=== PATIENT | female | born 1960 | race Caucasian/White ===

== ENCOUNTER 2017-02-04 14:15 | Inpatient (IN) | payer SELFPAY ==
[~2017-02-04] VITALS: Ht 165.1 cm; Wt 60.6 kg
[2017-02-04 14:16] VITALS: BP 137/77; PULSE 104; RESP 18; TEMP 100.2; O2SAT 97
[2017-02-04] MEDS ORDERED: LISI20TA PO (14:31)
[2017-02-04] MEDS ORDERED: SODIUM CHLOR 0.9% 1000 ML INJ 1,000 ML IV ONE ×2 (14:45→15:30)
[2017-02-04] MEDS ORDERED: KETOROLAC TROMETHAMINE 30 MG/ML (IVP) VIAL IV PUSH ONE (14:45)
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
--- NOTE | 2017-02-04 15:13 | RADRPT ---
EXAM DATE/TIME: 02/04/2017 14:49 [facility] COMPARISON: No previous studies available for comparison. INDICATIONS : Left leg swelling. MEDICAL HISTORY : None. SURGICAL HISTORY : None. ENCOUNTER: Initial ACUITY: 1 day PAIN SCORE: 0/10 LOCATION: Left leg. TECHNIQUE: Venous ultrasound of the leg was performed from the inguinal ligament to the proximal calf. Real-roby e, color Doppler and spectral tracing, compression and augmentation techniques were used. FINDINGS: There is normal compressibility of the deep venous system from the inguinal region to the proximal ca lf. No echogenic clot is seen in the lumen of the common femoral, femoral, popliteal, and posterior tibial veins. There is a normal response of the venous system to proximal and distal augmentation an d respiration. Multiple lymph nodes are noted in the groin. The largest measure up to 2.9 x 1.6 x 1. 2 cm. There is a small to moderate-sized Ronquillo's cyst in the popliteal fossa measuring 2.5 x 2.5 x 0. 9 cm. CONCLUSION: 1. No evidence of deep venous thrombosis. 2. Multiple moderate-sized Ronquillo's cyst. 3. Multiple lymph nodes in the left groin. Zhen Owen MD on February 04, 2017 at 15:11 Board Certified Radiologist. This report was verified electronically.
[2017-02-04 15:15] LABS: BASOPHIL # 0.1 TH/MM3 (0-0.2); BASOPHIL % 0.5 % (0.0-2.0); EOSINOPHIL # 0.1 TH/MM3 (0-0.4); EOSINOPHIL % 0.6 % (0.0-4.0); HEMATOCRIT 33.2 % (35.0-46.0); HEMO FLAGS DIFF FINAL; LYMPH % 9.5 % (9.0-44.0); LYMPHOCYTE # 1.2 TH/MM3 (1.0-4.8); MEAN CELL VOLUME 107.5 FL (80.0-100.0); MEAN CORPUSCULAR HEMOGLOBIN 36.8 PG (27.0-34.0); MEAN CORPUSCULAR HGB CONC 34.2 % (32.0-36.0); MONO % 7.9 % (0.0-8.0); NEUT % 81.5 % (16.0-70.0); PLATELET COUNT 573 TH/MM3 (150-450); RED BLOOD COUNT 3.09 MIL/MM3 (4.00-5.30); RED CELL DISTRIBUTION WIDTH 14.3 % (11.6-17.2); WHITE BLOOD COUNT 12.3 TH/MM3 (4.0-11.0)
[2017-02-04] MEDS ORDERED: PIPERACIL-TAZO 4.5 GM PREMIX 100 ML IV ONE (15:30)
[2017-02-04] MEDS ORDERED: VANCOMYCIN INJ 1,000 MG in SODIUM CHLOR 0.9% 250 ML INJ 250 ML IV ONE (15:30)
[2017-02-04 15:31] LABS: ALCOHOL LESS THAN 3 MG/DL (0-5); ALKALINE PHOSPHATASE 201 U/L (45-117); ALT (GPT) 39 U/L (10-53); ANION GAP 14 MEQ/L (5-15); AST (GOT) 29 U/L (15-37); BICARBONATE 26.7 MEQ/L (21.0-32.0); BLOOD UREA NITROGEN 7 MG/DL (7-18); CHLORIDE 97 MEQ/L (98-107); GLOMERULAR FILTRATION RATE 64 ML/MIN (>89); SODIUM (NA) 138 MEQ/L (136-145); TOTAL BILIRUBIN ADULT 0.7 MG/DL (0.2-1.0)
[2017-02-04 15:33] LABS: POTASSIUM 2.4 MEQ/L (3.5-5.1)
[2017-02-04] MEDS ORDERED: POTASSIUM CHLORIDE 25 MEQ EFFERVESCENT TAB PO ONE (15:45)
--- NOTE | 2017-02-04 15:55 | RADRPT ---
EXAM DATE/TIME: 02/04/2017 15:24 [facility] COMPARISON: No previous studies available for comparison. INDICATIONS : Left leg swelling and pain. MEDICAL HISTORY : None. SURGICAL HISTORY : None. ENCOUNTER: Initial ACUITY: 1 week PAIN SCORE: 5/10 LOCATION: Left leg. FINDINGS: A single view of the chest demonstrates the lungs to be symmetrically aerated without evidence of mas s, infiltrate or effusion. The cardiomediastinal contours are unremarkable. Osseous structures are intact. There are multiple overlying electrocardiogram leads. CONCLUSION: No acute disease. Zhen Owen MD on February 04, 2017 at 15:53 Board Certified Radiologist. This report was verified electronically.
[2017-02-04 16:57] LABS: BACTERIA, URINE RARE /hpf; BLOOD, URINE SMALL (NEG); COMMENT (UR) CULT NOT INDICATED; CULTURE IF INDICATED CULT NOT INDICATED; GLUCOSE,URINE NEG (NEG); KETONE, URINE NEG (NEG); NITRITE,URINE NEG (NEG); PH, URINE 5.5 (5.0-8.5); SQUAMOUS EPITHELIAL CELL URINE <1 /hpf (0-5); URINE COLOR YELLOW (YELLW/STRAW)
[2017-02-04] MEDS ORDERED: cloNIDine HCL 0.1 MG TAB PO PRN (17:15)
[2017-02-04] MEDS ORDERED: Vancomycin Consult Pharmacy 1 EA OTHER SCH (17:15)
[2017-02-04] MEDS ORDERED: ENALAPRILAT 1.25 MG/ML VIAL IV PUSH PRN (17:15)
[2017-02-04] MEDS ORDERED: HALOPERIDOL LACTATE 5 MG/ML AMP IM PRN (17:30)
[2017-02-04] MEDS ORDERED: GLUCAGON 1 MG/ML VIAL OTHER PRN (17:30)
[2017-02-04] MEDS ORDERED: LACTULOSE SYRUP 20 GM/30 ML CUP PO PRN (17:30)
[2017-02-04] MEDS ORDERED: BISACODYL 10 MG SUPP RECTAL PRN (17:30)
[2017-02-04] MEDS ORDERED: MAGNESIUM HYDROXIDE SUSP 30 ML CUP PO PRN (17:30)
[2017-02-04] MEDS ORDERED: ONDANSETRON HCL 4 MG/2 ML VIAL IVP PRN (17:30)
[2017-02-04] MEDS ORDERED: LORazepam 2 MG/ML VIAL IV PUSH PRN ×4 (17:30)
[2017-02-04] MEDS ORDERED: SODIUM CHLORIDE 0.9% FLUSH 10 ML FLUSH IV FLUSH PRN (17:30)
[2017-02-04] MEDS ORDERED: DEXTROSE 50% IN WATER 50 ML VIAL(D50) IV PUSH PRN (17:30)
[2017-02-04] MEDS ORDERED: IBUPROFEN 400 MG TAB PO PRN (17:30)
[2017-02-04] MEDS ORDERED: SENNOSIDES 8.6 MG TAB PO PRN (17:30)
[2017-02-04] MEDS ORDERED: KETOROLAC TROMETHAMINE 30 MG/ML (IVP) VIAL IV PUSH PRN (17:30)
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
[2017-02-04] MEDS ORDERED: POTASSIUM CHLORIDE 20 MEQ CONTROLLED RELEASE TAB PO ONE (18:15)
[2017-02-04] MEDS: POTASSIUM CHLOR 10 MEQ PREMIX 100 ML IV SCH ×3 (19:16→23:39)
[2017-02-04 20:47] VITALS: BP 104/52; PULSE 88; RESP 18; TEMP 98.4; O2SAT 96
[2017-02-04] MEDS: INSULIN ASPART SUPPLEMENTAL SCALE SQ SCH (21:00)
[2017-02-04] MEDS: DOCUSATE SODIUM 50 MG/SENNA 8.6 MG TAB PO SCH (21:00)
[2017-02-04] MEDS: IBUPROFEN 800 MG TAB PO PRN (21:36)
[2017-02-04] MEDS: PIPERACIL-TAZO 3.375 GM PREMIX 50 ML IV SCH (21:37)
[2017-02-04] MEDS: HEPARIN SODIUM - SQ 10,000 UNITS/ML VIAL SQ SCH (21:38)
[2017-02-04] MEDS: SODIUM CHLORIDE 0.9% FLUSH 10 ML FLUSH IV FLUSH SCH (21:39)
[2017-02-04] MEDS: MORPHINE SULFATE 4 MG/ML INJ IV PUSH PRN (23:49)
[2017-02-05] VITALS (11 sets, daily range): BP systolic 111–136; BP diastolic 56–64; PULSE 75–91; RESP 18–20; TEMP 97.2–100; O2SAT 94–99
[2017-02-05] MEDS: PIPERACIL-TAZO 3.375 GM PREMIX 50 ML IV SCH ×4 (03:11→20:35)
[2017-02-05] MEDS ORDERED: VANCOMYCIN 1,500 MG/NS 500 ML IV ONE ×2 (06:00)
[2017-02-05] MEDS: INSULIN ASPART SUPPLEMENTAL SCALE SQ SCH ×4 (08:00→20:36)
[2017-02-05] MEDS: THIAMINE HCL 100 MG TAB PO SCH (08:27)
[2017-02-05] MEDS: LISINOPRIL 20 MG TAB PO SCH (08:27)
[2017-02-05] MEDS: FOLIC ACID 1 MG TAB PO SCH (08:27)
[2017-02-05] MEDS: MULTIVITAMINS/MINERALS THERAPEUTIC TAB PO SCH (08:27)
[2017-02-05] MEDS: SODIUM CHLORIDE 0.9% FLUSH 10 ML FLUSH IV FLUSH SCH ×2 (08:28→20:35)
[2017-02-05] MEDS: HEPARIN SODIUM - SQ 10,000 UNITS/ML VIAL SQ SCH ×2 (08:28→20:36)
[2017-02-05] MEDS: NICOTINE 21 MG/24 HR PATCH T-DERMAL SCH (08:28)
[2017-02-05] MEDS: REMOVE OLD PATCH T-DERMAL SCH (08:28)
[2017-02-05] MEDS: DOCUSATE SODIUM 50 MG/SENNA 8.6 MG TAB PO SCH ×2 (08:28→20:36)
[2017-02-05] MEDS: KETOROLAC TROMETHAMINE 30 MG/ML (IVP) VIAL IV PUSH PRN ×3 (08:29→20:43)
[2017-02-05 09:12] LABS: AUTOMATED NEUTROPHIL # 6.7 TH/MM3 (1.8-7.7); BASOPHIL % 0.5 % (0.0-2.0); EOSINOPHIL # 0.1 TH/MM3 (0-0.4); EOSINOPHIL % 1.6 % (0.0-4.0); HEMATOCRIT 25.9 % (35.0-46.0); HEMO FLAGS DIFF FINAL; LYMPH % 12.6 % (9.0-44.0); LYMPHOCYTE # 1.1 TH/MM3 (1.0-4.8); MEAN CELL VOLUME 109.1 FL (80.0-100.0); MEAN CORPUSCULAR HEMOGLOBIN 37.3 PG (27.0-34.0); MEAN CORPUSCULAR HGB CONC 34.2 % (32.0-36.0); MONO % 8.2 % (0.0-8.0); NEUT % 77.1 % (16.0-70.0); PLATELET COUNT 447 TH/MM3 (150-450); RED BLOOD COUNT 2.37 MIL/MM3 (4.00-5.30); RED CELL DISTRIBUTION WIDTH 15.3 % (11.6-17.2); WHITE BLOOD COUNT 8.7 TH/MM3 (4.0-11.0)
[2017-02-05 09:53] LABS: BICARBONATE 22.9 MEQ/L (21.0-32.0)
[2017-02-05 09:57] LABS: POTASSIUM 2.9 MEQ/L (3.5-5.1)
[2017-02-05] MEDS: MORPHINE SULFATE 4 MG/ML INJ IV PUSH PRN ×2 (10:08→18:16)
[2017-02-05] MEDS: ACETAMINOPHEN 325 MG TAB PO PRN (11:24)
[2017-02-05 12:36] LABS: TRANSFERRIN IRON PROFILE 136 MG/DL (200-360)
[2017-02-05 12:39] LABS: FERRITIN 219 NG/ML (8-252)
--- NOTE | 2017-02-05 15:50 | HHI.PR ---
Subjective Remarks baseline is very active- go dancing every night till about 2 weeks ago, fever and chills then noted swelling of the left foot progressing to the leg and knee to the point that she needed a walker to get around noted swelling of the left elbow complains of pain left knee, foot and elbow states the swelling and redness actually is improved compared to admission from last night Objective Vitals Vital Signs Date Time Temp Pulse Resp B/P (MAP) Pulse Ox O2 Delivery O2 Flow Rate FiO2 02/05/17 14:45 95 02/05/17 12:34 99.7 85 20 121/61 (81) 95 02/05/17 10:14 16 02/05/17 09:48 18 02/05/17 08:43 99.3 90 20 136/63 (87) 95 02/05/17 08:00 75 02/05/17 05:59 97.2 78 18 115/62 (79) 95 02/05/17 04:24 96 02/05/17 00:00 99.2 80 18 120/59 (79) 95 02/04/17 20:47 98.4 88 18 104/52 (69) 96 02/04/17 16:55 18 I/O 02/04/17 02/04/17 02/04/17 02/05/17 02/05/17 02/05/17 07:00 15:00 23:00 07:00 15:00 23:00 Intake Total 2300 ml 250 ml Balance 2300 ml 250 ml Intake IV Total 2300 ml 250 ml # Voids 3 Result Diagram: 02/05/17 0756 02/05/17 0756 Imaging Last Impressions Lower Extremity Ultrasound 02/04/17 0000 Signed Impressions: Service Date/Time: Saturday, February 04, 2017 14:49 - CONCLUSION: 1. No evidence of deep venous thrombosis. 2. Multiple moderate-sized Ronquillo's cyst. 3. Multiple lymph nodes in the left groin. Zhen Owen MD Chest X-Ray 02/04/17 0000 Signed Impressions: Service Date/Time: Saturday, February 04, 2017 15:24 - CONCLUSION: No acute disease. Zhen Owen MD Objective Remarks awake and alert, oriented x 3 anciteric lungs no rales regular rhythm abdomen soft, nontender LLE- swelling of the knee with effusion noted on medial area, and swelling of the foot with marked erythema ++ DP,PT, gaot testing deferred A/P Problem List: (1) Sepsis affecting skin ICD Code: A41.9 - Sepsis, unspecified organism (2) Cellulitis of left lower extremity ICD Code: L03.116 - Cellulitis of left lower limb Assessment and Plan This is a 56-year-old female with history of hypertension and borderline diabetes mellitus. She complained of 10 day history of left lower extremity pain and swelling. Started with a blister in the left heel. She then noted progressive pain and swelling of the left foot, ankle and all the way to the knee associated with fever and chills. No purulent discharge. She also complained of left elbow pain from overuse as she was limping and had to use her left upper extremity more than usual. Sepsis secondary to left lower extremity cellulitis r/o septic joints Left elbow effusion- per patient on and off chronic denies any trauma check MRI of the left foot and knee, elbow- if + fluid- get arthrocentesis check ESR, CRP now Continue IV vancomycin and Zosyn and follow-up blood culture Ultrasound of the lower extremity revealed no DVT, + ronquillo's cyst. Pain Management with ibuprofen and IV morphine possible consult Infectious disease Hypokalemia secondary to medication(HCTZ) and alcohol abuse. replace and ff hold hydrochlorothiazide Macrocytic anemia. B12, folate normal ALcohol use- daily - vodka nightly. denies any history of DTS Hypertension. Continue lisinopril with as needed IV Vasotec and clonidine and monitor Borderline diabetes with this. Monitor fingersticks with sliding scale coverage. DVT prophylaxis with subcutaneous heparin Venkat Faust MD Feb 05, 2017 15:50
[2017-02-05 16:09] LABS: HEMOGLOBIN A1a 1.2 %; HEMOGLOBIN A1b 0.8 %; HEMOGLOBIN Ao 86.1 %; HEMOGLOBIN F 0.9 %; HEMOGLOBIN LA1C 1.6 %; HEMOGLOBIN P3 4.8 %
[2017-02-05] MEDS: NS + KCL 20 MEQ INJ 1,000 ML IV SCH (16:29)
[2017-02-05] MEDS: IBUPROFEN 800 MG TAB PO PRN (16:36)
[2017-02-05] MEDS: POTASSIUM CHLOR 10 MEQ PREMIX 100 ML IV SCH ×3 (16:53→19:00)
[2017-02-06] VITALS (9 sets, daily range): BP systolic 132–165; BP diastolic 68–81; PULSE 68–117; RESP 18–24; TEMP 98.3–99; O2SAT 89–96
[2017-02-06] MEDS: PIPERACIL-TAZO 3.375 GM PREMIX 50 ML IV SCH ×4 (02:37→21:30)
[2017-02-06] MEDS: NS + KCL 20 MEQ INJ 1,000 ML IV SCH ×2 (02:38→15:35)
[2017-02-06] MEDS: IBUPROFEN 800 MG TAB PO PRN (02:41)
[2017-02-06] MEDS: MORPHINE SULFATE 4 MG/ML INJ IV PUSH PRN ×5 (04:47→21:29)
[2017-02-06] MEDS ORDERED: VANCOMYCIN INJ 1,500 MG in SODIUM CHLORID 0.9% 500 ML INJ 500 ML IV SCH (06:00)
[2017-02-06 07:04] LABS: AUTOMATED NEUTROPHIL # 5.6 TH/MM3 (1.8-7.7); BASOPHIL % 0.5 % (0.0-2.0); EOSINOPHIL # 0.1 TH/MM3 (0-0.4); EOSINOPHIL % 1.7 % (0.0-4.0); HEMATOCRIT 23.3 % (35.0-46.0); HEMO FLAGS DIFF FINAL; LYMPH % 13.2 % (9.0-44.0); MEAN CELL VOLUME 108.9 FL (80.0-100.0); MEAN CORPUSCULAR HEMOGLOBIN 36.9 PG (27.0-34.0); MEAN CORPUSCULAR HGB CONC 33.9 % (32.0-36.0); NEUT % 76.6 % (16.0-70.0); PLATELET COUNT 370 TH/MM3 (150-450); RED BLOOD COUNT 2.14 MIL/MM3 (4.00-5.30); RED CELL DISTRIBUTION WIDTH 14.9 % (11.6-17.2); WHITE BLOOD COUNT 7.4 TH/MM3 (4.0-11.0)
[2017-02-06 07:26] LABS: BICARBONATE 22.2 MEQ/L (21.0-32.0); POTASSIUM 3.1 MEQ/L (3.5-5.1)
[2017-02-06] MEDS: INSULIN ASPART SUPPLEMENTAL SCALE SQ SCH ×4 (08:00→21:00)
[2017-02-06] MEDS: REMOVE OLD PATCH T-DERMAL SCH (08:39)
[2017-02-06] MEDS: NICOTINE 21 MG/24 HR PATCH T-DERMAL SCH (08:39)
[2017-02-06] MEDS: LISINOPRIL 20 MG TAB PO SCH ×2 (08:40→09:00)
[2017-02-06] MEDS: FOLIC ACID 1 MG TAB PO SCH (08:40)
[2017-02-06] MEDS: HEPARIN SODIUM - SQ 10,000 UNITS/ML VIAL SQ SCH ×2 (08:41→21:00)
[2017-02-06] MEDS: SODIUM CHLORIDE 0.9% FLUSH 10 ML FLUSH IV FLUSH SCH ×2 (08:41→21:30)
[2017-02-06] MEDS: THIAMINE HCL 100 MG TAB PO SCH (08:41)
[2017-02-06] MEDS: MULTIVITAMINS/MINERALS THERAPEUTIC TAB PO SCH (08:41)
[2017-02-06] MEDS: DOCUSATE SODIUM 50 MG/SENNA 8.6 MG TAB PO SCH ×2 (08:41→21:28)
--- NOTE | 2017-02-06 10:57 | HHI.PR ---
Subjective Remarks patient complains of more pain and swelling of the left foot/ankle left elbow increase in swelling + explosive diarrhea- " pretty much for years" had colonoscopy done 2 yers ago- reportedly normal 02/05 baseline is very active- go dancing every night till about 2 weeks ago, fever and chills then noted swelling of the left foot progressing to the leg and knee to the point that she needed a walker to get around noted swelling of the left elbow Objective Vitals Vital Signs Date Time Temp Pulse Resp B/P (MAP) Pulse Ox O2 Delivery O2 Flow Rate FiO2 02/06/17 09:34 68 02/06/17 08:39 96 21 02/06/17 07:49 99.0 79 20 141/74 (96) 93 02/06/17 04:00 98.4 90 18 138/75 (96) 93 02/06/17 02:49 82 02/06/17 00:00 98.3 81 18 132/68 (89) 96 02/05/17 20:49 99 02/05/17 20:00 100.0 91 18 134/64 (87) 94 02/05/17 18:28 18 02/05/17 16:00 99.1 89 20 111/56 (74) 97 02/05/17 15:46 85 02/05/17 14:45 95 02/05/17 12:34 99.7 85 20 121/61 (81) 95 I/O 02/05/17 02/05/17 02/05/17 02/06/17 02/06/17 02/06/17 07:00 15:00 23:00 07:00 15:00 23:00 Intake Total 250 ml 600 ml 347 ml 694 ml Balance 250 ml 600 ml 347 ml 694 ml Intake Oral 600 ml IV Total 250 ml 347 ml 694 ml # Voids 3 2 2 1 # Bowel Movements 0 1 0 Result Diagram: 02/06/1736 02/06/1736 Imaging Last Impressions Lower Extremity Ultrasound 02/04/17 0000 Signed Impressions: Service Date/Time: Saturday, February 04, 2017 14:49 - CONCLUSION: 1. No evidence of deep venous thrombosis. 2. Multiple moderate-sized Ronquillo's cyst. 3. Multiple lymph nodes in the left groin. Zhen Owen MD Chest X-Ray 02/04/17 0000 Signed Impressions: Service Date/Time: Saturday, February 04, 2017 15:24 - CONCLUSION: No acute disease. Zhen Owen MD Last Impressions Lower Extremity Ultrasound 02/04/17 Signed Impressions: Service Date/Time: Saturday, February 04, 2017 14:49 - CONCLUSION: 1. No evidence of deep venous thrombosis. 2. Multiple moderate-sized Ronquillo's cyst. 3. Multiple lymph nodes in the left groin. Zhen Owen MD Chest X-Ray 02/04/17 Signed Impressions: Service Date/Time: Saturday, February 04, 2017 15:24 - CONCLUSION: No acute disease. Zhen Owen MD Objective Remarks awake and alert, oriented x 3 anicteric lungs no rales regular rhythm abdomen soft, nontender LLE- swelling of the knee with effusion noted on medial area, not hot Increase swelling and erythema of the left foot/ankle, very limited range in motion, hot Left elbow with increase effusion, mild erythema - limited flexion ++ DP, PT, radial pulses gait testing deferred A/P Problem List: (1) Sepsis affecting skin ICD Code: A41.9 - Sepsis, unspecified organism (2) Cellulitis of left lower extremity ICD Code: L03.116 - Cellulitis of left lower limb Assessment and Plan This is a 56-year-old female with history of hypertension and borderline diabetes mellitus. She complained of 10 day history of left lower extremity pain and swelling. Started with a blister in the left heel. She then noted progressive pain and swelling of the left foot, ankle and all the way to the knee associated with fever and chills. No purulent discharge. She also complained of left elbow pain from overuse as she was limping and had to use her left upper extremity more than usual. Sepsis secondary to left lower extremity cellulitis- foot/ankle, knee left elbow r/o septic joints with effusion ESR,CRP elevated. no history of trauma MRI of the left foot and knee, elbow- if + fluid- get arthrocentesis Continue IV vancomycin and Zosyn and follow-up blood culture Ultrasound of the lower extremity revealed no DVT, + ronquillo's cyst. prn IV morphine. DC Ibuprofen with decrease H and H ID consult for recommendations Hypokalemia secondary to medication(HCTZ) and alcohol abuse. KCL po daily. FF BMP hold hydrochlorothiazide Acute anemia- denies any black stools or hematemesis, no abdominal pain, no reflux symptoms- hemodynamically stable recheck in am. Iron studies suggest chronic disease. B12, folate normal [facility] guaiac stools, type and x GI consult for evaluation. DC NSAIDs start PPI Macrocytic anemia. B12, folate normal ALcohol use- daily - 2 shots of vodka and 1 glass gin tonic nightly. CIWA protocol Hypertension. Continue lisinopril with as needed IV Vasotec and clonidine and monitor Borderline diabetes with this. Monitor fingersticks with sliding scale coverage. DVT prophylaxis with subcutaneous heparin- hold for possible tap and because of acute drop in H and H Venkat Faust MD Feb 06, 2017 10:57
[2017-02-06] MEDS ORDERED: POTASSIUM BICARBONATE 25 MEQ EFFERVESCENT TAB PO ONE (11:00)
[2017-02-06] MEDS: PANTOPRAZOLE SOD 40 MG DELAYED RELEASE TAB PO SCH (11:33)
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
[2017-02-06] MEDS: LORazepam 1 MG TAB PO PRN ×2 (16:47→22:48)
[2017-02-06] MEDS: VANCOMYCIN INJ 1,500 MG in SODIUM CHLORID 0.9% 500 ML INJ 500 ML IV SCH (16:50)
--- NOTE | 2017-02-06 17:03 | RADRPT ---
EXAM DATE/TIME: 02/06/2017 15:04 [facility] COMPARISON: No previous studies available for comparison. INDICATIONS : Abscess. MEDICAL HISTORY : Hypertension. SURGICAL HISTORY : Exploratory surgery. ENCOUNTER: Initial ACUITY: 2 day PAIN SCORE: 4/10 LOCATION: Left knee TECHNIQUE: Multiplanar, multisequence MRI examination was performed without contrast. FINDINGS: CRUCIATE LIGAMENTS: ACL and PCL are intact. MENISCI: Medial and lateral menisci are intact. COLLATERAL LIGAMENTS: MCL and LCL complexes are intact. BONE/CARTILAGE: Bone marrow signal is homogeneous. Articular cartilage signal is within normal limits. MISCELLANEOUS: A small joint effusion is present. There is edema in the subcutaneous tissues. CONCLUSION: 1. Joint effusion and subcutaneous edema. 2. No evidence of internal derangement Ruy Pereira MD on February 06, 2017 at 16:59 Board Certified Radiologist. This report was verified electronically.
--- NOTE | 2017-02-06 18:20 | RADRPT ---
EXAM DATE/TIME: 02/06/2017 15:04 [facility] COMPARISON: No previous studies available for comparison. INDICATIONS : Abscess. Pt states wound on heel of left foot. MEDICAL HISTORY : Hypertension. SURGICAL HISTORY : Exploratory surgery on abdomen. ENCOUNTER: Initial ACUITY: 2 day PAIN SCORE: 4/10 LOCATION: Left ankle TECHNIQUE: Multiplanar, multisequence MRI examination was performed without contrast. Patient declined having p ost contrast images. Absence of contrast limits detection and characterization of soft tissue abnorm alities. FINDINGS: There is prominent subcutaneous soft tissue swelling about the medial and lateral ankle without drain able fluid collections. In the skin of the posterior calcaneus, there is an oval area of T2 prolonga tion measuring 7 mm is smooth margins. There is soft tissue thickening in the region of the deltoid ligament medial knee and a small area of T2 prolongation in the marrow at the insertion site in the t alus. No definite fracture seen. The Achilles tendon is normal in appearance. The medial and later al tendons are intact. The plantar fascia is normal in configuration. CONCLUSION: 1. 7 mm cutaneous lesion superficial to the posterior calcaneus without extension into the deep tissu es. 2. Probable disruption of the deltoid ligament with associated contusion in the medial talus. 3. Diffuse soft tissue swelling about the ankle in the subcutaneous tissues.. Renato Morales MD on February 06, 2017 at 18:13 Board Certified Radiologist. This report was verified electronically.
[2017-02-06] MEDS ORDERED: DIATRIZOATE MEGLUM/DIATRIZOATE SOD 9 ML CUP PO ONE (20:00)
[2017-02-07] VITALS (7 sets, daily range): BP systolic 123–153; BP diastolic 70–86; PULSE 103–117; RESP 16–24; TEMP 98.4–100.7; O2SAT 91–97
[2017-02-07] MEDS: MORPHINE SULFATE 4 MG/ML INJ IV PUSH PRN ×5 (00:58→20:29)
[2017-02-07] MEDS: PIPERACIL-TAZO 3.375 GM PREMIX 50 ML IV SCH ×4 (01:27→20:29)
--- NOTE | 2017-02-07 01:39 | RADRPT ---
EXAM DATE/TIME: 02/07/2017 01:15 [facility] COMPARISON: No previous studies available for comparison. INDICATIONS : Anemia. ORAL CONTRAST: Prescribed oral contrast ingested. RADIATION DOSE: 6.74 CTDIvol (mGy) MEDICAL HISTORY : Diabetes mellitus type 2. Hypertension. SURGICAL HISTORY : None. ENCOUNTER: Initial ACUITY: 1 day PAIN SCALE: 7/10 LOCATION: abdomen TECHNIQUE: Volumetric scanning of the abdomen and pelvis was performed. Using automated exposure control and ad justment of the mA and/or kV according to patient size, radiation dose was kept as low as reasonably achievable to obtain optimal diagnostic quality images. DICOM format image data is available electro nically for review and comparison. FINDINGS: LOWER LUNGS: Small bilateral pleural effusions and patchy mild parenchymal disease in the lung bases bilaterally. LIVER: Homogeneous density without lesion. There is no dilation of the biliary tree. No calcified gallston es. SPLEEN: Normal size without lesion. PANCREAS: Within normal limits. KIDNEYS: 3 cm cyst arising in the lateral midpole cortex of the right kidney. Miniscule nonobstructing stone. Left kidney is unremarkable ADRENAL GLANDS: 3 separate areas of lobular mass involving the left adrenal gland, largest measuring about 2.5 cm. Th judy are nonspecific. Right adrenal is unremarkable VASCULAR: There is no aortic aneurysm. BOWEL/MESENTERY: The stomach, small bowel, and colon demonstrate no acute abnormality. There is no free intraperitone al air or fluid. ABDOMINAL WALL: Within normal limits. RETROPERITONEUM: There is no lymphadenopathy. BLADDER: No wall thickening or mass. REPRODUCTIVE: Minimal free pelvic fluid. No adnexal mass. INGUINAL: There is no lymphadenopathy or hernia. MUSCULOSKELETAL: Within normal limits for patient age. CONCLUSION: Lobular masses involving the left adrenal gland. Further characterization with chemical shift MRI sug gested. Right renal cyst. Minimal nonspecific free pelvic fluid. Lung base infiltrates and effusions Rowdy Linder MD on February 07, 2017 at 1:30 Board Certified Radiologist. This report was verified electronically.
[2017-02-07] MEDS: NS + KCL 20 MEQ INJ 1,000 ML IV SCH ×2 (04:35→14:10)
[2017-02-07] MEDS ORDERED: PHARMACY ORDERED LAB ONE (05:45)
[2017-02-07] MEDS: VANCOMYCIN INJ 1,500 MG in SODIUM CHLORID 0.9% 500 ML INJ 500 ML IV SCH (06:29)
[2017-02-07] MEDS: INSULIN ASPART SUPPLEMENTAL SCALE SQ SCH ×4 (07:51→20:42)
[2017-02-07] MEDS: SODIUM CHLORIDE 0.9% FLUSH 10 ML FLUSH IV FLUSH SCH ×2 (07:52→20:28)
[2017-02-07] MEDS: DOCUSATE SODIUM 50 MG/SENNA 8.6 MG TAB PO SCH ×2 (07:52→20:28)
[2017-02-07] MEDS: LISINOPRIL 20 MG TAB PO SCH (07:53)
[2017-02-07] MEDS: HEPARIN SODIUM - SQ 10,000 UNITS/ML VIAL SQ SCH ×2 (07:53→20:43)
[2017-02-07] MEDS: FOLIC ACID 1 MG TAB PO SCH (07:53)
[2017-02-07] MEDS: THIAMINE HCL 100 MG TAB PO SCH (07:53)
[2017-02-07] MEDS: MULTIVITAMINS/MINERALS THERAPEUTIC TAB PO SCH (07:53)
[2017-02-07] MEDS: PANTOPRAZOLE SOD 40 MG DELAYED RELEASE TAB PO SCH (07:53)
[2017-02-07] MEDS: NICOTINE 21 MG/24 HR PATCH T-DERMAL SCH (07:55)
[2017-02-07] MEDS: REMOVE OLD PATCH T-DERMAL SCH (07:55)
[2017-02-07 09:37] LABS: AUTOMATED NEUTROPHIL # 10.7 TH/MM3 (1.8-7.7); BASOPHIL % 0.3 % (0.0-2.0); EOSINOPHIL # 0.1 TH/MM3 (0-0.4); EOSINOPHIL % 0.8 % (0.0-4.0); HEMO FLAGS DIFF FINAL; LYMPH % 10.6 % (9.0-44.0); LYMPHOCYTE # 1.4 TH/MM3 (1.0-4.8); MEAN CELL VOLUME 109.5 FL (80.0-100.0); MEAN CORPUSCULAR HEMOGLOBIN 36.6 PG (27.0-34.0); MEAN CORPUSCULAR HGB CONC 33.4 % (32.0-36.0); MONO % 7.5 % (0.0-8.0); NEUT % 80.8 % (16.0-70.0); PLATELET COUNT 473 TH/MM3 (150-450); RED BLOOD COUNT 2.28 MIL/MM3 (4.00-5.30); RED CELL DISTRIBUTION WIDTH 14.9 % (11.6-17.2); WHITE BLOOD COUNT 13.3 TH/MM3 (4.0-11.0)
[2017-02-07 09:58] LABS: BICARBONATE 20.2 MEQ/L (21.0-32.0); POTASSIUM 3.2 MEQ/L (3.5-5.1)
[2017-02-07 10:12] LABS: RHEUMATOID FACTOR TRIGGER LESS THAN 10.0 IU/ML (0.0-14.9)
[2017-02-07] MEDS: ACETAMINOPHEN 325 MG TAB PO PRN ×2 (11:53→18:08)
--- NOTE | 2017-02-07 13:09 | HHI.PR ---
Subjective Remarks In bed says she feels tired. Pain in her heels is fairly controlled by medications. No fever or chills overnight. No nausea or vomiting, no diarrhea or constipation. Swelling of her left knee is the same. Spoke with Dr. Harper orthopedic doctor recommends antibiotics at this time surgical intervention. Objective Vitals Vital Signs Date Time Temp Pulse Resp B/P (MAP) Pulse Ox O2 Delivery O2 Flow Rate FiO2 02/07/17 12:24 98.4 117 18 139/81 (100) 97 02/07/17 08:18 100.7 107 16 123/70 (87) 91 02/07/17 04:55 98.4 108 24 137/82 (100) 92 02/07/17 00:33 99.3 110 24 153/83 (106) 93 02/06/17 23:36 107 02/06/17 21:35 98.6 117 24 141/81 (101) 89 I/O 02/06/17 02/06/17 02/06/17 02/07/17 02/07/17 02/07/17 07:00 15:00 23:00 07:00 15:00 23:00 Intake Total 694 ml 600 ml 100 ml 856 ml 515 ml Balance 694 ml 600 ml 100 ml 856 ml 515 ml Intake Oral 600 ml IV Total 694 ml 100 ml 856 ml 515 ml # Voids 1 3 1 # Bowel Movements 0 1 Result Diagram: 02/07/17 0830 02/07/17 0830 Imaging Last Impressions Knee MRI 02/06/17 0000 Signed Impressions: Service Date/Time: Monday, February 06, 2017 15:04 - CONCLUSION: 1. Joint effusion and subcutaneous edema. 2. No evidence of internal derangement uRy Pereira MD Ankle MRI 02/06/17 0000 Signed Impressions: Service Date/Time: Monday, February 06, 2017 15:04 - CONCLUSION: 1. 7 mm cutaneous lesion superficial to the posterior calcaneus without extension into the deep tissues. 2. Probable disruption of the deltoid ligament with associated contusion in the medial talus. 3. Diffuse soft tissue swelling about the ankle in the subcutaneous tissues.. Renato Morales MD Abdomen/Pelvis CT 02/06/17 0000 Signed Impressions: Service Date/Time: Tuesday, February 07, 2017 01:15 - CONCLUSION: Lobular masses involving the left adrenal gland. Further characterization with chemical shift MRI suggested. Right renal cyst. Minimal nonspecific free pelvic fluid. Lung base infiltrates and effusions Rowdy Linder MD Abdomen X-Ray 02/06/17 Signed Impressions: Service Date/Time: Monday, February 06, 2017 14:22 - CONCLUSION: Negative exam with no metallic foreign bodies identified. Zhen Owen MD Lower Extremity Ultrasound 02/04/17 Signed Impressions: Service Date/Time: Saturday, February 04, 2017 14:49 - CONCLUSION: 1. No evidence of deep venous thrombosis. 2. Multiple moderate-sized Ronquillo's cyst. 3. Multiple lymph nodes in the left groin. Zhen Owen MD Chest X-Ray 02/04/17 Signed Impressions: Service Date/Time: Saturday, February 04, 2017 15:24 - CONCLUSION: No acute disease. Zhen Owen MD Objective Remarks GENERAL: Pleasant 56-year-old female, awake, alert and oriented x 3, appears sleepy and tired. CARDIOVASCULAR: Regular rate and rhythm. RESPIRATORY: No accessory muscle use. Clear to auscultation. Breath sounds equal bilaterally. GASTROINTESTINAL: Abdomen soft, non-tender, nondistended. Hepatic and splenic margins not palpable. MUSCULOSKELETAL: LLE Swelling of the knee with effusion noted on medial area. Increase swelling and erythema of the left foot/ankle, very limited range in motion, hot Left elbow with increase effusion, mild erythema - limited flexion. 2+ DP, PT, radial pulses NEUROLOGICAL: Awake and alert. No obvious cranial nerve deficits. Motor grossly within normal limits. Normal speech. A/P Problem List: (1) Sepsis affecting skin ICD Code: A41.9 - Sepsis, unspecified organism (2) Cellulitis of left lower extremity ICD Code: L03.116 - Cellulitis of left lower limb Assessment and Plan This is a 56-year-old female with history of hypertension and borderline diabetes mellitus. She complained of 10 day history of left lower extremity pain and swelling. Started with a blister in the left heel. She then noted progressive pain and swelling of the left foot, ankle and all the way to the knee associated with fever and chills. No purulent discharge. She also complained of left elbow pain from overuse as she was limping and had to use her left upper extremity more than usual. Sepsis secondary to left lower extremity cellulitis- foot/ankle, knee left elbow r/o septic joints with effusion ESR,CRP elevated. no history of trauma MRI of the left foot and knee, elbow- if + fluid- get arthrocentesis Continue IV vancomycin and Zosyn and follow-up blood culture Ultrasound of the lower extremity revealed no DVT, + ronquillo's cyst. prn IV morphine. DC Ibuprofen with decrease H and H ID consult, appreciate recommendations Left knee swelling and effusion: Consult ortho seen by Dr Harper appreciate recommendations. Recommends continue antibiotics, no surgical intervention at this time. Consult PT Hypokalemia secondary to medication(HCTZ) and alcohol abuse. KCL po daily. FF BMP Hold hydrochlorothiazide Acute anemia- denies any black stools or hematemesis, no abdominal pain, no reflux symptoms- hemodynamically stable Monitor h/h. Iron studies suggest chronic disease. B12, folate normal Chekc guaiac stools, type and x GI consult for evaluation. DC NSAIDs Started PPI Macrocytic anemia likely related to ETOH use. B12, folate normal Alcohol use- daily - 2 shots of vodka and 1 glass gin tonic nightly. CIWA protocol Hypertension. Continue lisinopril with as needed IV Vasotec and clonidine and monitor Borderline diabetes. Monitor fingersticks with sliding scale coverage. DVT prophylaxis with subcutaneous heparin- hold for possible tap and because of acute drop in H and H Discussed with the patient, nurse, Dr. Harper orthopedic doctor. Discharge Planning DC when improved and cleared by consultants. Raquel Jimenez MD Feb 07, 2017 13:09
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
--- NOTE | 2017-02-07 15:36 | HHI.GIFU ---
Subjective Remarks Resting in bed. Still having LLE and LUE swelling. No obvious GI bleeding and denies any GI symptoms. She reports that she just had a colonoscopy and another procedure to evaluate her pancreas 2 years ago and is not interested in pursuing EGD/Colonoscopy at this time- would like to try to get the records from her previous procedure first to see if it is still indicated. (Masha Zavaleta) Objective Vitals I&O Vital Signs Date Time Temp Pulse Resp B/P (MAP) Pulse Ox O2 Delivery O2 Flow Rate FiO2 02/07/17 12:24 98.4 117 18 139/81 (100) 97 02/07/17 08:18 100.7 107 16 123/70 (87) 91 02/07/17 04:55 98.4 108 24 137/82 (100) 92 02/07/17 00:33 99.3 110 24 153/83 (106) 93 02/06/17 23:36 107 02/06/17 21:35 98.6 117 24 141/81 (101) 89 I/O 02/06/17 02/06/17 02/06/17 02/07/17 02/07/17 02/07/17 07:00 15:00 23:00 07:00 15:00 23:00 Intake Total 694 ml 600 ml 100 ml 856 ml 515 ml 240 ml Balance 694 ml 600 ml 100 ml 856 ml 515 ml 240 ml Intake Oral 600 ml 240 ml IV Total 694 ml 100 ml 856 ml 515 ml # Voids 1 3 1 2 # Bowel Movements 0 1 Laboratory Laboratory Tests Test 02/07/17 05:45 02/07/17 08:30 Vancomycin Level Trough 25.3 White Blood Count 13.3 Red Blood Count 2.28 Hemoglobin 8.3 Hematocrit 25.0 Mean Corpuscular Volume 109.5 Mean Corpuscular Hemoglobin 36.6 Mean Corpuscular Hemoglobin Concent 33.4 Red Cell Distribution Width 14.9 Platelet Count 473 Mean Platelet Volume 8.3 Neutrophils (%) (Auto) 80.8 Lymphocytes (%) (Auto) 10.6 Monocytes (%) (Auto) 7.5 Eosinophils (%) (Auto) 0.8 Basophils (%) (Auto) 0.3 Neutrophils # (Auto) 10.7 Lymphocytes # (Auto) 1.4 Monocytes # (Auto) 1.0 Eosinophils # (Auto) 0.1 Basophils # (Auto) 0.0 CBC Comment DIFF FINAL Differential Comment Blood Urea Nitrogen 4 Creatinine 0.78 Random Glucose 96 Calcium Level 8.6 Sodium Level 140 Potassium Level 3.2 Chloride Level 107 Carbon Dioxide Level 20.2 Anion Gap 13 Estimat Glomerular Filtration Rate 77 Rheumatoid Factor Screen NEGATIVE Rheumatoid Factor Titer Date/Time Source Procedure Growth Status 02/04/17 14:49 Blood Peripheral Aerobic Blood Culture - Preliminary NO GROWTH IN 3 DAYS Resulted 02/04/17 14:49 Blood Peripheral Anaerobic Blood Culture - Preliminary NO GROWTH IN 3 DAYS Resulted Imaging Last Impressions Knee MRI 02/06/17 Signed Impressions: Service Date/Time: Monday, February 06, 2017 15:04 - CONCLUSION: 1. Joint effusion and subcutaneous edema. 2. No evidence of internal derangement Ruy Pereira MD Ankle MRI 02/06/17 Signed Impressions: Service Date/Time: Monday, February 06, 2017 15:04 - CONCLUSION: 1. 7 mm cutaneous lesion superficial to the posterior calcaneus without extension into the deep tissues. 2. Probable disruption of the deltoid ligament with associated contusion in the medial talus. 3. Diffuse soft tissue swelling about the ankle in the subcutaneous tissues.. Renato Morales MD Abdomen/Pelvis CT 02/06/17 Signed Impressions: Service Date/Time: Tuesday, February 07, 2017 01:15 - CONCLUSION: Lobular masses involving the left adrenal gland. Further characterization with chemical shift MRI suggested. Right renal cyst. Minimal nonspecific free pelvic fluid. Lung base infiltrates and effusions Rowdy Linder MD Abdomen X-Ray 02/06/17 Signed Impressions: Service Date/Time: Monday, February 06, 2017 14:22 - CONCLUSION: Negative exam with no metallic foreign bodies identified. Zhen Owen MD Lower Extremity Ultrasound 02/04/17 Signed Impressions: Service Date/Time: Saturday, February 04, 2017 14:49 - CONCLUSION: 1. No evidence of deep venous thrombosis. 2. Multiple moderate-sized Ronquillo's cyst. 3. Multiple lymph nodes in the left groin. Zhen Owen MD Chest X-Ray 02/04/17 Signed Impressions: Service Date/Time: Saturday, February 04, 2017 15:24 - CONCLUSION: No acute disease. Zhen Owen MD Physical Exam HEENT: Normocephalic; atraumatic; no jaundice. CHEST: Resp even/unlabored CARDIAC: RRR ABDOMEN: Soft, nondistended, nontender; no hepatosplenomegaly; bowel sounds are present in all four quadrants. EXTREMITIES: Left foot edema, left elbow/upper extremity edematous SKIN: Normal; no rash; no jaundice. CUTTING MACHINE FIXER: No focal deficits; alert and oriented times three. (ZavaletaMasha Pierre [facility]) Assessment and Plan Plan ASSESSMENT: - BREE. HH on admission 11.4/33.2. HH has been trending down, 8.3/25.0. No obvious blood loss. She has been taking 6 Advil per day at home for her leg pain along with 2 ETOH drinks per day, but denies any obvious blood loss. She states that she had a normal colonoscopy 2 years ago. She also states that she had a procedure to look at her pancreas because her mother from pancreatic cancer. I asked her if this was an endoscopic us, but she was not sure. She states her colonoscopy was normal. CT Scan abdomen and pelvis without IV Contrast (02/07/17)--> Lobular masses involving the left adrenal gland. Further characterization with chemical shift MRI suggested. Right renal cyst. Minimal nonspecific free pelvic fluid. Lung base infiltrates and effusions. HH 8.3/25.0. D/W patient possible EGD/Colonoscopy- she would like to try to obtain results from last colonoscopy and possible EUS/EGD from Dr. Yayo Carson in [facility] prior to considering repeat procedures. - Diarrhea. C/O 2 day hx of diarrhea. Improved. Stool studies not sent. - Cellulitis LLE, Left elbow swelling with leukocytosis, elevated CRP, sed rate. Per attending. - Adrenal masses on left. MRI recommended. Defer to attending. - Hypokalemia,htn, per attending. K+ 3.2. PLAN: - KASHIF - Cont. PPI - Monitor HH - Transfuse as necessary - Abx per attending. - Send stool for CDiff, O&P, Giardia, C/S, WBC - Obtain records from Dr. Yayo Carson in [place] (EGD/EUS/Colonoscopy) 2 years ago - Consider EGD/Colonoscopy if patient agreeable - Pt seen and examined by Dr. Diallo and myself and this note is written on her behalf (Masha Zavaleta) Physician Comments seen, examined agree with above patient will agree with EGD only mri will think about it-explain importance, may need sedation or open mri op (Supriya Diallo MD) Masha Zavaleta Feb 07, 2017 15:36 Supriya Diallo MD Feb 07, 2017 19:35
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
[2017-02-07 19:26] LABS: WBC, SYNOVIAL FLUID 2460 /MM3 (0-200)
--- NOTE | 2017-02-07 19:51 | RADRPT ---
EXAM DATE/TIME: 02/07/2017 19:02 [facility] COMPARISON: No previous studies available for comparison. INDICATIONS : Pain and swelling. No known injury. MEDICAL HISTORY : None. SURGICAL HISTORY : None. ENCOUNTER: Initial ACUITY: 2 days PAIN SCORE: 4/10 LOCATION: Left Wrist FINDINGS: AP, lateral and oblique views of the left wrist were obtained and demonstrate normal mineralization a nd alignment. Degenerative changes are noted involving the first metacarpal carpal joint and trapeziu m trapezoid joint with sclerosis and mild spurring. There are milder degenerative changes in the radi ocarpal joint with mild sclerosis. There is no acute fracture or malalignment. The ulnar styloid is i ntact. There is mild soft tissue prominence. CONCLUSION: Osteoarthritic change as described. Zhen Owen MD on February 07, 2017 at 19:49 Board Certified Radiologist. This report was verified electronically.
[2017-02-08] VITALS (11 sets, daily range): BP systolic 125–178; BP diastolic 80–97; PULSE 69–114; RESP 19–21; TEMP 96.8–98.8; O2SAT 91–98
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
[2017-02-08] MEDS: LORazepam 1 MG TAB PO PRN ×2 (00:38→11:23)
[2017-02-08] MEDS: ACETAMINOPHEN 325 MG TAB PO PRN ×4 (00:38→21:25)
[2017-02-08] MEDS: NS + KCL 20 MEQ INJ 1,000 ML IV SCH (00:39)
[2017-02-08] MEDS: PIPERACIL-TAZO 3.375 GM PREMIX 50 ML IV SCH ×4 (03:15→21:24)
[2017-02-08] MEDS ORDERED: VANCOMYCIN 1,000 MG/NS 250 ML IV SCH ×2 (06:00)
[2017-02-08] MEDS: INSULIN ASPART SUPPLEMENTAL SCALE SQ SCH ×4 (08:00→21:25)
[2017-02-08] MEDS: REMOVE OLD PATCH T-DERMAL SCH (09:00)
[2017-02-08] MEDS: SODIUM CHLORIDE 0.9% FLUSH 10 ML FLUSH IV FLUSH SCH ×2 (09:00→21:24)
[2017-02-08] MEDS: DOCUSATE SODIUM 50 MG/SENNA 8.6 MG TAB PO SCH ×2 (09:00→21:24)
[2017-02-08] MEDS ORDERED: CHLORHEXIDINE GLUCONATE 2 % 1 PACK (2 CLOTHS) TOPICAL PRN (09:45)
[2017-02-08] MEDS ORDERED: METOPROLOL TARTRATE 25 MG TAB PO PRN (09:45)
[2017-02-08] MEDS ORDERED: SODIUM CHLORID 0.9% 500 ML IV PRN (09:45)
[2017-02-08] MEDS ORDERED: INSULIN HUMAN REGULAR 1,000 UNITS/10 ML VIAL SQ PRN (09:45)
[2017-02-08] MEDS ORDERED: POVIDONE IODINE 5% (ANTISEPSIS KIT) 4 APPLICATIONS EACH NARE PRN (09:45)
[2017-02-08] MEDS ORDERED: LACTATED RINGER'S 1000 ML IV PRN (09:45)
[2017-02-08] MEDS ORDERED: DO NOT ADM ANY ANTICOAGULANT DRUGS PRN (09:47)
--- NOTE | 2017-02-08 09:51 | GIPROC ---
[facility] [address] [facility]. [facility], [address] EGD PROCEDURE REPORT EXAM DATE: 02/08/2017 PATIENT NAME: SundayBetty MR #: [id number] BIRTHDATE: 1960 ATTENDING: Tesfaye Kaur MD ORDER #: [id number] MUSICAL ENGINEER: Domenico Mondragon and Citlalli Baldwin STATUS: inpatient INDICATIONS: The patient is a 56 yr old female here for an EGD due to anemia PROCEDURE PERFORMED: EGD w/ biopsy MEDICATIONS: None and Per Anesthesia. TOPICAL ANESTHETIC: none CONSENT: The patient understands the risks and benefits of the procedure and understands that these risks include, but are not limited to: sedation, allergic reaction, infection, perforation and/or bleeding. Alternative means of evaluation and treatment include, among others: physical exam, x-rays, and/or surgical intervention. The patient elects to proceed with this endoscopic procedure. medical equipment was checked for proper function. Hand hygiene and appropriate measures for infection prevention was taken. After the risks, benefits and alternatives of the procedure were thoroughly explained, Informed consent was verified, confirmed and timeout was successfully executed by the treatment team. The patient was anesthetized with topical anesthesia and the Pentax EG-[id number] endoscope was introduced through the mouth and advanced to the second portion of the duodenum. Retroflexion was performed and was normal The gastroscope was then slowly withdrawn and removed. ESOPHAGUS: There was LA Class A esophagitis noted. A 2 cm hiatal hernia was noted. STOMACH: There was mild erosive gastritis in the gastric antrum. Multiple biopsies were performed using cold forceps. DUODENUM: The duodenal mucosa appeared normal in the bulb and second portion of the duodenum. ADVERSE EVENTS: There were no complications. IMPRESSIONS: 1. There was LA Class A esophagitis noted 2. 2 cm hiatal hernia 3. There was mild gastritis in the gastric antrum; multiple biopsies were performed 4. Normal duodenal mucosa in the bulb and second portion of the duodenum 5. Retroflexion was performed and was normal RECOMMENDATIONS: 1. Await biopsy results. Biopsy results will not be ready for 7-10 days. If you don't hear from us in two weeks, call our office for biopsy results. 2. Continue PPI 3. Obtain record pf previous Colonoscopy 4. Capsule Endoscopy as out patient if continue to drop HH PATIENT CONDITION: stable DISPOSITION: Observation REPEAT EXAM: NONE Tesfaye Kaur MD eSigned: Tesfaye Kaur MD 02/08/2017 9:51 AM cc: PATIENT NAME: ChasBetty mcgrath MR#: [id number]
[2017-02-08] MEDS: LISINOPRIL 20 MG TAB PO SCH (11:02)
[2017-02-08] MEDS: NICOTINE 21 MG/24 HR PATCH T-DERMAL SCH (11:02)
[2017-02-08] MEDS: MULTIVITAMINS/MINERALS THERAPEUTIC TAB PO SCH (11:02)
[2017-02-08] MEDS: PANTOPRAZOLE SOD 40 MG DELAYED RELEASE TAB PO SCH (11:02)
[2017-02-08] MEDS: FOLIC ACID 1 MG TAB PO SCH (11:02)
[2017-02-08] MEDS: HEPARIN SODIUM - SQ 10,000 UNITS/ML VIAL SQ SCH ×2 (11:03→21:26)
[2017-02-08] MEDS: THIAMINE HCL 100 MG TAB PO SCH (11:03)
[2017-02-08] MEDS ORDERED: LIDOCAINE HCL 2% PF SOLN 10 ML VIAL INFIL STA (12:20)
[2017-02-08] MEDS: MORPHINE SULFATE 4 MG/ML INJ IV PUSH PRN ×2 (13:18→18:55)
--- NOTE | 2017-02-08 13:19 | HHI.PR ---
Subjective Remarks left wrist no better or worse subjectively Objective Vital Signs Date Time Temp Pulse Resp B/P (MAP) Pulse Ox O2 Delivery O2 Flow Rate FiO2 02/08/17 11:42 97.8 112 20 178/82 (114) 94 02/08/17 08:13 98.1 108 20 161/96 (117) 97 02/08/17 08:10 96.8 110 20 168/80 (109) 98 02/08/17 04:45 97.1 69 19 125/84 (98) 96 02/08/17 00:30 98.8 80 20 130/80 (97) 95 02/07/17 20:00 99.2 106 18 135/86 (102) 94 02/07/17 20:00 115 02/07/17 16:56 98.7 103 18 131/82 (98) 95 02/07/17 16:33 97 I/O 02/07/17 02/07/17 02/07/17 02/08/17 02/08/17 02/08/17 07:00 15:00 23:00 07:00 15:00 23:00 Intake Total 856 ml 515 ml 1115 ml 250 ml 500 ml Balance 856 ml 515 ml 1115 ml 250 ml 500 ml Intake Oral 1065 ml 200 ml IV Total 856 ml 515 ml 50 ml 50 ml Other 500 ml # Voids 1 3 2 # Bowel Movements 0 0 Result Diagram: 02/07/17 0830 02/07/17 0830 Procedures left wrist aspiration, sent for C&S; clear straw colored fluid, no purulence encountered; done sterilely with 2% plain lidocaine Objective Remarks left UE decreased edema and erythema but ammonia still operator to palpation does not appear to be from joint but 4th dorsal compartment tendons CR<2 seconds all compartments soft NVI AA x O x 3 very pleasant Assessment and Plan Problem List: (1) Left wrist pain ICD Codes: M25.532 - Pain in left wrist Plan: left wrist aspirated, sent for culture; clear straw colored fluid encountered continue elevation/abx no surgical treatment indicated Tanmay Soriano III, MD Feb 08, 2017 13:19
--- NOTE | 2017-02-08 13:20 | EKG ---
Date Performed: 02/08/2017 Time Performed: 08:19:36 PTAGE: 56 years EKG: SINUS TACHYCARDIA LOW QRS VOLTAGE IN PRECORDIAL LEADS ABNORMAL RHYTHM ECG NO PREVIOUS TRACING DOCTOR: Gavin Flores Interpretating Date/Time 02/08/2017 13:15:38
[2017-02-08] MEDS: LORazepam 2 MG TAB PO PRN ×2 (14:17→21:24)
--- NOTE | 2017-02-08 14:48 | HHI.PR ---
Subjective Remarks Follow-up for shortness of breath, joint pain Joint pain still moderate with swelling. Patient however is more short of breath today than yesterday, mildly wheezing. She smokes about one half pack a day for the last 20 years. No chest pain. No nausea or vomiting. Objective Vitals Vital Signs Date Time Temp Pulse Resp B/P (MAP) Pulse Ox O2 Delivery O2 Flow Rate FiO2 02/08/17 11:42 97.8 112 20 178/82 (114) 94 02/08/17 08:13 98.1 108 20 161/96 (117) 97 02/08/17 08:10 96.8 110 20 168/80 (109) 98 02/08/17 04:45 97.1 69 19 125/84 (98) 96 02/08/17 00:30 98.8 80 20 130/80 (97) 95 02/07/17 20:00 99.2 106 18 135/86 (102) 94 02/07/17 20:00 115 02/07/17 16:56 98.7 103 18 131/82 (98) 95 02/07/17 16:33 97 I/O 02/07/17 02/07/17 02/07/17 02/08/17 02/08/17 02/08/17 07:00 15:00 23:00 07:00 15:00 23:00 Intake Total 856 ml 515 ml 1115 ml 250 ml 500 ml Balance 856 ml 515 ml 1115 ml 250 ml 500 ml Intake Oral 1065 ml 200 ml IV Total 856 ml 515 ml 50 ml 50 ml Other 500 ml # Voids 1 3 2 # Bowel Movements 0 0 Result Diagram: 02/07/1730 02/07/17 0830 Objective Remarks GENERAL: Pleasant 56-year-old female, awake, alert and oriented x 3 CARDIOVASCULAR: Regular rate and rhythm. RESPIRATORY: Occasional wheezing in the upper lobes, no crackles GASTROINTESTINAL: Abdomen soft, non-tender, nondistended. Hepatic and splenic margins not palpable. MUSCULOSKELETAL: LLE Swelling of the knee with effusion noted on medial area. Increase swelling and erythema of the left foot/ankle, very limited range in motion, warm Left elbow with increase effusion, mild erythema, limited range of motion NEUROLOGICAL: Awake and alert 3. No obvious cranial nerve deficits. Motor grossly within normal limits. Normal speech. A/P Problem List: (1) Sepsis affecting skin ICD Code: A41.9 - Sepsis, unspecified organism (2) Cellulitis of left lower extremity ICD Code: L03.116 - Cellulitis of left lower limb Assessment and Plan This is a 56-year-old female with history of hypertension and borderline diabetes mellitus. She complained of 10 day history of left lower extremity pain and swelling. Started with a blister in the left heel. She then noted progressive pain and swelling of the left foot, ankle and all the way to the knee associated with fever and chills. No purulent discharge. She also complained of left elbow pain from overuse as she was limping and had to use her left upper extremity more than usual. Sepsis secondary to left lower extremity cellulitis- foot/ankle, knee left elbow r/o septic joints with effusion ESR,CRP elevated. no history of trauma MRI of the left foot and knee, elbow- if + fluid- get arthrocentesis Continue IV vancomycin and Zosyn and follow-up blood culture, status post arthrocentesis. Synovial fluid studies not consistent with septic arthritis. Discussed with infectious disease, likely rheumatological, will await final culture results. Ultrasound of the lower extremity revealed no DVT, + barkley's cyst. Continue pain control, check anti-CCP, rheumatological workup so far negative. Seen by hand surgery, no surgical intervention for now, elevate left hand Left knee swelling and effusion: Status post arthrocentesis Hypokalemia secondary to medication(HCTZ) and alcohol abuse. KCL po daily. FF BMP Hold hydrochlorothiazide Acute anemia- denies any black stools or hematemesis, no abdominal pain, no reflux symptoms- hemodynamically stable Monitor h/h. Iron studies suggest chronic disease. B12, folate normal [facility] guaiac stools, type and x DC NSAIDs, continue PPI Macrocytic anemia likely related to ETOH use. B12, folate normal Alcohol use- daily - 2 shots of vodka and 1 glass gin tonic nightly. CIWA protocol Hypertension. Continue lisinopril with as needed IV Vasotec and clonidine and monitor Borderline diabetes. Monitor fingersticks with sliding scale coverage. Wheezing, possible COPD exacerbation-start DuoNeb's pynhtj-rza-qoilh and as needed, start low-dose prednisone, will give a dose of Lasix. Check BMP and CBC tomorrow. DVT prophylaxis with subcutaneous heparin- hold for possible tap and because of acute drop in H and H Harmony Manuel MD Feb 08, 2017 14:48
[2017-02-08] MEDS ORDERED: FUROSEMIDE 20 MG/2 ML VIAL IV PUSH ONE (16:15)
[2017-02-08] MEDS: RESP: ALBUTEROL 2.5 MG/IPRATROPIUM 0.5 MG NEB (SCH) NEB (17:35)
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
[2017-02-08 20:59] LABS: BICARBONATE 15.8 MEQ/L (21.0-32.0); POTASSIUM 3.2 MEQ/L (3.5-5.1)
[2017-02-08] MEDS: predniSONE 20 MG TAB PO SCH (21:24)
[2017-02-08] MEDS ORDERED: PHARMACY ORDERED LAB ONE (23:45)
[2017-02-09] VITALS (9 sets, daily range): BP systolic 121–141; BP diastolic 61–82; PULSE 70–109; RESP 16–21; TEMP 97.5–98.8; O2SAT 93–100
[2017-02-09 00:10] LABS: AUTOMATED NEUTROPHIL # 12.5 TH/MM3 (1.8-7.7); BASOPHIL # 0.1 TH/MM3 (0-0.2); BASOPHIL % 0.4 % (0.0-2.0); EOSINOPHIL % 0.2 % (0.0-4.0); HEMATOCRIT 26.4 % (35.0-46.0); HEMO FLAGS DIFF FINAL; LYMPH % 4.3 % (9.0-44.0); LYMPHOCYTE # 0.6 TH/MM3 (1.0-4.8); MEAN CELL VOLUME 109.7 FL (80.0-100.0); MEAN CORPUSCULAR HEMOGLOBIN 37.2 PG (27.0-34.0); MEAN CORPUSCULAR HGB CONC 33.9 % (32.0-36.0); MONO % 6.2 % (0.0-8.0); NEUT % 88.9 % (16.0-70.0); PLATELET COUNT 538 TH/MM3 (150-450); RED CELL DISTRIBUTION WIDTH 15.4 % (11.6-17.2); WHITE BLOOD COUNT 14.1 TH/MM3 (4.0-11.0)
[2017-02-09] MEDS: PIPERACIL-TAZO 3.375 GM PREMIX 50 ML IV SCH ×3 (02:47→17:14)
[2017-02-09] MEDS: RESP: ALBUTEROL 2.5 MG/IPRATROPIUM 0.5 MG NEB (SCH) NEB ×3 (03:11→21:52)
--- NOTE | 2017-02-09 06:52 | MR ---
cc: TANMAY SORIANO III, M.D. DATE 02/08/2017 PREOPERATIVE DIAGNOSIS Left wrist pain. PROCEDURE Left wrist aspiration. SURGEON Tanmay Soriano III, MD PROCEDURE The patient was made comfortable in bed with the assistance of her nurse. An informed written consent was obtained. Preprocedure time out was performed. The left wrist was sterilely prepped and the skin and subcutaneous tissue infiltrated with 2% plain lidocaine. The left radiocarpal joint and then aspirated sterilely and clear straw-colored fluid was encountered 1 cc was withdrawn and placed on a Culturette to be sent to microbiology for analysis. There was no purulence seen. The patient tolerated procedure well. Pressure was held for a minute and a sterile dressing was applied. MD BJ Razo III/JLUIS /1:21 PM /6:44 AM
[2017-02-09] MEDS: INSULIN ASPART SUPPLEMENTAL SCALE SQ SCH ×4 (08:00→20:46)
[2017-02-09 08:06] LABS: AUTOMATED NEUTROPHIL # 9.2 TH/MM3 (1.8-7.7); BASOPHIL % 0.2 % (0.0-2.0); HEMATOCRIT 23.5 % (35.0-46.0); HEMO FLAGS DIFF FINAL; LYMPH % 5.2 % (9.0-44.0); LYMPHOCYTE # 0.5 TH/MM3 (1.0-4.8); MEAN CELL VOLUME 109.6 FL (80.0-100.0); MEAN CORPUSCULAR HEMOGLOBIN 36.5 PG (27.0-34.0); MEAN CORPUSCULAR HGB CONC 33.3 % (32.0-36.0); MONO % 3.6 % (0.0-8.0); PLATELET COUNT 402 TH/MM3 (150-450); RED BLOOD COUNT 2.14 MIL/MM3 (4.00-5.30); RED CELL DISTRIBUTION WIDTH 15.2 % (11.6-17.2); WHITE BLOOD COUNT 10.2 TH/MM3 (4.0-11.0)
[2017-02-09 08:29] LABS: BICARBONATE 19.3 MEQ/L (21.0-32.0); POTASSIUM 3.3 MEQ/L (3.5-5.1)
[2017-02-09] MEDS: FOLIC ACID 1 MG TAB PO SCH (08:56)
[2017-02-09] MEDS: MULTIVITAMINS/MINERALS THERAPEUTIC TAB PO SCH (08:56)
[2017-02-09] MEDS: HEPARIN SODIUM - SQ 10,000 UNITS/ML VIAL SQ SCH (08:56)
[2017-02-09] MEDS: DOCUSATE SODIUM 50 MG/SENNA 8.6 MG TAB PO SCH ×2 (08:56→20:45)
[2017-02-09] MEDS: THIAMINE HCL 100 MG TAB PO SCH (08:56)
[2017-02-09] MEDS: predniSONE 20 MG TAB PO SCH ×2 (08:56→20:46)
[2017-02-09] MEDS: NICOTINE 21 MG/24 HR PATCH T-DERMAL SCH (08:56)
[2017-02-09] MEDS: PANTOPRAZOLE SOD 40 MG DELAYED RELEASE TAB PO SCH (08:57)
[2017-02-09] MEDS: LISINOPRIL 20 MG TAB PO SCH (08:57)
[2017-02-09] MEDS: SODIUM CHLORIDE 0.9% FLUSH 10 ML FLUSH IV FLUSH SCH ×2 (09:00→20:46)
[2017-02-09] MEDS: REMOVE OLD PATCH T-DERMAL SCH (09:00)
[2017-02-09] MEDS: ACETAMINOPHEN 325 MG TAB PO PRN ×2 (10:18→20:46)
[2017-02-09 11:51] LABS: IGA SERUM 121 mg/dL (81-463)
[2017-02-09] MEDS ORDERED: VANCOMYCIN 1,000 MG/NS 250 ML IV SCH ×2 (12:00)
[2017-02-09] MEDS: MORPHINE SULFATE 4 MG/ML INJ IV PUSH PRN ×2 (13:03→17:05)
--- NOTE | 2017-02-09 13:07 | HHI.PR ---
Subjective Remarks left wrist much better today Objective Vital Signs Date Time Temp Pulse Resp B/P (MAP) Pulse Ox O2 Delivery O2 Flow Rate FiO2 02/09/17 12:07 98.6 96 16 121/61 (81) 94 02/09/17 11:04 86 02/09/17 10:02 95 3.00 02/09/17 08:35 97.7 89 17 121/72 (88) 93 02/09/17 05:00 97.6 100 21 141/82 (101) 96 02/09/17 00:00 98.8 109 20 138/80 (99) 96 02/08/17 22:11 94 3.00 02/08/17 20:30 98.1 114 21 140/86 (104) 98 02/08/17 20:00 109 02/08/17 17:55 109 02/08/17 17:40 94 Nasal Cannula 3.00 02/08/17 15:57 97.2 109 20 163/97 (119) 91 I/O 02/08/17 02/08/17 02/08/17 02/09/17 02/09/17 02/09/17 07:00 15:00 23:00 07:00 15:00 23:00 Intake Total 250 ml 1100 ml 700 ml 950 ml Balance 250 ml 1100 ml 700 ml 950 ml Intake Oral 200 ml 600 ml 650 ml 900 ml IV Total 50 ml 50 ml 50 ml Other 500 ml # Voids 2 3 3 2 # Bowel Movements 0 1 0 0 Result Diagram: 02/09/17 0655 02/09/17 0655 Objective Remarks left UE no edema or erythema CR<2 seconds all compartments soft NVI AA x O x 3 very pleasant Assessment and Plan Problem List: (1) Left wrist pain ICD Codes: M25.532 - Pain in left wrist Plan: continue elevation/abx no surgical treatment indicated please recall as needed Tanmay Soriano III, MD Feb 09, 2017 13:07
--- NOTE | 2017-02-09 16:35 | HHI.PR ---
Subjective Remarks Follow-up for possible septic arthritis Joint pains are better, afebrile, lower extremity swelling especially on the left is better. Pain is better. Objective Vitals Vital Signs Date Time Temp Pulse Resp B/P (MAP) Pulse Ox O2 Delivery O2 Flow Rate FiO2 02/09/17 15:46 98.3 92 18 127/74 (91) 94 02/09/17 12:07 98.6 96 16 121/61 (81) 94 02/09/17 11:04 86 02/09/17 10:02 95 3.00 02/09/17 08:35 97.7 89 17 121/72 (88) 93 02/09/17 05:00 97.6 100 21 141/82 (101) 96 02/09/17 00:00 98.8 109 20 138/80 (99) 96 02/08/17 22:11 94 3.00 02/08/17 20:30 98.1 114 21 140/86 (104) 98 02/08/17 20:00 109 02/08/17 17:55 109 02/08/17 17:40 94 Nasal Cannula 3.00 I/O 02/08/17 02/08/17 02/08/17 02/09/17 02/09/17 02/09/17 07:00 15:00 23:00 07:00 15:00 23:00 Intake Total 250 ml 1100 ml 700 ml 950 ml Balance 250 ml 1100 ml 700 ml 950 ml Intake Oral 200 ml 600 ml 650 ml 900 ml IV Total 50 ml 50 ml 50 ml Other 500 ml # Voids 2 3 3 2 # Bowel Movements 0 1 0 0 Result Diagram: 02/09/17 0655 02/09/1755 Objective Remarks GENERAL: Pleasant 56-year-old female, awake, alert and oriented x 3 CARDIOVASCULAR: Regular rate and rhythm. RESPIRATORY: Occasional wheezing in the upper lobes, no crackles GASTROINTESTINAL: Abdomen soft, non-tender, nondistended. Hepatic and splenic margins not palpable. MUSCULOSKELETAL: LLE Swelling of the knee with effusion noted on medial area. Swelling left ankle better, very limited range in motion, warmth is better. Left elbow infusion better, mild erythema, limited range of motion NEUROLOGICAL: Awake and alert 3. No obvious cranial nerve deficits. Motor grossly within normal limits. Normal speech. A/P Problem List: (1) Sepsis affecting skin ICD Code: A41.9 - Sepsis, unspecified organism (2) Cellulitis of left lower extremity ICD Code: L03.116 - Cellulitis of left lower limb Assessment and Plan This is a 56-year-old female with history of hypertension and borderline diabetes mellitus. She complained of 10 day history of left lower extremity pain and swelling. Started with a blister in the left heel. She then noted progressive pain and swelling of the left foot, ankle and all the way to the knee associated with fever and chills. No purulent discharge. She also complained of left elbow pain from overuse as she was limping and had to use her left upper extremity more than usual. Sepsis secondary to left lower extremity cellulitis, possible wrist osteoarthritis- foot/ankle, knee left elbow r/o septic joints with effusion ESR,CRP elevated. no history of trauma MRI of the left foot and knee, Continue IV vancomycin and Zosyn and follow-up blood culture, status post arthrocentesis. Synovial fluid studies not consistent with septic arthritis. Discussed with infectious disease, likely rheumatological, will await final culture results. Continue pain control, follow-up rheumatological workup, so far negative. Seen by hand surgery, no surgical intervention for now, elevate left hand, signed off. Still with leukocytosis. Hypokalemia secondary to medication(HCTZ) and alcohol abuse. KCL po daily. FF BMP Hold hydrochlorothiazide Acute anemia- denies any black stools or hematemesis, no abdominal pain, no reflux symptoms- hemodynamically stable Monitor h/h. Iron studies suggest chronic disease. B12, folate normal, hemoglobin dropped again, recheck CBC tomorrow DC NSAIDs, continue PPI Macrocytic anemia likely related to ETOH use. B12, folate normal Alcohol use- daily - 2 shots of vodka and 1 glass gin tonic nightly. CIWA protocol Hypertension. Continue lisinopril with as needed IV Vasotec and clonidine and monitor Borderline diabetes. Monitor fingersticks with sliding scale coverage. Wheezing, possible COPD exacerbation-start DuoNeb's [id number] and as needed, on low-dose prednisone, status post 1 dose of Lasix. Mild dehydration-status post Lasix, likely over diuresis, start normal saline, recheck BMP tomorrow. DVT prophylaxis: Hold off with anemia and possible bleed Harmony Manuel MD Feb 09, 2017 16:34
[2017-02-09] MEDS: SODIUM CHLOR 0.9% 1000 ML INJ 1,000 ML IV SCH (18:00)
--- NOTE | 2017-02-09 19:08 | HHI.IDPN ---
Subjective Subjective Remarks afebrile co b/l feet burning No growth from synovial fluid clx ADAM/RF neg Mild creatinine bump Antibiotics zosyn Allergies: Coded Allergies: procaine (Verified Allergy, Unknown, 02/04/17) Objective . Vital Signs Date Time Temp Pulse Resp B/P (MAP) Pulse Ox O2 Delivery O2 Flow Rate FiO2 02/09/17 15:46 98.3 92 18 127/74 (91) 94 02/09/17 12:07 98.6 96 16 121/61 (81) 94 02/09/17 11:04 86 02/09/17 10:02 95 3.00 02/09/17 08:35 97.7 89 17 121/72 (88) 93 02/09/17 05:00 97.6 100 21 141/82 (101) 96 02/09/17 00:00 98.8 109 20 138/80 (99) 96 02/08/17 22:11 94 3.00 02/08/17 20:30 98.1 114 21 140/86 (104) 98 02/08/17 20:00 109 . Laboratory Tests Test 02/08/17 23:21 02/09/17 06:55 White Blood Count 14.1 TH/MM3 10.2 TH/MM3 Red Blood Count 2.40 MIL/MM3 2.14 MIL/MM3 Hemoglobin 8.9 GM/DL 7.8 GM/DL Hematocrit 26.4 % 23.5 % Mean Corpuscular Volume 109.7 FL 109.6 FL Mean Corpuscular Hemoglobin 37.2 PG 36.5 PG Mean Corpuscular Hemoglobin Concent 33.9 % 33.3 % Red Cell Distribution Width 15.4 % 15.2 % Platelet Count 538 TH/MM3 402 TH/MM3 Mean Platelet Volume 8.2 FL 8.1 FL Neutrophils (%) (Auto) 88.9 % 91.0 % Lymphocytes (%) (Auto) 4.3 % 5.2 % Monocytes (%) (Auto) 6.2 % 3.6 % Eosinophils (%) (Auto) 0.2 % 0.0 % Basophils (%) (Auto) 0.4 % 0.2 % Neutrophils # (Auto) 12.5 TH/MM3 9.2 TH/MM3 Lymphocytes # (Auto) 0.6 TH/MM3 0.5 TH/MM3 Monocytes # (Auto) 0.9 TH/MM3 0.4 TH/MM3 Eosinophils # (Auto) 0.0 TH/MM3 0.0 TH/MM3 Basophils # (Auto) 0.1 TH/MM3 0.0 TH/MM3 CBC Comment DIFF FINAL DIFF FINAL Differential Comment Laboratory Tests Test 02/08/17 19:10 02/09/17 06:55 Blood Urea Nitrogen 8 MG/DL 10 MG/DL Creatinine 1.36 MG/DL 1.35 MG/DL Random Glucose 93 MG/DL 163 MG/DL Calcium Level 9.4 MG/DL 8.7 MG/DL Sodium Level 140 MEQ/L 143 MEQ/L Potassium Level 3.2 MEQ/L 3.3 MEQ/L Chloride Level 105 MEQ/L 106 MEQ/L Carbon Dioxide Level 15.8 MEQ/L 19.3 MEQ/L Anion Gap 19 MEQ/L 18 MEQ/L Estimat Glomerular Filtration Rate 40 ML/MIN 41 ML/MIN C-Reactive Protein 17.00 MG/DL Microbiology Date/Time Source Procedure Growth Status 02/07/17 16:50 Fluid Synovial Fluid Gram Stain - Final Resulted 02/07/17 16:50 Fluid Synovial Fluid Body Fluid Culture - Preliminary NO GROWTH IN 48 HOURS. Resulted 02/08/17 14:00 Abscess Wrist Gram Stain - Final Resulted 02/08/17 14:00 Abscess Wrist Wound Culture - Preliminary NO GROWTH IN 24 HOURS. Resulted Imaging Last Impressions Chest X-Ray 02/08/17 0000 Signed Impressions: Service Date/Time: February 19:09 - CONCLUSION: New bilateral alveolar infiltrates and small to moderate left effusion. The findings are of concern for congestive heart failure. Zhen Owen MD Wrist X-Ray 02/07/17 0000 Signed Impressions: Service Date/Time: Tuesday, February 07, 2017 19:02 - CONCLUSION: Osteoarthritic change as described. Zhen Owen MD Aspiration 02/07/17 0000 Signed Impressions: Service Date/Time: Tuesday, February 07, 2017 16:38 - CONCLUSION: Uncomplicated aspiration as above. Ruy Pereira MD Knee MRI 02/06/17 0000 Signed Impressions: Service Date/Time: Monday, February 06, 2017 15:04 - CONCLUSION: 1. Joint effusion and subcutaneous edema. 2. No evidence of internal derangement Ruy Pereira MD Ankle MRI 10/31/17 0000 Signed Impressions: Service Date/Time: Monday, February 06, 2017 15:04 - CONCLUSION: 1. 7 mm cutaneous lesion superficial to the posterior calcaneus without extension into the deep tissues. 2. Probable disruption of the deltoid ligament with associated contusion in the medial talus. 3. Diffuse soft tissue swelling about the ankle in the subcutaneous tissues.. Renato Morales MD Abdomen/Pelvis CT 02/06/17 Signed Impressions: Service Date/Time: Tuesday, February 07, 2017 01:15 - CONCLUSION: Lobular masses involving the left adrenal gland. Further characterization with chemical shift MRI suggested. Right renal cyst. Minimal nonspecific free pelvic fluid. Lung base infiltrates and effusions Rowdy Linder MD Abdomen X-Ray 02/06/17 Signed Impressions: Service Date/Time: Monday, February 06, 2017 14:22 - CONCLUSION: Negative exam with no metallic foreign bodies identified. Zhen Owen MD Lower Extremity Ultrasound 02/04/17 Signed Impressions: Service Date/Time: Saturday, February 04, 2017 14:49 - CONCLUSION: 1. No evidence of deep venous thrombosis. 2. Multiple moderate-sized Ronquillo's cyst. 3. Multiple lymph nodes in the left groin. Zhen Owen MD Physical Exam CONSTITUTIONAL/GENERAL: This is an adequately nourished patient, in no apparent distress. TUBES/LINES/DRAINS: SKIN: No jaundice, rashes, or lesions. Skin temperature appropriate. Not diaphoretic. EYES: Pupils equal and round and reactive. Extraocular motions intact. No scleral icterus. No injection or drainage. Fundi not examined. CARDIOVASCULAR: Regular rate and rhythm without murmurs, gallops, or rubs. No JVD. Peripheral pulses symmetric. RESPIRATORY/CHEST: Symmetric, unlabored respirations. Clear to auscultation. Breath sounds equal bilaterally. GASTROINTESTINAL: Abdomen soft, non-tender, nondistended. No hepato-splenomegaly , or palpable masses. No guarding. Bowel sounds present. MUSCULOSKELETAL: Extremities without clubbing, cyanosis, Minimal 1 L foot edema. + joint tenderness and effusion noted in multiple joints: L wrist full ROM L knee and L ankle swelling resolved No calf tenderness. No mottling or clubbing. L heel with smqall dry helaing wound NEUROLOGICAL: Awake and alert. Motor and sensory grossly within normal limits. Follows commands. Clear speech Moves all extremities. PSYCHIATRIC: pleasant and cooperative Assessment & Plan Remarks Febrile illness with oligoarthrits: differentila dx include septic arthrits ( unusual to present simultaneously in multiple joints unless metastatic infection ) vs CTD - negative clx fluid cell count and diff not cw septic arthritis disruption of the deltoid ligament with associated contusion in the medial talus Fever : resolved Unremarkable travel history denies animal, insect exposure REC's: dc abx fu clinically - if does well dc tomorrow with Rheumatology referral Discussed Condition With Tish Mattson MD Feb 09, 2017 19:08
[2017-02-09] MEDS ORDERED: LORazepam 0.5 MG TAB PO ONE (20:30)
[2017-02-10] VITALS (11 sets, daily range): BP systolic 125–158; BP diastolic 78–98; PULSE 91–109; RESP 16–20; TEMP 97.7–98.7; O2SAT 91–96
[2017-02-10] MEDS: RESP: ALBUTEROL 2.5 MG/IPRATROPIUM 0.5 MG NEB (SCH) NEB ×3 (03:47→20:00)
[2017-02-10 03:51] LABS: ENDOMYSIAL AB TITER ND (<1:5); TISSUE TRANSGLUTAMINASE AB LESS THAN 1 U/mL (0-4)
[2017-02-10] MEDS: MORPHINE SULFATE 4 MG/ML INJ IV PUSH PRN ×2 (04:01→14:04)
[2017-02-10] MEDS: SODIUM CHLOR 0.9% 1000 ML INJ 1,000 ML IV SCH (06:10)
[2017-02-10] MEDS: INSULIN ASPART SUPPLEMENTAL SCALE SQ SCH ×4 (08:00→21:00)
[2017-02-10 08:13] LABS: AUTOMATED NEUTROPHIL # 10.2 TH/MM3 (1.8-7.7); BASOPHIL % 0.3 % (0.0-2.0); HEMO FLAGS DIFF FINAL; LYMPH % 6.4 % (9.0-44.0); LYMPHOCYTE # 0.8 TH/MM3 (1.0-4.8); MEAN CELL VOLUME 108.5 FL (80.0-100.0); MEAN CORPUSCULAR HEMOGLOBIN 36.1 PG (27.0-34.0); MEAN CORPUSCULAR HGB CONC 33.3 % (32.0-36.0); NEUT % 86.3 % (16.0-70.0); PLATELET COUNT 459 TH/MM3 (150-450); RED BLOOD COUNT 2.12 MIL/MM3 (4.00-5.30); RED CELL DISTRIBUTION WIDTH 15.1 % (11.6-17.2); WHITE BLOOD COUNT 11.9 TH/MM3 (4.0-11.0)
[2017-02-10 08:48] LABS: BICARBONATE 20.2 MEQ/L (21.0-32.0)
[2017-02-10 08:53] LABS: POTASSIUM 2.7 MEQ/L (3.5-5.1)
[2017-02-10] MEDS: DOCUSATE SODIUM 50 MG/SENNA 8.6 MG TAB PO SCH ×3 (09:00→21:49)
[2017-02-10] MEDS: REMOVE OLD PATCH T-DERMAL SCH (09:00)
[2017-02-10] MEDS: SODIUM CHLORIDE 0.9% FLUSH 10 ML FLUSH IV FLUSH SCH ×2 (09:00→21:00)
[2017-02-10] MEDS: predniSONE 20 MG TAB PO SCH ×2 (09:47→21:49)
[2017-02-10] MEDS: THIAMINE HCL 100 MG TAB PO SCH (09:47)
[2017-02-10] MEDS: PANTOPRAZOLE SOD 40 MG DELAYED RELEASE TAB PO SCH (09:47)
[2017-02-10] MEDS: AZITHROMYCIN INJ 500 MG in SODIUM CHLOR 0.9% 250 ML INJ 250 ML IV SCH (09:47)
[2017-02-10] MEDS: LISINOPRIL 20 MG TAB PO SCH (09:47)
[2017-02-10] MEDS: NICOTINE 21 MG/24 HR PATCH T-DERMAL SCH (09:49)
[2017-02-10] MEDS: ACETAMINOPHEN 325 MG TAB PO PRN (09:55)
[2017-02-10] MEDS ORDERED: POTASSIUM CHLORIDE 10 MEQ CONTROLLED RELEASE TAB PO ONE (10:00)
[2017-02-10] MEDS ORDERED: CEFEPIME INJ 2,000 MG in SODIUM CHLORIDE 0.9% INJ 100 ML IV SCH (10:00)
--- NOTE | 2017-02-10 10:05 | HHI.PR ---
Subjective Remarks Patient seen and examined this am. Vitals are stable and the patient is afebrile. States IV this am hurt her arm so she was unable to go down for her CT. Reports there has been a hard time getting IV access. Denies SOB or CP. Denies any history of chf. She wants to go home. Objective Vital Signs Date Time Temp Pulse Resp B/P (MAP) Pulse Ox O2 Delivery O2 Flow Rate FiO2 02/10/17 06:11 102 02/10/17 04:41 97.7 91 20 153/90 (111) 91 02/10/17 03:49 91 02/10/17 00:25 98.3 98 20 155/98 (117) 91 02/09/17 21:52 94 21 02/09/17 15:46 98.3 92 18 127/74 (91) 94 02/09/17 12:07 98.6 96 16 121/61 (81) 94 02/09/17 11:04 86 02/09/17 10:02 95 3.00 I/O 02/09/17 02/09/17 02/09/17 02/10/17 02/10/17 02/10/17 07:00 15:00 23:00 07:00 15:00 23:00 Intake Total 950 ml 916 ml Balance 950 ml 916 ml Intake Oral 900 ml IV Total 50 ml 916 ml # Voids 2 # Bowel Movements 0 Result Diagram: 02/10/17 0704 02/10/17 0704 Imaging Last Impressions Chest X-Ray 02/08/17 0000 Signed Impressions: Service Date/Time: February 19:09 - CONCLUSION: New bilateral alveolar infiltrates and small to moderate left effusion. The findings are of concern for congestive heart failure. Zhen Owen MD Wrist X-Ray 02/07/17 0000 Signed Impressions: Service Date/Time: Tuesday, February 07, 2017 19:02 - CONCLUSION: Osteoarthritic change as described. Zhen Owen MD Aspiration 02/07/17 0000 Signed Impressions: Service Date/Time: Tuesday, February 07, 2017 16:38 - CONCLUSION: Uncomplicated aspiration as above. uRy Pereira MD Knee MRI 02/06/17 0000 Signed Impressions: Service Date/Time: Monday, February 06, 2017 15:04 - CONCLUSION: 1. Joint effusion and subcutaneous edema. 2. No evidence of internal derangement Ruy Pereira MD Ankle MRI 02/06/17 Signed Impressions: Service Date/Time: Monday, February 06, 2017 15:04 - CONCLUSION: 1. 7 mm cutaneous lesion superficial to the posterior calcaneus without extension into the deep tissues. 2. Probable disruption of the deltoid ligament with associated contusion in the medial talus. 3. Diffuse soft tissue swelling about the ankle in the subcutaneous tissues.. Renato Morales MD Abdomen/Pelvis CT 02/06/17 Signed Impressions: Service Date/Time: Tuesday, February 07, 2017 01:15 - CONCLUSION: Lobular masses involving the left adrenal gland. Further characterization with chemical shift MRI suggested. Right renal cyst. Minimal nonspecific free pelvic fluid. Lung base infiltrates and effusions Rowdy Linder MD Abdomen X-Ray 02/06/17 Signed Impressions: Service Date/Time: Monday, February 06, 2017 14:22 - CONCLUSION: Negative exam with no metallic foreign bodies identified. Zhen Owen MD Lower Extremity Ultrasound 02/04/17 Signed Impressions: Service Date/Time: Saturday, February 04, 2017 14:49 - CONCLUSION: 1. No evidence of deep venous thrombosis. 2. Multiple moderate-sized Ronquillo's cyst. 3. Multiple lymph nodes in the left groin. Zhen Owen MD Objective Remarks GENERAL: well appearing, nad SKIN: Warm and dry. HEAD: Normocephalic. EYES: No scleral icterus. No injection or drainage. NECK: Supple, trachea midline. No JVD or lymphadenopathy. CARDIOVASCULAR: Regular rate and rhythm without murmurs, gallops, or rubs. RESPIRATORY: Breath sounds equal bilaterally. No accessory muscle use. GASTROINTESTINAL: Abdomen soft, non-tender, nondistended. MUSCULOSKELETAL: No cyanosis, or edema. No calf tenderness. A/P Problem List: (1) COPD exacerbation ICD Code: J44.1 - Chronic obstructive pulmonary disease with (acute) exacerbation (2) Bilateral pulmonary infiltrates on chest x-ray ICD Code: R91.8 - Other nonspecific abnormal finding of lung field (3) CHF (congestive heart failure) ICD Code: I50.9 - Heart failure, unspecified (4) Cellulitis of left lower extremity ICD Code: L03.116 - Cellulitis of left lower limb (5) Sepsis affecting skin ICD Code: A41.9 - Sepsis, unspecified organism (6) Left wrist pain ICD Code: M25.532 - Pain in left wrist (7) Hypokalemia ICD Code: E87.6 - Hypokalemia Assessment and Plan In summary this is a 56-year-old female medical history significant for hypertension and diabetes. She presented to the ER for diffuse lower extremity pain and swelling. Initially she started with a blister on her left heel and this progressed to cellulitis of the foot and ankle. Also reported some left elbow pain from overuse. Sepsis on admission secondary to left lower extremity cellulitis, concern for oligo arthritis. She is status post aspiration of the left knee which was not consistent with septic arthritis. The patient is currently afebrile, blood cultures negative to date. Synovial fluid knee and abscess of wrist with no growth. The patient was previously on vancomycin and Zosyn. This was stopped by infectious disease who did not believe that this will rule out infectious process but rheumatologic. Hypokalemia: Likely secondary to HCTZ and alcohol abuse. Potassium today 2.7. Will replete. Macrocytic anemia: Likely related to alcohol abuse. See [facility] protocol. The patient had a EGD with biopsy done on 02 08 for her anemia. Per report 2 cm hiatal hernia noted, class a esophagitis, mild gastritis in the gastric atrium with multiple biopsies obtained, normal duodenal mucosa retroflexion was performed and normal. For now the plan is to await biopsy results may not be ready from 7-10 days, continue PPI, capsule endoscopy as an outpatient if continued drop hemoglobin. Hypertension: Continue lisinopril daily, Vasotec and clonidine when necessary. Diabetes: Sliding scale, diabetic diet. COPD exacerbation: Continue prednisone 20 mg twice a day. Chest x-ray was obtained on 02/08 which showed no bilateral alveolar infiltrates and small to moderate left effusion. ID placed the patient on Cefepime and Azithromy on 02/10. CT chest and thorax ordered as well. Influenza, urine Legionella, urinary pneumococcal and sputum culture obtained. CHF: CXR on 02/08 concerning for CHF, BNF 1348. Will obtain ECHO to eval for CHF. Stop IVF. Strict I & O. DVT prophylaxis: Chemical prophylaxis was held due to concern of anemia and concern for GI bleed Discharge Planning Patient currently undergoing workup for shortness of breath. Echo pending. CT chest and thorax also pending. Discharge pending improvement and stabilization of clinical status. Case discussed with Dr. Stacie Bernardo,Yolanda Arora MD Feb 10, 2017 10:05
[2017-02-10] MEDS ORDERED: PHARMACY ORDERED LAB ONE (11:45)
[2017-02-10] MEDS: RESP: ALBUTEROL 2.5 MG/IPRATROPIUM 0.5 MG NEB (PRN) NEB (17:44)
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
[2017-02-10] MEDS: oxyCODONE/ACETAMINOPHEN 5 MG/325 MG TAB PO PRN (18:26)
[2017-02-10] MEDS ORDERED: FUROSEMIDE 20 MG/2 ML VIAL IV PUSH ONE (18:30)
--- NOTE | 2017-02-10 18:41 | HHI.FPPN ---
Addendum to progress note ADDENDUM Reason for addendum: Additonal documentation Additional information Came and evaluated patient for some shortness of breath. Patient felt like she was having a hard time getting air in. Saturating in the 90s on 2L nasal canula. CXR was ordered and showed new right upper lobe infiltrate suspicious for PNA. Decreased air entry diffusely was appreciated on PE. I am currently also working the patient up for CHF. The following orders were placed and discussed with nurse: - lasix 20 meq IV x1 (monitor for response, replace additional KCL), will use lasix carefully given renal insufficiency and persistent hypokalemia - repeat BMP @ 9pm to ensure adequately replated - please proceed with CT chest/thorax as ordered by ID, patient may have her PO pain medicine prior to this, she does not like morphine - ativan 0.25 mg x1 for anxiety at patient request - restoril 7.5 mg po HS prn insomnia - 2D ECHO pending' - hold all IVF - will add flagyl to patients abx regemine to cover for aspiration PNA Yolanda Bernardo MD Feb 10, 2017 18:41
[2017-02-10] MEDS ORDERED: POTASSIUM CHLORIDE 20 MEQ CONTROLLED RELEASE TAB PO ONE (18:45)
[2017-02-10] MEDS ORDERED: LORazepam 0.5 MG TAB PO ONE (18:45)
[2017-02-10] MEDS ORDERED: TEMAZEPAM 7.5 MG CAP PO ONE (19:00)
[2017-02-10] MEDS: metroNIDAZOLE 500 MG TAB PO SCH (21:49)
[2017-02-11] VITALS (15 sets, daily range): BP systolic 138–173; BP diastolic 74–99; PULSE 92–126; RESP 18–30; TEMP 97.6–98.5; O2SAT 92–100
[2017-02-11] MEDS: RESP: ALBUTEROL 2.5 MG/IPRATROPIUM 0.5 MG NEB (PRN) NEB (00:19)
[2017-02-11] MEDS: oxyCODONE/ACETAMINOPHEN 5 MG/325 MG TAB PO PRN ×3 (00:56→18:58)
[2017-02-11] MEDS: RESP: ALBUTEROL 2.5 MG/IPRATROPIUM 0.5 MG NEB (SCH) NEB ×4 (04:02→22:02)
[2017-02-11] MEDS ORDERED: FUROSEMIDE 20 MG/2 ML VIAL IV PUSH ONE ×2 (04:15→06:00)
[2017-02-11] MEDS ORDERED: POTASSIUM BICARBONATE 25 MEQ EFFERVESCENT TAB PO ONE (04:15)
[2017-02-11] MEDS ORDERED: LORazepam 2 MG/ML VIAL IV PUSH ONE (04:15)
[2017-02-11] MEDS: predniSONE 20 MG TAB PO SCH ×2 (05:00→21:54)
--- NOTE | 2017-02-11 05:57 | RADRPT ---
EXAM DATE/TIME: 02/11/2017 04:20 [facility] COMPARISON: CHEST SINGLE AP, February 10, 2017, 18:06. INDICATIONS : Short of breath. MEDICAL HISTORY : None. SURGICAL HISTORY : None. ENCOUNTER: Subsequent ACUITY: 4 - 6 days PAIN SCORE: Non-responsive. LOCATION: Bilateral chest FINDINGS: Single AP view of the chest. Persistent extensive bilateral pulmonary parenchymal opacity and small l eft pleural effusion. No significant interval change. Cardiomediastinal silhouette unchanged. No evid ence of pneumothorax. CONCLUSION: No significant interval change in bilateral pulmonary consolidation and left pleural effusion. Yogi Burrell MD on February 11, 2017 at 5:55 Board Certified Radiologist. This report was verified electronically.
[2017-02-11] MEDS: metroNIDAZOLE 500 MG TAB PO SCH ×3 (06:00→21:54)
[2017-02-11 06:09] LABS: BLOOD GAS BASE EXCESS -3.1 mmol/L (-2-2); BLOOD GAS CARBOXYHEMOGLOBIN 1.3 % (0-4); BLOOD GAS HCO3 21 mmol/L (22-26); BLOOD GAS METHEMOGLOBIN 0.6 % (0-2); BLOOD GAS O2 HGB SATURATION 84 % (90-100); BLOOD GAS OXYGEN CONTENT 12.4 Vol % (12.0-20.0); BLOOD GAS PCO2 38 mmHg (38-42); BLOOD GAS PO2 59 mmHg (61-120); BLOOD GAS TOTAL HGB 10.5 G/DL (12.0-16.0); TEMP CORR TO 98.6
[2017-02-11 06:11] LABS: CRITICAL VALUE YES; OXYGEN DEVICE SM
[2017-02-11 06:12] LABS: DRAW SITE RT RADIAL; LITER FLOW 10 L/M; NUMBER OF ARTERIAL PUNCTURES 1; STAT YES; ULNAR PULSE PRESENT
[2017-02-11] MEDS: INSULIN ASPART SUPPLEMENTAL SCALE SQ SCH ×4 (08:00→21:00)
--- NOTE | 2017-02-11 08:13 | HHI.PR ---
Subjective Remarks Patient seen and examined this am. Overnight/this am patient had progressively worsening SOB. ABG was done and showed lactic acidosis. She was transferred to the ICU and placed on a non rebreather. She recieved 40 mg lasix IVP. CXR was done and read as no change, but appears more wet. The patient has been seen and examined this am. She is breathing comfortably on the nonrebreather at 98%. She reports a significant difference after receiving the lasix. She denies CP. Reports difficulty sleeping overnight. Objective Vital Signs Date Time Temp Pulse Resp B/P (MAP) Pulse Ox O2 Delivery O2 Flow Rate FiO2 02/11/17 04:00 98.0 126 22 166/99 (121) 95 02/11/17 00:00 97.6 113 18 173/98 (123) 92 02/10/17 20:55 94 Nasal Cannula 3.00 02/10/17 20:00 98.1 109 16 125/78 (94) 95 02/10/17 19:00 Nasal Cannula 3.00 02/10/17 18:30 98.2 107 20 158/96 (116) 92 02/10/17 16:00 Nasal Cannula 2.00 02/10/17 13:30 100 02/10/17 13:06 98.5 101 20 147/91 (109) 93 02/10/17 11:32 96 21 I/O 02/10/17 02/10/17 02/10/17 02/11/17 02/11/17 02/11/17 07:00 15:00 23:00 07:00 15:00 23:00 Intake Total 916 ml 321 ml Balance 916 ml 321 ml IV Total 916 ml 321 ml Result Diagram: 02/10/1704 02/10/178 Imaging Last Impressions Chest X-Ray 02/11/17 0000 Signed Impressions: Service Date/Time: Saturday, February 11, 2017 04:20 - CONCLUSION: No significant interval change in bilateral pulmonary consolidation and left pleural effusion. Yogi Burrell MD Wrist X-Ray 02/07/17 0000 Signed Impressions: Service Date/Time: Tuesday, February 07, 2017 19:02 - CONCLUSION: Osteoarthritic change as described. Zhen Owen MD Aspiration 02/07/17 0000 Signed Impressions: Service Date/Time: Tuesday, February 07, 2017 16:38 - CONCLUSION: Uncomplicated aspiration as above. Ruy Pereira MD Knee MRI 02/06/17 Signed Impressions: Service Date/Time: Monday, February 06, 2017 15:04 - CONCLUSION: 1. Joint effusion and subcutaneous edema. 2. No evidence of internal derangement Ruy Pereira MD Ankle MRI 02/06/17 Signed Impressions: Service Date/Time: Monday, February 06, 2017 15:04 - CONCLUSION: 1. 7 mm cutaneous lesion superficial to the posterior calcaneus without extension into the deep tissues. 2. Probable disruption of the deltoid ligament with associated contusion in the medial talus. 3. Diffuse soft tissue swelling about the ankle in the subcutaneous tissues.. Renato Morales MD Abdomen/Pelvis CT 02/06/17 Signed Impressions: Service Date/Time: Tuesday, February 07, 2017 01:15 - CONCLUSION: Lobular masses involving the left adrenal gland. Further characterization with chemical shift MRI suggested. Right renal cyst. Minimal nonspecific free pelvic fluid. Lung base infiltrates and effusions Rowdy Linder MD Abdomen X-Ray 02/06/17 Signed Impressions: Service Date/Time: Monday, February 06, 2017 14:22 - CONCLUSION: Negative exam with no metallic foreign bodies identified. Zhen Owen MD Lower Extremity Ultrasound 02/04/17 Signed Impressions: Service Date/Time: Saturday, February 04, 2017 14:49 - CONCLUSION: 1. No evidence of deep venous thrombosis. 2. Multiple moderate-sized Ronquillo's cyst. 3. Multiple lymph nodes in the left groin. Zhen Owen MD Objective Remarks GENERAL: sitting up in bed, brething comfortably SKIN: Warm and dry. HEAD: Normocephalic. EYES: No scleral icterus. No injection or drainage. NECK: Supple, trachea midline. No JVD or lymphadenopathy. CARDIOVASCULAR: Regular rate and rhythm without murmurs, gallops, or rubs. RESPIRATORY: Non rebreather on, diffuse rales bilat, also some coarse breath sounds on the right. There is no respiratory distress. There is no increase work of breathing. GASTROINTESTINAL: Abdomen soft, non-tender, nondistended. MUSCULOSKELETAL: No cyanosis, or edema. No calf tenderness. A/P Problem List: (1) COPD exacerbation ICD Code: J44.1 - Chronic obstructive pulmonary disease with (acute) exacerbation (2) Bilateral pulmonary infiltrates on chest x-ray ICD Code: R91.8 - Other nonspecific abnormal finding of lung field (3) CHF (congestive heart failure) ICD Code: I50.9 - Heart failure, unspecified (4) Cellulitis of left lower extremity ICD Code: L03.116 - Cellulitis of left lower limb (5) Sepsis affecting skin ICD Code: A41.9 - Sepsis, unspecified organism (6) Left wrist pain ICD Code: M25.532 - Pain in left wrist (7) Hypokalemia ICD Code: E87.6 - Hypokalemia Assessment and Plan In summary: this is a 56-year-old female medical history significant for hypertension and diabetes. She presented to the ER for diffuse lower extremity pain and swelling. Initially she started with a blister on her left heel and this progressed to cellulitis of the foot and ankle. Also reported some left elbow pain from overuse. Patient developed some SOB on 02/08, CXR was concerning for PNA. BNP was also elevated. The patient was placed back on abx for her PNA. Heart failure workup began on 02/10. Overnight on the she developed worsening SOB and was transferred to the ICU. She clinically improved after diuresis and placed on non-rebreather. Cardiac workup was ordered. Sepsis on admission secondary to left lower extremity cellulitis, concern for oligo arthritis. She is status post aspiration of the left knee which was not consistent with septic arthritis. The patient is currently afebrile, blood cultures negative to date. Synovial fluid knee and abscess of wrist with no growth. The patient was previously on vancomycin and Zosyn. This was stopped by infectious disease who did not believe that this will rule out infectious process but rheumatologic. Hypoxia: clinical improvement after lasix. believed her clinical status is in large due to CHF. Strict I&Os. Please obtain CT chest and ECHO today. Will give another dose of lasix this afternoon. Watch closely in ICU. EKG ordered and troponin added to blood in lab. Her clinical picture is pointing to heart failure, but another diagnosis to consider is PE given she is not chemically prophylaxed, is tachycardic, and has hypoxia. I will also order a d-dimer. Hypokalemia: Improved. She has received multiple doses of lasix. Will replete. Macrocytic anemia: Likely related to alcohol abuse. See [facility] protocol. The patient had a EGD with biopsy done on 02 08 for her anemia. Per report 2 cm hiatal hernia noted, class a esophagitis, mild gastritis in the gastric atrium with multiple biopsies obtained, normal duodenal mucosa retroflexion was performed and normal. For now the plan is to await biopsy results may not be ready from 7-10 days, continue PPI, capsule endoscopy as an outpatient if continued drop hemoglobin. Hypertension: Continue lisinopril daily, Vasotec and clonidine when necessary. Diabetes: Sliding scale, diabetic diet. COPD exacerbation: Continue prednisone 20 mg twice a day. Chest x-ray was obtained on 02/08 which showed no bilateral alveolar infiltrates and small to moderate left effusion. ID placed the patient on Cefepime and Azithromy on 02/10. CT chest and thorax ordered as well. Influenza, urine Legionella, urinary pneumococcal and sputum culture obtained. CHF: CXR on 02/08 concerning for CHF, BNF 1348. Anxiety & Insomnia: ativan 0.25 mg q6 prn, restoril for insomnia DVT prophylaxis: Chemical prophylaxis was held due to concern of anemia and concern for GI bleed Discharge Planning Patient currently undergoing workup for shortness of breath. Echo pending. CT chest and thorax also pending. Discharge pending improvement and stabilization of clinical status. Case discussed with Dr. Stacie Bernardo,Yolanda Arora MD Feb 11, 2017 08:13
[2017-02-11] MEDS: DOCUSATE SODIUM 50 MG/SENNA 8.6 MG TAB PO SCH ×2 (08:29→21:00)
[2017-02-11] MEDS: THIAMINE HCL 100 MG TAB PO SCH (08:29)
[2017-02-11] MEDS: LISINOPRIL 20 MG TAB PO SCH (08:29)
[2017-02-11] MEDS: PANTOPRAZOLE SOD 40 MG DELAYED RELEASE TAB PO SCH (08:29)
[2017-02-11] MEDS: SODIUM CHLORIDE 0.9% FLUSH 10 ML FLUSH IV FLUSH SCH ×2 (08:30→21:53)
[2017-02-11] MEDS: AZITHROMYCIN INJ 500 MG in SODIUM CHLOR 0.9% 250 ML INJ 250 ML IV SCH (08:31)
[2017-02-11] MEDS: LORazepam 0.5 MG TAB PO PRN (08:31)
[2017-02-11] MEDS: REMOVE OLD PATCH T-DERMAL SCH (08:33)
[2017-02-11] MEDS: NICOTINE 21 MG/24 HR PATCH T-DERMAL SCH (08:34)
--- NOTE | 2017-02-11 08:57 | HHI.GIFU ---
Subjective Remarks Followup visit for anemia. Patient resting in bed. Patient was transferred to ICU overnight due to worsening shortness of breath. ABG noted lactic acidosis. Patient is currently on a non rebreather. (Sierra May) Objective Vitals I&O Vital Signs Date Time Temp Pulse Resp B/P (MAP) Pulse Ox O2 Delivery O2 Flow Rate FiO2 02/11/17 08:00 98.5 103 30 157/74 (101) 100 02/11/17 04:00 98.0 126 22 166/99 (121) 95 02/11/17 00:00 97.6 113 18 173/98 (123) 92 02/10/17 20:55 94 Nasal Cannula 3.00 02/10/17 20:00 98.1 109 16 125/78 (94) 95 02/10/17 19:00 Nasal Cannula 3.00 02/10/17 18:30 98.2 107 20 158/96 (116) 92 02/10/17 16:00 Nasal Cannula 2.00 02/10/17 13:30 100 02/10/17 13:06 98.5 101 20 147/91 (109) 93 02/10/17 11:32 96 21 I/O 02/10/17 02/10/17 02/10/17 02/11/17 02/11/17 02/11/17 07:00 15:00 23:00 07:00 15:00 23:00 Intake Total 916 ml 321 ml Balance 916 ml 321 ml IV Total 916 ml 321 ml Laboratory Laboratory Tests Test 02/10/17 21:28 02/11/17 06:03 Potassium Level 3.2 Blood Gas Puncture Site RT RADIAL Blood Gas Patient Temperature 98.6 Blood Gas HCO3 21 Blood Gas Base Excess -3.1 Blood Gas Oxygen Saturation 84 Arterial Blood pH 7.37 Arterial Blood Partial Pressure CO2 38 Arterial Blood Partial Pressure O2 59 Arterial Blood Oxygen Content 12.4 Arterial Blood Carboxyhemoglobin 1.3 Arterial Blood Methemoglobin 0.6 Blood Gas Hemoglobin 10.5 Oxygen Delivery Device SM Blood Gas Liter Flow 10 Date/Time Source Procedure Growth Status 02/04/17 14:49 Blood Peripheral Aerobic Blood Culture - Final NO GROWTH IN 5 DAYS Complete 02/04/17 14:49 Blood Peripheral Anaerobic Blood Culture - Final NO GROWTH IN 5 DAYS Complete 02/07/17 16:50 Fluid Synovial Fluid Gram Stain - Final Complete 02/07/17 16:50 Fluid Synovial Fluid Body Fluid Culture - Final NO GROWTH IN 72 HRS.--AEROBICALLY OR ... Complete 02/08/17 14:00 Abscess Wrist Gram Stain - Final Resulted 02/08/17 14:00 Abscess Wrist Wound Culture - Preliminary NO GROWTH IN 48 HOURS. Resulted Imaging Last Impressions Chest X-Ray 02/11/17 Signed Impressions: Service Date/Time: Saturday, February 11, 2017 04:20 - CONCLUSION: No significant interval change in bilateral pulmonary consolidation and left pleural effusion. Yogi Burrell MD Wrist X-Ray 02/07/17 Signed Impressions: Service Date/Time: Tuesday, February 07, 2017 19:02 - CONCLUSION: Osteoarthritic change as described. Zhen Owen MD Aspiration 02/07/17 Signed Impressions: Service Date/Time: Tuesday, February 07, 2017 16:38 - CONCLUSION: Uncomplicated aspiration as above. Ruy Pereira MD Knee MRI 02/06/17 Signed Impressions: Service Date/Time: Monday, February 06, 2017 15:04 - CONCLUSION: 1. Joint effusion and subcutaneous edema. 2. No evidence of internal derangement Ruy Pereira MD Ankle MRI 02/06/17 Signed Impressions: Service Date/Time: Monday, February 06, 2017 15:04 - CONCLUSION: 1. 7 mm cutaneous lesion superficial to the posterior calcaneus without extension into the deep tissues. 2. Probable disruption of the deltoid ligament with associated contusion in the medial talus. 3. Diffuse soft tissue swelling about the ankle in the subcutaneous tissues.. Renato Morales MD Abdomen/Pelvis CT 02/06/17 Signed Impressions: Service Date/Time: Tuesday, February 07, 2017 01:15 - CONCLUSION: Lobular masses involving the left adrenal gland. Further characterization with chemical shift MRI suggested. Right renal cyst. Minimal nonspecific free pelvic fluid. Lung base infiltrates and effusions Rowdy Linder MD Abdomen X-Ray 02/06/17 Signed Impressions: Service Date/Time: Monday, February 06, 2017 14:22 - CONCLUSION: Negative exam with no metallic foreign bodies identified. Zhen Owen MD Lower Extremity Ultrasound 10/29/17 0000 Signed Impressions: Service Date/Time: Saturday, February 04, 2017 14:49 - CONCLUSION: 1. No evidence of deep venous thrombosis. 2. Multiple moderate-sized Ronquillo's cyst. 3. Multiple lymph nodes in the left groin. Zhen Owen MD Physical Exam HEENT: Normocephalic; atraumatic; no jaundice. CHEST: Non rebreather in place. Diffuse bilateral rales. CARDIAC: RRR ABDOMEN: Soft, nondistended, nontender; no hepatosplenomegaly; bowel sounds are present in all four quadrants. EXTREMITIES: No edema noted. SKIN: Normal; no rash; no jaundice. TECHNICAL SALES DIRECTOR: No focal deficits; alert and oriented times three. (Sierra May) Assessment and Plan Plan ASSESSMENT: - BREE. HH on admission .33.2. HH has been trending down. No obvious blood loss. She has been taking 6 Advil per day at home for her leg pain along with 2 ETOH drinks per day, but denies any obvious blood loss. She states that she had a normal colonoscopy 2 years ago, normal per patient. She also states that she had a procedure to look at her pancreas because her mother from pancreatic cancer. Last colonoscopy and possible EUS/EGD was done by Dr. Yayo Carson in [facility]. CT Scan abdomen and pelvis without IV Contrast (02/06/17)--Lobular masses involving the left adrenal gland. Further characterization with chemical shift MRI suggested. Right renal cyst. Minimal nonspecific free pelvic fluid. Lung base infiltrates and effusions. EGD ()--Class A esophagitis, 2 cm hiatal hernia, mild gastritis in gastric antrum with multiple biopsies obtained, normal duodenal mucosa retroflexion was performed and normal. HH 7.6 (02/10). - Diarrhea. C/O 2 day hx of diarrhea. Improved. Stool studies not sent. - Cellulitis LLE, Left elbow swelling with leukocytosis, elevated CRP, sed rate. Per attending. - Adrenal masses on left. MRI recommended. Defer to attending. - Hypokalemia, hypertension, per attending. K+ 3.2. PLAN: - Await biopsy results - Continue PPI - Obtain records from Dr. Yayo Carson in [place] (EGD/EUS/Colonoscopy) 2 years ago - Capsule Endoscopy as outpatient if HH continues to be low - Monitor HH. Transfuse as necessary - Abx per attending. Patient seen and examined by Dr. Kaur and myself and this note is written on her behalf (Sierra May) Physician Comments Agree with the plan as above. Further recommendations to follow. (Tesfaye Kaur MD) Sierra May Feb 11, 2017 08:56 Tesfaye Kaur MD Feb 11, 2017 12:58
[2017-02-11] MEDS ORDERED: POTASSIUM CHLORIDE 10 MEQ CONTROLLED RELEASE TAB PO ONE (09:00)
[2017-02-11] MEDS ORDERED: CHLORHEXIDINE GLUCONATE 2 % 1 PACK (2 CLOTHS)(extra cloths) TOPICAL PRN (09:15)
[2017-02-11] MEDS ORDERED: POTASSIUM CHLOR 20 MEQ PREMIX 100 ML IV ONE (11:15)
[2017-02-11] MEDS: CEFEPIME INJ 2,000 MG in SODIUM CHLORIDE 0.9% INJ 100 ML IV SCH ×3 (11:17)
[2017-02-11] MEDS ORDERED: PHARMACY ORDERED LAB ONE ×2 (11:45)
[2017-02-11 11:57] LABS: BLOOD GAS CARBOXYHEMOGLOBIN 1.1 % (0-4); BLOOD GAS HCO3 24 mmol/L (22-26); BLOOD GAS METHEMOGLOBIN 0.9 % (0-2); BLOOD GAS O2 HGB SATURATION 91 % (90-100); BLOOD GAS OXYGEN CONTENT 12.1 Vol % (12.0-20.0); BLOOD GAS PCO2 34 mmHg (38-42); BLOOD GAS PO2 70 mmHg (61-120); BLOOD GAS TOTAL HGB 9.4 G/DL (12.0-16.0); CRITICAL VALUE NO; OXYGEN DEVICE BIPAP; TEMP CORR TO 98.6
[2017-02-11 11:58] LABS: DRAW SITE RT RADIAL; FIO2 40 %; NUMBER OF ARTERIAL PUNCTURES 1; STAT NO; VENT SETTINGS IPAP12EPAP5
[2017-02-11 12:10] LABS: AUTOMATED NEUTROPHIL # 16.8 TH/MM3 (1.8-7.7); BASOPHIL # 0.1 TH/MM3 (0-0.2); BASOPHIL % 0.4 % (0.0-2.0); HEMATOCRIT 26.7 % (35.0-46.0); HEMO FLAGS DIFF FINAL; LYMPH % 4.2 % (9.0-44.0); LYMPHOCYTE # 0.8 TH/MM3 (1.0-4.8); MEAN CELL VOLUME 108.2 FL (80.0-100.0); MEAN CORPUSCULAR HEMOGLOBIN 35.3 PG (27.0-34.0); MEAN CORPUSCULAR HGB CONC 32.6 % (32.0-36.0); NEUT % 91.4 % (16.0-70.0); PLATELET COUNT 543 TH/MM3 (150-450); RED BLOOD COUNT 2.46 MIL/MM3 (4.00-5.30); RED CELL DISTRIBUTION WIDTH 15.2 % (11.6-17.2); WHITE BLOOD COUNT 18.4 TH/MM3 (4.0-11.0)
--- NOTE | 2017-02-11 12:12 | EKG ---
Date Performed: 02/11/2017 Time Performed: 09:33:08 PTAGE: 56 years EKG: SINUS TACHYCARDIA LOW QRS VOLTAGE IN PRECORDIAL LEADS ABNORMAL R WAVE PROGRESSION ABNORMAL RHYTHM ECG PREVIOUS TRACING : 02/08/2017 08.19 No change from previous tracing noted. DOCTOR: Roc Donahue Interpretating Date/Time 02/11/2017 12:11:20
[2017-02-11 12:35] LABS: BICARBONATE 24.7 MEQ/L (21.0-32.0); POTASSIUM 3.9 MEQ/L (3.5-5.1)
[2017-02-11] MEDS ORDERED: IOHEXOL 350 MG/ML 10 ML VIAL (for RAD DIAG) IVCONTRAST ONE (16:34)
--- NOTE | 2017-02-11 16:57 | RADRPT ---
EXAM DATE/TIME: 02/11/2017 16:27 [place] COMPARISON: CT ABDOMEN & PELVIS W/O CONTRAST, February 07, 2017, 1:15. INDICATIONS : Shortness of breath. IV CONTRAST: 100 cc Omnipaque 350 (iohexol) IV RADIATION DOSE: 23.10 CTDIvol (mGy) MEDICAL HISTORY : Hypertension. SURGICAL HISTORY : None. ENCOUNTER: Initial ACUITY: 1 day PAIN SCALE: 0/10 LOCATION: Bilateral chest TECHNIQUE: Volumetric scanning of the chest was performed using a pulmonary embolism protocol MIP images were re constructed. Using automated exposure control and adjustment of the mA and/or kV according to patien t size, radiation dose was kept as low as reasonably achievable to obtain optimal diagnostic quality images. DICOM format image data is available electronically for review and comparison. Follow-up recommendations for detected pulmonary nodules are based at a minimum on nodule size and pa tient risk factors according to Fleischner Society Guidelines. FINDINGS: There is no pulmonary embolus. Patchy but very wide spread, variable density areas of airspace consolidation are seen of both l ungs, mid and upper lung predominant. Some of the areas are confluent up to 3.2 cm in size. There are associated air bronchograms. Moderate right and small left pleural effusions are present. There is subcarinal lymphadenopathy measuring approximately 2.1 x 3.4 cm. CONCLUSION: 1. Extensive bilateral airspace disease, presumably infectious or inflammatory. 2. Moderate right and small left pleural effusions. 3. The pulmonary consolidation and pleural effusions appear larger than what can be seen on the lukas rison CT of the abdomen a few days ago. 4. Nonspecific subcarinal lymphadenopathy. 5. No pulmonary embolus. Rowdy Reyes MD on February 11, 2017 at 16:51 Board Certified Radiologist. This report was verified electronically.
--- NOTE | 2017-02-11 17:24 | ECHRPT ---
Indication: chf CONCLUSIONS The left ventricular systolic function is hoipbhwy-rj-rvkylex reduced with an estimated ejection fra ction in the range of 35-40%. Wall thickness is measured at the upper limits of normal. Mild mitral valve regurgitation. There is mild tricuspid valve regurgitation. BP: / HR: Rhythm: MEASUREMENTS (Male / Female) Normal Values Technical Quality:Fair 2D ECHO LV Diastolic Diameter PLAX 3.8 cm 4.2 - 5.9 / 3.9 - 5.3 cm LV Systolic Diameter PLAX 3.2 cm IVS Diastolic Thickness 1.2 cm 0.6 - 1.0 / 0.6 - 0.9 cm LVPW Diastolic Thickness 1.1 cm 0.6 - 1.0 / 0.6 - 0.9 cm LV Relative Wall Thickness 0.6 RV Internal Dim ED PLAX 2.3 cm M-MODE Aortic Root Diameter MM 3.0 cm LA Systolic Diameter MM 3.3 cm LA Ao Ratio MM 1.1 AV Cusp Separation MM 1.7 cm DOPPLER LV E' Lateral Velocity 7.1 cm/s LV E' Septal Velocity 5.6 cm/s TR Peak Velocity 300.0 cm/s TR Peak Gradient 36.0 mmHg Right Atrial Pressure 10.0 mmHg Pulmonary Artery Systolic Pressu 46.0 mmHg Right Ventricular Systolic Press 46.0 mmHg FINDINGS LEFT VENTRICLE The left ventricular systolic function is lrfvwdzd-or-hvyevfy reduced with an estimated ejection fra ction in the range of 35-40%. Normal left ventricular size. Wall thickness is measured at the upper limits of normal. RIGHT VENTRICLE Normal right ventricular size and systolic function. LEFT ATRIUM The left atrial size is normal. RIGHT ATRIUM The right atrial size is normal. ATRIAL SEPTUM Normal atrial septal thickness. AORTA The aortic root and proximal ascending aorta are not well visualized. MITRAL VALVE Mild mitral valve regurgitation. Structurally normal mitral valve. AORTIC VALVE Trileaflet aortic valve. No aortic valve regurgitation. No aortic valve stenosis. TRICUSPID VALVE There is mild tricuspid valve regurgitation. Structurally normal tricuspid valve. The estimated pulmonary arterial pressure is 46 mmHg. PULMONARY VALVE The pulmonary valve is not well visualized. PERICARDIUM No pericardial effusion. Sunny Marques DO (Electronically Signed) Final Date:11 February 2017 17:23
--- NOTE | 2017-02-11 17:59 | HHI.IDPN ---
Subjective Subjective Remarks events noted Pt was transferred to ICU last nigth after developping acute resp distress Required BIPAP Breathing dramatically improved after diuresis No fever Antibiotics azithro cefepime Allergies: Coded Allergies: procaine (Verified Allergy, Unknown, 02/04/17) Objective . Vital Signs Date Time Temp Pulse Resp B/P (MAP) Pulse Ox O2 Delivery O2 Flow Rate FiO2 02/11/17 16:00 98.2 99 30 138/87 (104) 98 02/11/17 14:28 95 Nasal Cannula 5.00 02/11/17 12:00 92 02/11/17 12:00 98.4 92 30 148/84 (105) 96 02/11/17 11:35 96 40 02/11/17 10:00 92 02/11/17 08:37 98 40 02/11/17 08:00 98.5 103 30 157/74 (101) 100 02/11/17 08:00 105 02/11/17 04:00 98.0 126 22 166/99 (121) 95 02/11/17 00:00 97.6 113 18 173/98 (123) 92 02/10/17 20:55 94 Nasal Cannula 3.00 02/10/17 20:00 98.1 109 16 125/78 (94) 95 02/10/17 19:00 Nasal Cannula 3.00 02/10/17 18:30 98.2 107 20 158/96 (116) 92 02/11/17 02/11/17 02/12/17 15:00 23:00 07:00 Output Total 1000 ml Balance -1000 ml Output Urine Total 1000 ml . Laboratory Tests Test 02/10/17 07:04 02/11/17 11:43 White Blood Count 11.9 TH/MM3 18.4 TH/MM3 Red Blood Count 2.12 MIL/MM3 2.46 MIL/MM3 Hemoglobin 7.6 GM/DL 8.7 GM/DL Hematocrit 23.0 % 26.7 % Mean Corpuscular Volume 108.5 FL 108.2 FL Mean Corpuscular Hemoglobin 36.1 PG 35.3 PG Mean Corpuscular Hemoglobin Concent 33.3 % 32.6 % Red Cell Distribution Width 15.1 % 15.2 % Platelet Count 459 TH/MM3 543 TH/MM3 Mean Platelet Volume 8.4 FL 7.9 FL Neutrophils (%) (Auto) 86.3 % 91.4 % Lymphocytes (%) (Auto) 6.4 % 4.2 % Monocytes (%) (Auto) 7.0 % 4.0 % Eosinophils (%) (Auto) 0.0 % 0.0 % Basophils (%) (Auto) 0.3 % 0.4 % Neutrophils # (Auto) 10.2 TH/MM3 16.8 TH/MM3 Lymphocytes # (Auto) 0.8 TH/MM3 0.8 TH/MM3 Monocytes # (Auto) 0.8 TH/MM3 0.7 TH/MM3 Eosinophils # (Auto) 0.0 TH/MM3 0.0 TH/MM3 Basophils # (Auto) 0.0 TH/MM3 0.1 TH/MM3 CBC Comment DIFF FINAL DIFF FINAL Differential Comment Laboratory Tests Test 02/10/17 07:04 02/10/17 21:28 02/11/17 11:43 Blood Urea Nitrogen 17 MG/DL 20 MG/DL Creatinine 1.22 MG/DL 1.14 MG/DL Random Glucose 165 MG/DL 145 MG/DL Calcium Level 8.4 MG/DL 9.0 MG/DL Sodium Level 144 MEQ/L 144 MEQ/L Potassium Level 2.7 MEQ/L 3.2 MEQ/L 3.9 MEQ/L Chloride Level 109 MEQ/L 107 MEQ/L Carbon Dioxide Level 20.2 MEQ/L 24.7 MEQ/L Anion Gap 15 MEQ/L 12 MEQ/L Estimat Glomerular Filtration Rate 46 ML/MIN 49 ML/MIN B-Type Natriuretic Peptide 1348 PG/ML Troponin I 0.03 NG/ML Imaging Last Impressions Chest X-Ray 02/11/17 0000 Signed Impressions: Service Date/Time: Saturday, February 11, 2017 04:20 - CONCLUSION: No significant interval change in bilateral pulmonary consolidation and left pleural effusion. Yogi Burrell MD CT Angiography 02/11/17 0000 Signed Impressions: Service Date/Time: Saturday, February 11, 2017 16:27 - CONCLUSION: 1. Extensive bilateral airspace disease, presumably infectious or inflammatory. 2. Moderate right and small left pleural effusions. 3. The pulmonary consolidation and pleural effusions appear larger than what can be seen on the comparison CT of the abdomen a few days ago. 4. Nonspecific subcarinal lymphadenopathy. 5. No pulmonary embolus. Rowdy Reyes MD Wrist X-Ray 11/1/17 0000 Signed Impressions: Service Date/Time: Tuesday, February 07, 2017 19:02 - CONCLUSION: Osteoarthritic change as described. Zhen Owen MD Aspiration 02/07/17 Signed Impressions: Service Date/Time: Tuesday, February 07, 2017 16:38 - CONCLUSION: Uncomplicated aspiration as above. Ruy Pereira MD Knee MRI 02/06/17 Signed Impressions: Service Date/Time: Monday, February 06, 2017 15:04 - CONCLUSION: 1. Joint effusion and subcutaneous edema. 2. No evidence of internal derangement Ruy Pereira MD Ankle MRI 02/06/17 Signed Impressions: Service Date/Time: Monday, February 06, 2017 15:04 - CONCLUSION: 1. 7 mm cutaneous lesion superficial to the posterior calcaneus without extension into the deep tissues. 2. Probable disruption of the deltoid ligament with associated contusion in the medial talus. 3. Diffuse soft tissue swelling about the ankle in the subcutaneous tissues.. Renato Morales MD Abdomen/Pelvis CT 02/06/17 Signed Impressions: Service Date/Time: Tuesday, February 07, 2017 01:15 - CONCLUSION: Lobular masses involving the left adrenal gland. Further characterization with chemical shift MRI suggested. Right renal cyst. Minimal nonspecific free pelvic fluid. Lung base infiltrates and effusions Rowdy Linder MD Abdomen X-Ray 02/06/17 Signed Impressions: Service Date/Time: Monday, February 06, 2017 14:22 - CONCLUSION: Negative exam with no metallic foreign bodies identified. Zhen Owen MD Lower Extremity Ultrasound 02/04/17 Signed Impressions: Service Date/Time: Saturday, February 04, 2017 14:49 - CONCLUSION: 1. No evidence of deep venous thrombosis. 2. Multiple moderate-sized Ronquillo's cyst. 3. Multiple lymph nodes in the left groin. Zhen Owen MD Physical Exam CONSTITUTIONAL/GENERAL: This is an adequately nourished patient, in no apparent distress. TUBES/LINES/DRAINS: SKIN: No jaundice, rashes, or lesions. Skin temperature appropriate. Not diaphoretic. EYES: Pupils equal and round and reactive. Extraocular motions intact. No scleral icterus. No injection or drainage. Fundi not examined. CARDIOVASCULAR: Regular rate and rhythm without murmurs, gallops, or rubs. No JVD. Peripheral pulses symmetric. RESPIRATORY/CHEST: Symmetric, unlabored respirations. B/l crackles more prominet on L to auscultation. Breath sounds equal bilaterally. GASTROINTESTINAL: Abdomen soft, non-tender, nondistended. No hepato-splenomegaly , or palpable masses. No guarding. Bowel sounds present. MUSCULOSKELETAL: Extremities without clubbing, cyanosis, Minimal 1 L foot edema. + joint tenderness and effusion noted in multiple joints: L wrist full ROM L knee and L ankle swelling resolved No calf tenderness. No mottling or clubbing. L heel with smqall dry helaing wound NEUROLOGICAL: Awake and alert. Motor and sensory grossly within normal limits. Follows commands. Clear speech Moves all extremities. PSYCHIATRIC: pleasant and cooperative Assessment & Plan Remarks Febrile illness with oligoarthrits: differentila dx include septic arthrits ( unusual to present simultaneously in multiple joints unless metastatic infection ) vs CTD - negative clx fluid cell count and diff not cw septic arthritis disruption of the deltoid ligament with associated contusion in the medial talus Fever : resolved Suspected PNA CTA negative for PE, but showed extensive bilateral airspace disease, presumably infectious or inflammatory and moderate right and small left pleural effusions. 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
[2017-02-11] MEDS: POTASSIUM CHLORIDE 20 MEQ CONTROLLED RELEASE TAB PO SCH ×2 (18:00→21:54)
[2017-02-11] MEDS ORDERED: FUROSEMIDE 40 MG/4 ML VIAL IV PUSH SCH (18:00)
[2017-02-11] MEDS: FUROSEMIDE 40 MG/4 ML VIAL IV PUSH SCH (18:53)
[2017-02-12] VITALS (15 sets, daily range): BP systolic 105–142; BP diastolic 66–91; PULSE 81–94; RESP 15–20; TEMP 98–98.7; O2SAT 92–96
[2017-02-12] MEDS: CEFEPIME INJ 2,000 MG in SODIUM CHLORIDE 0.9% INJ 100 ML IV SCH ×2 (01:00→15:03)
[2017-02-12] MEDS: oxyCODONE/ACETAMINOPHEN 5 MG/325 MG TAB PO PRN ×3 (02:43→15:03)
[2017-02-12] MEDS: CHLORHEXIDINE GLUCONATE 2 % 1 PACK (2 CLOTHS)(taper/protocol) TOPICAL SCH (04:00)
[2017-02-12] MEDS: metroNIDAZOLE 500 MG TAB PO SCH ×3 (05:32→21:18)
[2017-02-12] MEDS: RESP: ALBUTEROL 2.5 MG/IPRATROPIUM 0.5 MG NEB (SCH) NEB ×4 (05:35→21:13)
[2017-02-12] MEDS: INSULIN ASPART SUPPLEMENTAL SCALE SQ SCH ×4 (08:00→21:00)
--- NOTE | 2017-02-12 08:49 | HHI.PR ---
Subjective Remarks Pt states that she feels a lot better. Still coughing but SOB much improved. No chest pain, n/v Discussed w RN, she had bipap x 2-3 hours last night but now on NC and tolerating it well. no other concerns Objective Vitals Vital Signs Date Time Temp Pulse Resp B/P (MAP) Pulse Ox O2 Delivery O2 Flow Rate FiO2 02/12/17 06:00 86 02/12/17 05:36 94 Nasal Cannula 5.00 02/12/17 04:00 98.6 86 17 126/76 (93) 96 02/12/17 04:00 96 Nasal Cannula 5.00 02/12/17 04:00 85 02/12/17 02:00 91 02/12/17 00:00 96 Bi-Pap 02/12/17 00:00 98.4 89 20 135/75 (95) 96 02/12/17 00:00 89 02/11/17 23:50 95 40 02/11/17 22:06 99 Nasal Cannula 4.00 02/11/17 22:00 101 02/11/17 20:00 94 Nasal Cannula 4.00 02/11/17 20:00 98.4 101 23 153/96 (115) 94 02/11/17 20:00 101 02/11/17 18:00 114 02/11/17 16:00 98.2 99 30 138/87 (104) 98 02/11/17 16:00 96 02/11/17 16:00 96 Nasal Cannula 5.00 02/11/17 14:28 95 Nasal Cannula 5.00 02/11/17 14:00 92 02/11/17 12:00 92 02/11/17 12:00 98.4 92 30 148/84 (105) 96 02/11/17 11:35 96 40 02/11/17 10:00 92 02/11/17 09:00 93 Bi-Pap 40 I/O 02/11/17 02/11/17 02/11/17 02/12/17 02/12/17 02/12/17 07:00 15:00 23:00 07:00 15:00 23:00 Intake Total 350 ml 100 ml 220 ml Output Total 1000 ml 600 ml 1700 ml Balance -650 ml -500 ml -1480 ml IV Total 350 ml 100 ml 220 ml Output Urine Total 1000 ml 600 ml 1700 ml # Bowel Movements 0 Result Diagram: 02/11/17 1143 02/12/17 0552 Imaging Last Impressions Chest X-Ray 02/11/17 0000 Signed Impressions: Service Date/Time: Saturday, February 11, 2017 04:20 - CONCLUSION: No significant interval change in bilateral pulmonary consolidation and left pleural effusion. Yogi Burrell MD CT Angiography 02/11/17 Signed Impressions: Service Date/Time: Saturday, February 11, 2017 16:27 - CONCLUSION: 1. Extensive bilateral airspace disease, presumably infectious or inflammatory. 2. Moderate right and small left pleural effusions. 3. The pulmonary consolidation and pleural effusions appear larger than what can be seen on the comparison CT of the abdomen a few days ago. 4. Nonspecific subcarinal lymphadenopathy. 5. No pulmonary embolus. Rowdy Reyes MD Wrist X-Ray 02/07/17 0000 Signed Impressions: Service Date/Time: Tuesday, February 07, 2017 19:02 - CONCLUSION: Osteoarthritic change as described. Zhen Owen MD Aspiration 02/07/17 Signed Impressions: Service Date/Time: Tuesday, February 07, 2017 16:38 - CONCLUSION: Uncomplicated aspiration as above. Ruy Pereira MD Knee MRI 02/06/17 0000 Signed Impressions: Service Date/Time: Monday, February 06, 2017 15:04 - CONCLUSION: 1. Joint effusion and subcutaneous edema. 2. No evidence of internal derangement Ruy Pereira MD Ankle MRI 02/06/17 Signed Impressions: Service Date/Time: Monday, February 06, 2017 15:04 - CONCLUSION: 1. 7 mm cutaneous lesion superficial to the posterior calcaneus without extension into the deep tissues. 2. Probable disruption of the deltoid ligament with associated contusion in the medial talus. 3. Diffuse soft tissue swelling about the ankle in the subcutaneous tissues.. Renato Morales MD Abdomen/Pelvis CT 02/06/17 Signed Impressions: Service Date/Time: Tuesday, February 07, 2017 01:15 - CONCLUSION: Lobular masses involving the left adrenal gland. Further characterization with chemical shift MRI suggested. Right renal cyst. Minimal nonspecific free pelvic fluid. Lung base infiltrates and effusions Rowdy Linder MD Abdomen X-Ray 02/06/17 Signed Impressions: Service Date/Time: Monday, February 06, 2017 14:22 - CONCLUSION: Negative exam with no metallic foreign bodies identified. Zhen Owen MD Lower Extremity Ultrasound 02/04/17 0000 Signed Impressions: Service Date/Time: Saturday, February 04, 2017 14:49 - CONCLUSION: 1. No evidence of deep venous thrombosis. 2. Multiple moderate-sized Ronquillo's cyst. 3. Multiple lymph nodes in the left groin. Zhen Owen MD Objective Remarks GENERAL: sitting up in bed, breathing comfortably, NC in place. SKIN: Warm and dry. HEAD: Normocephalic. EYES: EOMI NECK: Supple, trachea midline. CARDIOVASCULAR: Regular rate and rhythm without murmurs RESPIRATORY: faint crackles at the bases, no wheezing GASTROINTESTINAL: Abdomen soft, non-tender, nondistended. MUSCULOSKELETAL: No edema. No calf tenderness. A/P Problem List: (1) Sepsis affecting skin ICD Code: A41.9 - Sepsis, unspecified organism (2) Cellulitis of left lower extremity ICD Code: L03.116 - Cellulitis of left lower limb Assessment and Plan In summary: this is a 56-year-old female medical history significant for hypertension and diabetes. She presented to the ER for diffuse lower extremity pain and swelling. Initially she started with a blister on her left heel and this progressed to cellulitis of the foot and ankle. Also reported some left elbow pain from overuse. Patient developed some SOB on 02/08, CXR was concerning for PNA. BNP was also elevated. The patient was placed back on abx for her PNA. Heart failure workup began on 02/10. Overnight on the she developed worsening SOB and was transferred to the ICU. She clinically improved after diuresis and placed on non-rebreather. Cardiac workup was ordered. Sepsis on admission secondary to left lower extremity cellulitis, concern for oligo arthritis. She is status post aspiration of the left knee which was not consistent with septic arthritis. The patient is currently afebrile, blood cultures negative to date. Synovial fluid knee and abscess of wrist with no growth. The patient was previously on vancomycin and Zosyn. CTA negative for PE , but showed extensive bilateral airspace disease, presumably infectious or inflammatory and moderate right and small left pleural effusions. Now on cefepime/azithro/flagyl. Hypoxia: secondary to PNA and CHF. much improved. Strict I&Os. on lasix 40mg IV q12hrs. Trop 0.05. Acute CHF: EF 35-40%. lasix IV 40mg q12hrs, fluid restriction 1500ml/day, low sodium diet. cards consult in place. official report not yet available. Hypokalemia: resolved. recheck in AM Macrocytic anemia: Likely related to alcohol abuse. See [place] protocol. The patient had a EGD with biopsy done on 02/08 for her anemia. Per report 2 cm hiatal hernia noted, class a esophagitis, mild gastritis in the gastric atrium with multiple biopsies obtained, normal duodenal mucosa retroflexion was performed and normal. For now the plan is to await biopsy results, continue PPI , capsule endoscopy as an outpatient if continued drop hemoglobin. Hypertension: Continue lisinopril daily, Vasotec and clonidine when necessary. Diabetes: Sliding scale, diabetic diet. COPD exacerbation: Continue prednisone 20 mg twice a day. ID placed the patient on Cefepime and Azithromy on 02/10. Influenza, urine Legionella, urinary pneumococcal and sputum culture obtained. Anxiety & Insomnia: ativan 0.25 mg q6 prn, restoril for insomnia DVT prophylaxis: Chemical prophylaxis was held due to concern of anemia and concern for GI bleed Discharge Planning continue to monitor closely, consider transfer to [facility] in [place] Hernandez MD Feb 12, 2017 08:49
[2017-02-12] MEDS: DOCUSATE SODIUM 50 MG/SENNA 8.6 MG TAB PO SCH ×2 (08:59→21:00)
[2017-02-12] MEDS: PANTOPRAZOLE SOD 40 MG DELAYED RELEASE TAB PO SCH (09:00)
[2017-02-12] MEDS: AZITHROMYCIN INJ 500 MG in SODIUM CHLOR 0.9% 250 ML INJ 250 ML IV SCH (09:00)
[2017-02-12] MEDS: FUROSEMIDE 40 MG/4 ML VIAL IV PUSH SCH ×2 (09:00→17:17)
[2017-02-12] MEDS: THIAMINE HCL 100 MG TAB PO SCH (09:00)
[2017-02-12] MEDS: LISINOPRIL 20 MG TAB PO SCH (09:00)
[2017-02-12] MEDS: predniSONE 20 MG TAB PO SCH ×2 (09:00→21:16)
[2017-02-12] MEDS: REMOVE OLD PATCH T-DERMAL SCH (09:00)
[2017-02-12] MEDS: SODIUM CHLORIDE 0.9% FLUSH 10 ML FLUSH IV FLUSH SCH ×2 (09:01→21:16)
[2017-02-12] MEDS: NICOTINE 21 MG/24 HR PATCH T-DERMAL SCH (09:02)
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
--- NOTE | 2017-02-12 10:03 | HHI.GIFU ---
Subjective Remarks Resting in bed. No active bleeding. States she is breathing much better today. Denies nausea/vomiting/abdominal pain. (Masha Zavaleta) Objective Vitals I&O Vital Signs Date Time Temp Pulse Resp B/P (MAP) Pulse Ox O2 Delivery O2 Flow Rate FiO2 02/12/17 06:00 86 02/12/17 05:36 94 Nasal Cannula 5.00 02/12/17 04:00 98.6 86 17 126/76 (93) 96 02/12/17 04:00 96 Nasal Cannula 5.00 02/12/17 04:00 85 02/12/17 02:00 91 02/12/17 00:00 96 Bi-Pap 02/12/17 00:00 98.4 89 20 135/75 (95) 96 02/12/17 00:00 89 02/11/17 23:50 95 40 02/11/17 22:06 99 Nasal Cannula 4.00 02/11/17 22:00 101 02/11/17 20:00 94 Nasal Cannula 4.00 02/11/17 20:00 98.4 101 23 153/96 (115) 94 02/11/17 20:00 101 02/11/17 18:00 114 02/11/17 16:00 98.2 99 30 138/87 (104) 98 02/11/17 16:00 96 02/11/17 16:00 96 Nasal Cannula 5.00 02/11/17 14:28 95 Nasal Cannula 5.00 02/11/17 14:00 92 02/11/17 12:00 92 02/11/17 12:00 98.4 92 30 148/84 (105) 96 02/11/17 11:35 96 40 02/11/17 10:00 92 I/O 02/11/17 02/11/17 02/11/17 02/12/17 02/12/17 02/12/17 07:00 15:00 23:00 07:00 15:00 23:00 Intake Total 350 ml 100 ml 220 ml Output Total 1000 ml 600 ml 1700 ml Balance -650 ml -500 ml -1480 ml IV Total 350 ml 100 ml 220 ml Output Urine Total 1000 ml 600 ml 1700 ml # Bowel Movements 0 Laboratory Laboratory Tests Test 02/11/17 11:43 02/11/17 11:47 02/12/17 05:52 White Blood Count 18.4 Red Blood Count 2.46 Hemoglobin 8.7 Hematocrit 26.7 Mean Corpuscular Volume 108.2 Mean Corpuscular Hemoglobin 35.3 Mean Corpuscular Hemoglobin Concent 32.6 Red Cell Distribution Width 15.2 Platelet Count 543 Mean Platelet Volume 7.9 Neutrophils (%) (Auto) 91.4 Lymphocytes (%) (Auto) 4.2 Monocytes (%) (Auto) 4.0 Eosinophils (%) (Auto) 0.0 Basophils (%) (Auto) 0.4 Neutrophils # (Auto) 16.8 Lymphocytes # (Auto) 0.8 Monocytes # (Auto) 0.7 Eosinophils # (Auto) 0.0 Basophils # (Auto) 0.1 CBC Comment DIFF FINAL Differential Comment D-Dimer Quantitative (PE/DVT) 1.24 Blood Urea Nitrogen 20 Creatinine 1.14 1.33 Random Glucose 145 Calcium Level 9.0 Sodium Level 144 Potassium Level 3.9 Chloride Level 107 Carbon Dioxide Level 24.7 Anion Gap 12 Estimat Glomerular Filtration Rate 49 41 Troponin I 0.03 Blood Gas Puncture Site RT RADIAL Blood Gas Patient Temperature 98.6 Blood Gas HCO3 24 Blood Gas Base Excess 0.0 Blood Gas Oxygen Saturation 91 Arterial Blood pH 7.45 Arterial Blood Partial Pressure CO2 34 Arterial Blood Partial Pressure O2 70 Arterial Blood Oxygen Content 12.1 Arterial Blood Carboxyhemoglobin 1.1 Arterial Blood Methemoglobin 0.9 Blood Gas Hemoglobin 9.4 Oxygen Delivery Device BIPAP Blood Gas Ventilator Setting [id number] Blood Gas Inspired Oxygen 40 Date/Time Source Procedure Growth Status 02/04/17 14:49 Blood Peripheral Aerobic Blood Culture - Final NO GROWTH IN 5 DAYS Complete 02/04/17 14:49 Blood Peripheral Anaerobic Blood Culture - Final NO GROWTH IN 5 DAYS Complete 02/07/17 16:50 Fluid Synovial Fluid Gram Stain - Final Complete 02/07/17 16:50 Fluid Synovial Fluid Body Fluid Culture - Final NO GROWTH IN 72 HRS.--AEROBICALLY OR ... Complete 02/08/17 14:00 Abscess Wrist Gram Stain - Final Complete 02/08/17 14:00 Abscess Wrist Wound Culture - Final NO GROWTH IN 72 HRS.--AEROBICALLY OR ... Complete Imaging Last Impressions Chest X-Ray 02/11/17 0000 Signed Impressions: Service Date/Time: Saturday, February 11, 2017 04:20 - CONCLUSION: No significant interval change in bilateral pulmonary consolidation and left pleural effusion. Yogi Burrell MD CT Angiography 02/11/17 Signed Impressions: Service Date/Time: Saturday, February 11, 2017 16:27 - CONCLUSION: 1. Extensive bilateral airspace disease, presumably infectious or inflammatory. 2. Moderate right and small left pleural effusions. 3. The pulmonary consolidation and pleural effusions appear larger than what can be seen on the comparison CT of the abdomen a few days ago. 4. Nonspecific subcarinal lymphadenopathy. 5. No pulmonary embolus. Rowdy Reyes MD Wrist X-Ray 02/07/17 Signed Impressions: Service Date/Time: Tuesday, February 07, 2017 19:02 - CONCLUSION: Osteoarthritic change as described. Zhen Owen MD Aspiration 02/07/17 Signed Impressions: Service Date/Time: Tuesday, February 07, 2017 16:38 - CONCLUSION: Uncomplicated aspiration as above. Ruy Pereira MD Knee MRI 02/06/17 Signed Impressions: Service Date/Time: Monday, February 06, 2017 15:04 - CONCLUSION: 1. Joint effusion and subcutaneous edema. 2. No evidence of internal derangement Ruy Pereira MD Ankle MRI 02/06/17 Signed Impressions: Service Date/Time: Monday, February 06, 2017 15:04 - CONCLUSION: 1. 7 mm cutaneous lesion superficial to the posterior calcaneus without extension into the deep tissues. 2. Probable disruption of the deltoid ligament with associated contusion in the medial talus. 3. Diffuse soft tissue swelling about the ankle in the subcutaneous tissues.. Renato Morales MD Abdomen/Pelvis CT 02/06/17 Signed Impressions: Service Date/Time: Tuesday, February 07, 2017 01:15 - CONCLUSION: Lobular masses involving the left adrenal gland. Further characterization with chemical shift MRI suggested. Right renal cyst. Minimal nonspecific free pelvic fluid. Lung base infiltrates and effusions Rowdy Linder MD Abdomen X-Ray 02/06/17 Signed Impressions: Service Date/Time: Monday, February 06, 2017 14:22 - CONCLUSION: Negative exam with no metallic foreign bodies identified. Zhen Owen MD Lower Extremity Ultrasound 02/04/17 Signed Impressions: Service Date/Time: Saturday, February 04, 2017 14:49 - CONCLUSION: 1. No evidence of deep venous thrombosis. 2. Multiple moderate-sized Ronquillo's cyst. 3. Multiple lymph nodes in the left groin. Zhen Owen MD Physical Exam HEENT: Normocephalic; atraumatic; no jaundice. CHEST: Resp. even/unlabored, Bases diminished. CARDIAC: RRR ABDOMEN: Soft, nondistended, nontender; no hepatosplenomegaly; bowel sounds are present in all four quadrants. EXTREMITIES: Mild edema to left elbow, left ankle. SKIN: Normal; no rash; no jaundice. 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 (Masha Zavaleta [facility]) Assessment and Plan Plan ASSESSMENT: - BREE. HH on admission .33.2. HH has been trending down. No obvious blood loss. She has been taking 6 Advil per day at home for her leg pain along with 2 ETOH drinks per day, but denies any obvious blood loss. She states that she had a normal colonoscopy 2 years ago, normal per patient. She also states that she had a procedure to look at her pancreas because her mother from pancreatic cancer. Last colonoscopy and possible EUS/EGD was done by Dr. Yyao Carson in [facility]- records have been requested, but still pending. CT Scan abdomen and pelvis without IV Contrast (02/06/17)--Lobular masses involving the left adrenal gland. Further characterization with chemical shift MRI suggested. Right renal cyst. Minimal nonspecific free pelvic fluid. Lung base infiltrates and effusions. EGD (02/08/17)--> Class A esophagitis, 2 cm hiatal hernia, mild gastritis in gastric antrum with multiple biopsies obtained, normal duodenal mucosa retroflexion was performed and normal. Pathology non-inflammatory gastric antral mucosal biopsies with focal loss of epithelial mucin and associated regenerative epithelial changes suggestive and a healing erosion, negative for intestinal metaplassia and dysplasia, ana stain negative for H. Pylori. 8.7/26.7. PPI - Diarrhea. C/O 2 day hx of diarrhea. Improved. Stool studies not sent. - Cellulitis LLE, Left elbow swelling with leukocytosis, elevated CRP, sed rate. Per attending. - COPD exacerbation. Steroids, Cefepime, Flagyl, Azithromycin. - Adrenal masses on left. MRI recommended. Defer to attending. - Hypokalemia, hypertension, per attending. PLAN: - KASHIF - Continue PPI - Obtain records from Dr. Yayo Carson in [place] (EGD/EUS/Colonoscopy) 2 years ago - Capsule Endoscopy as outpatient if HH continues to be low - Monitor HH. Transfuse as necessary - Abx per attending. - GI will sign off, please reconsult as needed - Patient seen and examined by Dr. Kaur and myself and this note is written on her behalf (Masha Zavaleta) Physician Comments Agree with the assessment and plan as above. Please notify us if needed. (Tesfaye Kaur MD) Masha Zavaleta Feb 12, 2017 10:03 Tesfaye Kaur MD Feb 12, 2017 10:06
--- NOTE | 2017-02-12 15:01 | PD.CARD.PN ---
Subjective Subjective Remarks No events overnight Feels well, no chest pain, SOB less Objective Medications Current Medications Medications (Trade) Dose Ordered Sig/Halie Route Start Time Stop Time Status Last Admin (Prinivil) 20 mg DAILY PO 02/05/17 09:00 02/12/17 09:00 (Vasotec Inj) 1.25 mg Q6H PRN IV PUSH 02/04/17 17:15 (Catapres) 0.1 mg Q6H PRN PO 02/04/17 17:15 02/08/17 13:17 (Vitamin B1) 100 mg DAILY PO 02/05/17 09:00 02/12/17 09:00 (Ativan Inj) 1 mg Q4H PRN IV PUSH 02/04/17 17:30 (Ativan) 2 mg Q2H PRN PO 02/04/17 17:30 02/08/17 21:24 (Ativan Inj) 2 mg Q2H PRN IV PUSH 02/04/17 17:30 02/11/17 21:55 (Ativan Inj) 2 mg Q1H PRN IV PUSH 02/04/17 17:30 (Ativan Inj) 2 mg Q15M PRN IV PUSH 02/04/17 17:30 (Haldol Inj) 2 mg Q15M PRN IM 02/04/17 17:30 (NS Flush) 2 ml UNSCH PRN IV FLUSH 02/04/17 17:30 (NS Flush) 2 ml BID IV FLUSH 02/04/17 21:00 02/12/17 09:01 (Tylenol) 650 mg Q4H PRN PO 02/04/17 17:30 02/10/17 09:55 (Zofran Inj) 4 mg Q6H PRN IVP 02/04/17 17:30 02/11/17 04:52 (Sharla-Colace) 1 tab BID PO 02/04/17 21:00 02/10/17 21:49 (Milk Of Magnesia Liq) 30 ml Q12H PRN PO 02/04/17 17:30 (Senokot) 17.2 mg Q12H PRN PO 02/04/17 17:30 (Dulcolax Supp) 10 mg DAILY PRN RECTAL 02/04/17 17:30 (Lactulose Liq) 30 ml DAILY PRN PO 02/04/17 17:30 (Habitrol 21 Mg Patch.24 Hr) 1 patch DAILY T-DERMAL 02/05/17 09:00 02/12/17 09:02 Miscellaneous Information 1 DAILY T-DERMAL 02/05/17 09:00 02/12/17 09:00 (D50w (Vial) Inj) 50 ml UNSCH PRN IV PUSH 02/04/17 17:30 (Glucagon Inj) 1 mg UNSCH PRN OTHER 02/04/17 17:30 (NovoLOG SUPPLEMENTAL SCALE) 1 ACHS SLIDING SCALE SQ 02/04/17 21:00 (Heparin Inj) 5,000 units Q12HR SQ 02/04/17 21:00 Future Hold 02/09/17 08:56 (Protonix) 40 mg DAILY PO 02/06/17 11:00 02/12/17 09:00 (Duoneb Neb) 1 ampule Q4HR NEB PRN NEB 02/08/17 15:45 02/11/17 00:19 (Deltasone) 20 mg BID PO 02/08/17 21:00 02/12/17 09:00 Azithromycin 500 mg/Sodium Chloride 250 ml @ 250 mls/hr Q24H IV 02/10/17 09:00 02/12/17 09:00 (Percocet 5-325 Mg) 1 tab Q6H PRN PO 02/10/17 12:00 02/12/17 09:08 Cefepime HCl 2000 mg/Sodium Chloride 100 ml @ 200 mls/hr Q12H IV 02/11/17 00:00 02/12/17 01:00 (Flagyl) 500 mg Q8HR PO 02/10/17 22:00 02/12/17 05:32 (Duoneb Neb) 1 ampule Q6HR NEB NEB 02/11/17 10:00 02/12/17 05:35 (Ativan) 0.5 mg Q8H PRN PO 02/11/17 08:15 02/11/17 08:31 (KCl) 20 meq Q12HR PO 02/11/17 18:00 02/11/17 21:54 Miscellaneous Information Patient in critical care unit? Ass... [id number] .XX 02/11/17 09:15 (Chlorhexidine 2% Cloth) 3 pack DAILY@04 TOPICAL 02/12/17 04:00 02/16/17 04:01 (Chlorhexidine 2% Cloth) 3 pack UNSCH PRN TOPICAL 02/11/17 09:15 02/16/17 09:07 (Lasix Inj) 40 mg BID@,18 IV PUSH 02/11/17 15:00 02/12/17 09:00 Vital Signs / I&O Vital Signs Date Time Temp Pulse Resp B/P (MAP) Pulse Ox O2 Delivery O2 Flow Rate FiO2 02/12/17 06:00 86 02/12/17 05:36 94 Nasal Cannula 5.00 02/12/17 04:00 98.6 86 17 126/76 (93) 96 02/12/17 04:00 96 Nasal Cannula 5.00 02/12/17 04:00 85 02/12/17 02:00 91 02/12/17 00:00 96 Bi-Pap 02/12/17 00:00 98.4 89 20 135/75 (95) 96 02/12/17 00:00 89 02/11/17 23:50 95 40 02/11/17 22:06 99 Nasal Cannula 4.00 02/11/17 22:00 101 02/11/17 20:00 94 Nasal Cannula 4.00 02/11/17 20:00 98.4 101 23 153/96 (115) 94 02/11/17 20:00 101 02/11/17 18:00 114 02/11/17 16:00 98.2 99 30 138/87 (104) 98 02/11/17 16:00 96 02/11/17 16:00 96 Nasal Cannula 5.00 I/O 02/11/17 02/11/17 02/11/17 02/12/17 02/12/17 02/12/17 07:00 15:00 23:00 07:00 15:00 23:00 Intake Total 350 ml 100 ml 220 ml Output Total 1000 ml 600 ml 1700 ml Balance -650 ml -500 ml -1480 ml IV Total 350 ml 100 ml 220 ml Output Urine Total 1000 ml 600 ml 1700 ml # Bowel Movements 0 Physical Exam GENERAL: NAD, AAOx3 SKIN: Warm and dry. HEAD: Atraumatic. Normocephalic. EYES: Pupils equal and round. No scleral icterus. No injection or drainage. ENT: No nasal bleeding or discharge. Mucous membranes pink and moist. NECK: Trachea midline. No JVD. CARDIOVASCULAR: Regular rate and rhythm. RESPIRATORY: No accessory muscle use. Decreased breath sounds bilaterally GASTROINTESTINAL: Abdomen soft, non-tender, nondistended. Hepatic and splenic margins not palpable. MUSCULOSKELETAL: Extremities without clubbing, cyanosis, or edema. No obvious deformities. NEUROLOGICAL: Awake and alert. No obvious cranial nerve deficits. Motor grossly within normal limits. Five out of 5 muscle strength in the arms and legs. Normal speech. PSYCHIATRIC: Appropriate mood and affect; insight and judgment normal. Laboratory Laboratory Tests Test 02/12/17 05:52 Creatinine 1.33 MG/DL Estimat Glomerular Filtration Rate 41 ML/MIN Assessment and Plan Problem List: (1) Tobacco abuse ICD Codes: Z72.0 - Tobacco use (2) Cardiomyopathy ICD Codes: I42.9 - Cardiomyopathy, unspecified (3) CHF (congestive heart failure) ICD Codes: I50.9 - Heart failure, unspecified (4) Bilateral pulmonary infiltrates on chest x-ray ICD Codes: R91.8 - Other nonspecific abnormal finding of lung field Assessment and Plan 1. Acute systolic heart failure/New-onset cardiomyopathy with an ejection fraction of 35-40%. Con't diuresis as possible Watch creatinine, CTA yesterday Eventual heart failure medications 2. Tobacco cessation 3. Plan ischemic evaluation Most likely cardiac catheterization later this week Sunny Marques DO Feb 12, 2017 15:01
[2017-02-12] MEDS: ACETAMINOPHEN 325 MG TAB PO PRN (17:17)
[2017-02-12] MEDS: POTASSIUM CHLORIDE 20 MEQ CONTROLLED RELEASE TAB PO SCH (21:16)
[2017-02-12] MEDS: LORazepam 0.5 MG TAB PO PRN (21:59)
[2017-02-13] VITALS (14 sets, daily range): BP systolic 126–141; BP diastolic 71–89; PULSE 76–82; RESP 12–24; TEMP 98–98.6; O2SAT 94–98
[2017-02-13] MEDS: CEFEPIME INJ 2,000 MG in SODIUM CHLORIDE 0.9% INJ 100 ML IV SCH ×2 (00:15→12:06)
[2017-02-13] MEDS: RESP: ALBUTEROL 2.5 MG/IPRATROPIUM 0.5 MG NEB (SCH) NEB ×4 (03:35→21:59)
[2017-02-13] MEDS: CHLORHEXIDINE GLUCONATE 2 % 1 PACK (2 CLOTHS)(taper/protocol) TOPICAL SCH (04:00)
[2017-02-13] MEDS: oxyCODONE/ACETAMINOPHEN 5 MG/325 MG TAB PO PRN ×2 (04:32→12:05)
[2017-02-13] MEDS: metroNIDAZOLE 500 MG TAB PO SCH ×3 (04:33→20:42)
[2017-02-13 05:46] LABS: AUTOMATED NEUTROPHIL # 11.7 TH/MM3 (1.8-7.7); BASOPHIL % 0.2 % (0.0-2.0); EOSINOPHIL % 0.2 % (0.0-4.0); HEMATOCRIT 26.7 % (35.0-46.0); HEMO FLAGS DIFF FINAL; LYMPH % 5.2 % (9.0-44.0); LYMPHOCYTE # 0.7 TH/MM3 (1.0-4.8); MEAN CELL VOLUME 108.1 FL (80.0-100.0); MEAN CORPUSCULAR HEMOGLOBIN 36.1 PG (27.0-34.0); MEAN CORPUSCULAR HGB CONC 33.4 % (32.0-36.0); MONO % 6.4 % (0.0-8.0); PLATELET COUNT 476 TH/MM3 (150-450); RED BLOOD COUNT 2.47 MIL/MM3 (4.00-5.30); RED CELL DISTRIBUTION WIDTH 15.3 % (11.6-17.2); WHITE BLOOD COUNT 13.2 TH/MM3 (4.0-11.0)
[2017-02-13 06:03] LABS: BICARBONATE 30.1 MEQ/L (21.0-32.0); MAGNESIUM 2.1 MG/DL (1.5-2.5); POTASSIUM 3.5 MEQ/L (3.5-5.1)
[2017-02-13] MEDS: INSULIN ASPART SUPPLEMENTAL SCALE SQ SCH ×4 (08:00→20:43)
[2017-02-13] MEDS: POTASSIUM CHLORIDE 20 MEQ CONTROLLED RELEASE TAB PO SCH ×2 (08:52→20:42)
[2017-02-13] MEDS: REMOVE OLD PATCH T-DERMAL SCH (08:52)
[2017-02-13] MEDS: NICOTINE 21 MG/24 HR PATCH T-DERMAL SCH (08:52)
[2017-02-13] MEDS: PANTOPRAZOLE SOD 40 MG DELAYED RELEASE TAB PO SCH (08:52)
[2017-02-13] MEDS: LISINOPRIL 20 MG TAB PO SCH (08:52)
[2017-02-13] MEDS: THIAMINE HCL 100 MG TAB PO SCH (08:52)
[2017-02-13] MEDS: FUROSEMIDE 40 MG/4 ML VIAL IV PUSH SCH ×2 (08:53→17:25)
[2017-02-13] MEDS: predniSONE 20 MG TAB PO SCH ×2 (08:53→20:42)
[2017-02-13] MEDS: SODIUM CHLORIDE 0.9% FLUSH 10 ML FLUSH IV FLUSH SCH ×2 (08:53→20:43)
[2017-02-13] MEDS: DOCUSATE SODIUM 50 MG/SENNA 8.6 MG TAB PO SCH ×2 (08:54→20:41)
[2017-02-13] MEDS: AZITHROMYCIN INJ 500 MG in SODIUM CHLOR 0.9% 250 ML INJ 250 ML IV SCH (08:54)
--- NOTE | 2017-02-13 09:24 | HHI.PR ---
Subjective Remarks Pt feeling a lot better. Denies any CP,SOB is improved, no nausea or vomiting complains of left foot burning "pins and needles", tells me that the sharp pains have resolved. Discussed w RN, pt's Blood sugars have been a bit elevated Objective Vitals Vital Signs Date Time Temp Pulse Resp B/P (MAP) Pulse Ox O2 Delivery O2 Flow Rate FiO2 02/13/17 06:00 79 02/13/17 04:00 Nasal Cannula 3.00 40 02/13/17 04:00 98.0 79 24 131/81 (98) 97 02/13/17 04:00 79 02/13/17 02:00 76 02/13/17 00:00 Nasal Cannula 3.00 40 02/13/17 00:00 98.2 77 16 131/72 (91) 94 02/13/17 00:00 77 02/12/17 22:00 92 02/12/17 21:11 96 Nasal Cannula 3.00 02/12/17 20:00 Nasal Cannula 3.00 40 02/12/17 20:00 98.1 81 18 118/72 (87) 94 02/12/17 20:00 81 02/12/17 18:00 93 02/12/17 16:23 95 Nasal Cannula 3.00 02/12/17 16:00 95 Nasal Cannula 5.00 02/12/17 16:00 98.7 93 15 142/85 (104) 92 02/12/17 16:00 85 02/12/17 14:00 89 02/12/17 12:00 96 Nasal Cannula 5.00 02/12/17 12:00 88 02/12/17 12:00 98.0 88 18 105/66 (79) 96 02/12/17 10:00 92 I/O 02/12/17 02/12/17 02/12/17 02/13/17 02/13/17 02/13/17 07:00 15:00 23:00 07:00 15:00 23:00 Intake Total 220 ml 250 ml 340 ml 500 ml Output Total 1700 ml 1600 ml 1400 ml Balance -1480 ml 250 ml -1260 ml -900 ml Intake Oral 240 ml 400 ml IV Total 220 ml 250 ml 100 ml 100 ml Output Urine Total 1700 ml 1600 ml 1400 ml Stool Total 0 ml # Bowel Movements 0 0 0 Result Diagram: 02/13/1743002/13/17430 Imaging Last Impressions Chest X-Ray 02/11/17 Signed Impressions: Service Date/Time: Saturday, February 11, 2017 04:20 - CONCLUSION: No significant interval change in bilateral pulmonary consolidation and left pleural effusion. Yogi Burrell MD CT Angiography 02/11/17 Signed Impressions: Service Date/Time: Saturday, February 11, 2017 16:27 - CONCLUSION: 1. Extensive bilateral airspace disease, presumably infectious or inflammatory. 2. Moderate right and small left pleural effusions. 3. The pulmonary consolidation and pleural effusions appear larger than what can be seen on the comparison CT of the abdomen a few days ago. 4. Nonspecific subcarinal lymphadenopathy. 5. No pulmonary embolus. Rowdy Reyes MD Wrist X-Ray 02/07/17 Signed Impressions: Service Date/Time: Tuesday, February 07, 2017 19:02 - CONCLUSION: Osteoarthritic change as described. Zhen Owen MD Aspiration 02/07/17 Signed Impressions: Service Date/Time: Tuesday, February 07, 2017 16:38 - CONCLUSION: Uncomplicated aspiration as above. Ruy Pereira MD Knee MRI 02/06/17 Signed Impressions: Service Date/Time: Monday, February 06, 2017 15:04 - CONCLUSION: 1. Joint effusion and subcutaneous edema. 2. No evidence of internal derangement Ruy Pereira MD Ankle MRI 02/06/17 Signed Impressions: Service Date/Time: Monday, February 06, 2017 15:04 - CONCLUSION: 1. 7 mm cutaneous lesion superficial to the posterior calcaneus without extension into the deep tissues. 2. Probable disruption of the deltoid ligament with associated contusion in the medial talus. 3. Diffuse soft tissue swelling about the ankle in the subcutaneous tissues.. Renato Morales MD Abdomen/Pelvis CT 02/06/17 Signed Impressions: Service Date/Time: Tuesday, February 07, 2017 01:15 - CONCLUSION: Lobular masses involving the left adrenal gland. Further characterization with chemical shift MRI suggested. Right renal cyst. Minimal nonspecific free pelvic fluid. Lung base infiltrates and effusions Rowdy Linder MD Abdomen X-Ray 02/06/17 Signed Impressions: Service Date/Time: Monday, February 06, 2017 14:22 - CONCLUSION: Negative exam with no metallic foreign bodies identified. Zhen Owen MD Lower Extremity Ultrasound 02/04/17 0000 Signed Impressions: Service Date/Time: Saturday, February 04, 2017 14:49 - CONCLUSION: 1. No evidence of deep venous thrombosis. 2. Multiple moderate-sized Ronquillo's cyst. 3. Multiple lymph nodes in the left groin. Zhen Owen MD Objective Remarks GENERAL: sitting up in bed, breathing comfortably, NC in place. SKIN: Warm and dry. EYES: EOMI NECK: Supple, trachea midline. CARDIOVASCULAR: Regular rate and rhythm without murmurs RESPIRATORY: faint crackles at the bases, no wheezing GASTROINTESTINAL: Abdomen soft, non-tender, nondistended. MUSCULOSKELETAL: No edema. No calf tenderness. Neuro: pt does have some decreased sensation on her left foot when I examined her mainly on the medial aspect and plantar aspect below great toe. A/P Problem List: (1) Sepsis affecting skin ICD Code: A41.9 - Sepsis, unspecified organism (2) Cellulitis of left lower extremity ICD Code: L03.116 - Cellulitis of left lower limb Assessment and Plan In summary: this is a 56-year-old female medical history significant for hypertension and diabetes. She presented to the ER for diffuse lower extremity pain and swelling. Initially she started with a blister on her left heel and this progressed to cellulitis of the foot and ankle. Also reported some left elbow pain from overuse. Patient developed some SOB on 02/08, CXR was concerning for PNA. BNP was also elevated. The patient was placed back on abx for her PNA. Heart failure workup began on 02/10. Overnight on the she developed worsening SOB and was transferred to the ICU. She clinically improved after diuresis and placed on non-rebreather. Cardiac workup was ordered. Sepsis on admission secondary to left lower extremity cellulitis, concern for oligo arthritis. She is status post aspiration of the left knee which was not consistent with septic arthritis. The patient is currently afebrile, blood cultures negative to date. Synovial fluid knee and abscess of wrist with no growth. The patient was previously on vancomycin and Zosyn. CTA negative for PE , but showed extensive bilateral airspace disease, presumably infectious or inflammatory and moderate right and small left pleural effusions. Now on cefepime/azithro/flagyl. Hypoxia: secondary to PNA and CHF. much improved. Strict I&Os. on lasix 40mg IV q12hrs. Trop 0.05. Acute CHF: EF 35-40%. lasix IV 40mg q12hrs, fluid restriction 1500ml/day, low sodium diet. cards following, will need ischemic work-up later this week. Hypokalemia: resolved. Macrocytic anemia: Likely related to alcohol abuse. See [facility] protocol. The patient had a EGD with biopsy done on 02/08 for her anemia. Per report 2 cm hiatal hernia noted, class a esophagitis, mild gastritis in the gastric atrium with multiple biopsies obtained, normal duodenal mucosa retroflexion was performed and normal. For now the plan is to await biopsy results, continue PPI , capsule endoscopy as an outpatient if continued drop hemoglobin. GI has signed off. Hypertension: Continue lisinopril daily, Vasotec and clonidine when necessary. Diabetes: Sliding scale, diabetic diet. HbA1C 5.4. BS elevated secondary to steroid use. Neuropathy/foot pain: pt describes her pain as "pins and needles" she does have some decreased sensation. Will start her on gabapentin 100mg po TID and titrate up slowly. COPD exacerbation: Continue prednisone 20 mg twice a day. on Cefepime and Azithromy on 02/10. Influenza, urine Legionella, urinary pneumococcal and sputum culture ordered but not yet available. Anxiety & Insomnia: ativan 0.25 mg q6 prn, restoril for insomnia DVT prophylaxis: Chemical prophylaxis was held due to concern of anemia and concern for GI bleed Discharge Planning transfer to [facility] in AM cardiac catheterization later this week per Kindra Meyer MD Feb 13, 2017 09:24
--- NOTE | 2017-02-13 11:28 | PD.CARD.PN ---
Subjective Subjective Remarks No events overnight Feels well, no chest pain, SOB less Objective Medications Current Medications Medications (Trade) Dose Ordered Sig/Halie Route Start Time Stop Time Status Last Admin (Prinivil) 20 mg DAILY PO 02/05/17 09:00 02/13/17 08:52 (Vasotec Inj) 1.25 mg Q6H PRN IV PUSH 02/04/17 17:15 (Catapres) 0.1 mg Q6H PRN PO 02/04/17 17:15 02/08/17 13:17 (Vitamin B1) 100 mg DAILY PO 02/05/17 09:00 02/13/17 08:52 (Ativan Inj) 1 mg Q4H PRN IV PUSH 02/04/17 17:30 (Ativan) 2 mg Q2H PRN PO 02/04/17 17:30 02/08/17 21:24 (Ativan Inj) 2 mg Q2H PRN IV PUSH 02/04/17 17:30 02/11/17 21:55 (Ativan Inj) 2 mg Q1H PRN IV PUSH 02/04/17 17:30 (Ativan Inj) 2 mg Q15M PRN IV PUSH 02/04/17 17:30 (Haldol Inj) 2 mg Q15M PRN IM 02/04/17 17:30 (NS Flush) 2 ml UNSCH PRN IV FLUSH 02/04/17 17:30 (NS Flush) 2 ml BID IV FLUSH 02/04/17 21:00 02/13/17 08:53 (Tylenol) 650 mg Q4H PRN PO 02/04/17 17:30 02/12/17 17:17 (Zofran Inj) 4 mg Q6H PRN IVP 02/04/17 17:30 02/11/17 04:52 (Sharla-Colace) 1 tab BID PO 02/04/17 21:00 02/10/17 21:49 (Milk Of Magnesia Liq) 30 ml Q12H PRN PO 02/04/17 17:30 (Senokot) 17.2 mg Q12H PRN PO 02/04/17 17:30 (Dulcolax Supp) 10 mg DAILY PRN RECTAL 02/04/17 17:30 (Lactulose Liq) 30 ml DAILY PRN PO 02/04/17 17:30 (Habitrol 21 Mg Patch.24 Hr) 1 patch DAILY T-DERMAL 02/05/17 09:00 02/13/17 08:52 Miscellaneous Information 1 DAILY T-DERMAL 02/05/17 09:00 02/13/17 08:52 (D50w (Vial) Inj) 50 ml UNSCH PRN IV PUSH 02/04/17 17:30 (Glucagon Inj) 1 mg UNSCH PRN OTHER 02/04/17 17:30 (NovoLOG SUPPLEMENTAL SCALE) 1 ACHS SLIDING SCALE SQ 02/04/17 21:00 02/12/17 21:00 (Heparin Inj) 5,000 units Q12HR SQ 02/04/17 21:00 Future Hold 02/09/17 08:56 (Protonix) 40 mg DAILY PO 02/06/17 11:00 02/13/17 08:52 (Duoneb Neb) 1 ampule Q4HR NEB PRN NEB 02/08/17 15:45 02/11/17 00:19 (Deltasone) 20 mg BID PO 02/08/17 21:00 02/13/17 08:53 Azithromycin 500 mg/Sodium Chloride 250 ml @ 250 mls/hr Q24H IV 02/10/17 09:00 02/13/17 08:54 (Percocet 5-325 Mg) 1 tab Q6H PRN PO 02/10/17 12:00 02/13/17 04:32 Cefepime HCl 2000 mg/Sodium Chloride 100 ml @ 200 mls/hr Q12H IV 02/11/17 00:00 02/13/17 00:15 (Flagyl) 500 mg Q8HR PO 02/10/17 22:00 02/13/17 04:33 (Duoneb Neb) 1 ampule Q6HR NEB NEB 02/11/17 10:00 02/12/17 21:13 (Ativan) 0.5 mg Q8H PRN PO 02/11/17 08:15 02/12/17 21:59 (KCl) 20 meq Q12HR PO 02/11/17 18:00 02/13/17 08:52 Miscellaneous Information Patient in critical care unit? Ass... [id number] .XX 02/11/17 09:15 (Chlorhexidine 2% Cloth) 3 pack DAILY@04 TOPICAL 02/12/17 04:00 02/16/17 04:01 02/13/17 04:00 (Chlorhexidine 2% Cloth) 3 pack UNSCH PRN TOPICAL 02/11/17 09:15 02/16/17 09:07 (Lasix Inj) 40 mg BID@09,18 IV PUSH 02/11/17 15:00 02/13/17 08:53 (Neurontin) 100 mg TID PO 02/13/17 13:00 Vital Signs / I&O Vital Signs Date Time Temp Pulse Resp B/P (MAP) Pulse Ox O2 Delivery O2 Flow Rate FiO2 02/13/17 10:16 97 Nasal Cannula 2.00 02/13/17 10:00 79 02/13/17 08:00 98.6 79 12 126/71 (89) 96 02/13/17 08:00 96 Nasal Cannula 3.00 02/13/17 08:00 79 02/13/17 06:00 79 02/13/17 04:00 Nasal Cannula 3.00 40 02/13/17 04:00 98.0 79 24 131/81 (98) 97 02/13/17 04:00 79 02/13/17 02:00 76 02/13/17 00:00 Nasal Cannula 3.00 40 02/13/17 00:00 98.2 77 16 131/72 (91) 94 02/13/17 00:00 77 02/12/17 22:00 92 02/12/17 21:11 96 Nasal Cannula 3.00 02/12/17 20:00 Nasal Cannula 3.00 40 02/12/17 20:00 98.1 81 18 118/72 (87) 94 02/12/17 20:00 81 02/12/17 18:00 93 02/12/17 16:23 95 Nasal Cannula 3.00 02/12/17 16:00 95 Nasal Cannula 5.00 02/12/17 16:00 98.7 93 15 142/85 (104) 92 02/12/17 16:00 85 02/12/17 14:00 89 02/12/17 12:00 96 Nasal Cannula 5.00 02/12/17 12:00 88 02/12/17 12:00 98.0 88 18 105/66 (79) 96 I/O 11/6/17 11/6/02/12/17 02/13/17 02/13/17 02/13/17 07:00 15:00 23:00 07:00 15:00 23:00 Intake Total 220 ml 250 ml 340 ml 500 ml Output Total 1700 ml 1600 ml 1400 ml Balance -1480 ml 250 ml -1260 ml -900 ml Intake Oral 240 ml 400 ml IV Total 220 ml 250 ml 100 ml 100 ml Output Urine Total 1700 ml 1600 ml 1400 ml Stool Total 0 ml # Bowel Movements 0 0 0 Physical Exam GENERAL: NAD, AAOx3 SKIN: Warm and dry. HEAD: Atraumatic. Normocephalic. EYES: Pupils equal and round. No scleral icterus. No injection or drainage. ENT: No nasal bleeding or discharge. Mucous membranes pink and moist. NECK: Trachea midline. No JVD. CARDIOVASCULAR: Regular rate and rhythm. RESPIRATORY: No accessory muscle use. Decreased breath sounds bilaterally GASTROINTESTINAL: Abdomen soft, non-tender, nondistended. Hepatic and splenic margins not palpable. MUSCULOSKELETAL: Extremities without clubbing, cyanosis, or edema. No obvious deformities. NEUROLOGICAL: Awake and alert. No obvious cranial nerve deficits. Motor grossly within normal limits. Five out of 5 muscle strength in the arms and legs. Normal speech. PSYCHIATRIC: Appropriate mood and affect; insight and judgment normal. Laboratory Laboratory Tests Test 02/13/17 04:31 White Blood Count 13.2 TH/MM3 Red Blood Count 2.47 MIL/MM3 Hemoglobin 8.9 GM/DL Hematocrit 26.7 % Mean Corpuscular Volume 108.1 FL Mean Corpuscular Hemoglobin 36.1 PG Mean Corpuscular Hemoglobin Concent 33.4 % Red Cell Distribution Width 15.3 % Platelet Count 476 TH/MM3 Mean Platelet Volume 8.8 FL Neutrophils (%) (Auto) 88.0 % Lymphocytes (%) (Auto) 5.2 % Monocytes (%) (Auto) 6.4 % Eosinophils (%) (Auto) 0.2 % Basophils (%) (Auto) 0.2 % Neutrophils # (Auto) 11.7 TH/MM3 Lymphocytes # (Auto) 0.7 TH/MM3 Monocytes # (Auto) 0.8 TH/MM3 Eosinophils # (Auto) 0.0 TH/MM3 Basophils # (Auto) 0.0 TH/MM3 CBC Comment DIFF FINAL Differential Comment Blood Urea Nitrogen 26 MG/DL Creatinine 1.34 MG/DL Random Glucose 184 MG/DL Calcium Level 9.1 MG/DL Magnesium Level 2.1 MG/DL Sodium Level 138 MEQ/L Potassium Level 3.5 MEQ/L Chloride Level 99 MEQ/L Carbon Dioxide Level 30.1 MEQ/L Anion Gap 9 MEQ/L Estimat Glomerular Filtration Rate 41 ML/MIN Assessment and Plan Problem List: (1) Tobacco abuse ICD Codes: Z72.0 - Tobacco use (2) Cardiomyopathy ICD Codes: I42.9 - Cardiomyopathy, unspecified (3) CHF (congestive heart failure) ICD Codes: I50.9 - Heart failure, unspecified (4) Bilateral pulmonary infiltrates on chest x-ray ICD Codes: R91.8 - Other nonspecific abnormal finding of lung field Assessment and Plan 1. Acute systolic heart failure/New-onset cardiomyopathy with an ejection fraction of 35-40%. Con't diuresis as possible Watch creatinine, CTA yesterday Eventual heart failure medications 2. Tobacco cessation 3. Plan ischemic evaluation Plan cardiac cath tomorrow if Creatinine stable Sunny Marques DO Feb 13, 2017 11:28
[2017-02-13] MEDS: GABAPENTIN 100 MG CAP PO SCH ×2 (12:06→17:24)
[2017-02-13] MEDS: ACETAMINOPHEN 325 MG TAB PO PRN (17:25)
[2017-02-13] MEDS: LORazepam 0.5 MG TAB PO PRN (20:41)
[2017-02-14] VITALS (12 sets, daily range): BP systolic 100–138; BP diastolic 58–83; PULSE 74–101; RESP 12–21; TEMP 97.9–98.9; O2SAT 92–98
[2017-02-14] MEDS: CHLORHEXIDINE GLUCONATE 2 % 1 PACK (2 CLOTHS)(taper/protocol) TOPICAL SCH (00:35)
[2017-02-14] MEDS: CEFEPIME INJ 2,000 MG in SODIUM CHLORIDE 0.9% INJ 100 ML IV SCH ×2 (00:35→12:00)
[2017-02-14] MEDS: RESP: ALBUTEROL 2.5 MG/IPRATROPIUM 0.5 MG NEB (SCH) NEB ×3 (03:38→20:43)
[2017-02-14 04:33] LABS: AUTOMATED NEUTROPHIL # 13.4 TH/MM3 (1.8-7.7); BASOPHIL % 0.1 % (0.0-2.0); EOSINOPHIL % 0.1 % (0.0-4.0); HEMATOCRIT 29.4 % (35.0-46.0); HEMO FLAGS DIFF FINAL; LYMPH % 5.6 % (9.0-44.0); LYMPHOCYTE # 0.8 TH/MM3 (1.0-4.8); MEAN CELL VOLUME 106.8 FL (80.0-100.0); MEAN CORPUSCULAR HEMOGLOBIN 36.2 PG (27.0-34.0); MEAN CORPUSCULAR HGB CONC 33.9 % (32.0-36.0); MONO % 5.9 % (0.0-8.0); NEUT % 88.3 % (16.0-70.0); PLATELET COUNT 546 TH/MM3 (150-450); RED BLOOD COUNT 2.76 MIL/MM3 (4.00-5.30); RED CELL DISTRIBUTION WIDTH 15.3 % (11.6-17.2); WHITE BLOOD COUNT 15.2 TH/MM3 (4.0-11.0)
[2017-02-14 04:56] LABS: BICARBONATE 32.2 MEQ/L (21.0-32.0); POTASSIUM 3.8 MEQ/L (3.5-5.1)
[2017-02-14] MEDS: metroNIDAZOLE 500 MG TAB PO SCH ×3 (05:56→21:39)
[2017-02-14] MEDS: INSULIN ASPART SUPPLEMENTAL SCALE SQ SCH ×4 (08:00→21:45)
--- NOTE | 2017-02-14 08:17 | HHI.PR ---
Subjective Remarks Pt feels much better, still has the burning sensation on her foot but states that she would like to give the gabapentin time to work. Going for a cardiac cath later today, doesn't know the time. Nervous about having stents placed if this is needed Objective Vitals Vital Signs Date Time Temp Pulse Resp B/P (MAP) Pulse Ox O2 Delivery O2 Flow Rate FiO2 02/14/17 06:00 82 02/14/17 04:00 97.9 82 16 138/81 (100) 92 02/14/17 04:00 92 Nasal Cannula 3.00 02/14/17 04:00 82 02/14/17 02:00 74 02/14/17 00:00 93 Nasal Cannula 3.00 02/14/17 00:00 76 02/14/17 00:00 98.9 76 18 124/71 (88) 93 02/13/17 22:00 76 02/13/17 21:58 95 Nasal Cannula 2.00 02/13/17 20:00 95 Nasal Cannula 3.00 02/13/17 20:00 78 02/13/17 20:00 98.4 78 22 134/78 (96) 95 02/13/17 18:00 80 02/13/17 16:00 98.3 80 18 141/89 (106) 98 02/13/17 16:00 96 Nasal Cannula 3.00 02/13/17 16:00 80 02/13/17 14:00 81 02/13/17 12:00 82 02/13/17 12:00 98.3 82 13 128/82 (97) 96 02/13/17 12:00 96 Nasal Cannula 3.00 02/13/17 10:16 97 Nasal Cannula 2.00 02/13/17 10:00 79 I/O 02/13/17 02/13/17 02/13/17 02/14/17 02/14/17 02/14/17 07:00 15:00 23:00 07:00 15:00 23:00 Intake Total 500 ml 350 ml 240 ml 440 ml Output Total 1400 ml 2850 ml Balance -900 ml 350 ml -2610 ml 440 ml Intake Oral 400 ml 240 ml 240 ml IV Total 100 ml 350 ml 200 ml Output Urine Total 1400 ml 2850 ml Stool Total 0 ml # Voids 2 # Bowel Movements 0 0 0 Result Diagram: 02/14/17 0329 02/14/17 0329 Imaging Last Impressions Chest X-Ray 02/11/17 Signed Impressions: Service Date/Time: Saturday, February 11, 2017 04:20 - CONCLUSION: No significant interval change in bilateral pulmonary consolidation and left pleural effusion. Yogi Burrell MD CT Angiography 02/11/17 Signed Impressions: Service Date/Time: Saturday, February 11, 2017 16:27 - CONCLUSION: 1. Extensive bilateral airspace disease, presumably infectious or inflammatory. 2. Moderate right and small left pleural effusions. 3. The pulmonary consolidation and pleural effusions appear larger than what can be seen on the comparison CT of the abdomen a few days ago. 4. Nonspecific subcarinal lymphadenopathy. 5. No pulmonary embolus. Rowdy Reyes MD Wrist X-Ray 02/07/17 Signed Impressions: Service Date/Time: Tuesday, February 07, 2017 19:02 - CONCLUSION: Osteoarthritic change as described. Zhen Owen MD Aspiration 02/07/17 Signed Impressions: Service Date/Time: Tuesday, February 07, 2017 16:38 - CONCLUSION: Uncomplicated aspiration as above. Ruy Pereira MD Knee MRI 02/06/17 Signed Impressions: Service Date/Time: Monday, February 06, 2017 15:04 - CONCLUSION: 1. Joint effusion and subcutaneous edema. 2. No evidence of internal derangement Ruy Pereira MD Ankle MRI 02/06/17 Signed Impressions: Service Date/Time: Monday, February 06, 2017 15:04 - CONCLUSION: 1. 7 mm cutaneous lesion superficial to the posterior calcaneus without extension into the deep tissues. 2. Probable disruption of the deltoid ligament with associated contusion in the medial talus. 3. Diffuse soft tissue swelling about the ankle in the subcutaneous tissues.. Renato Morales MD Abdomen/Pelvis CT 02/06/17 Signed Impressions: Service Date/Time: Tuesday, February 07, 2017 01:15 - CONCLUSION: Lobular masses involving the left adrenal gland. Further characterization with chemical shift MRI suggested. Right renal cyst. Minimal nonspecific free pelvic fluid. Lung base infiltrates and effusions Rowdy Linder MD Abdomen X-Ray 02/06/17 Signed Impressions: Service Date/Time: Monday, February 06, 2017 14:22 - CONCLUSION: Negative exam with no metallic foreign bodies identified. Zhen Owen MD Lower Extremity Ultrasound 02/04/17 0000 Signed Impressions: Service Date/Time: Saturday, February 04, 2017 14:49 - CONCLUSION: 1. No evidence of deep venous thrombosis. 2. Multiple moderate-sized Ronquillo's cyst. 3. Multiple lymph nodes in the left groin. Zhen Owen MD Objective Remarks GENERAL: standing next to her bed, breathing comfortably, NC in place. SKIN: Warm and dry. EYES: EOMI NECK: Supple, trachea midline. CARDIOVASCULAR: Regular rate and rhythm without murmurs RESPIRATORY: faint crackles at the bases, no wheezing GASTROINTESTINAL: Abdomen soft, non-tender, nondistended. MUSCULOSKELETAL: No edema. No calf tenderness. ambulating w no difficulty A/P Problem List: (1) Sepsis affecting skin ICD Code: A41.9 - Sepsis, unspecified organism (2) Cellulitis of left lower extremity ICD Code: L03.116 - Cellulitis of left lower limb Assessment and Plan In summary: this is a 56-year-old female medical history significant for hypertension and diabetes. She presented to the ER for diffuse lower extremity pain and swelling. Initially she started with a blister on her left heel and this progressed to cellulitis of the foot and ankle. Also reported some left elbow pain from overuse. Patient developed some SOB on 02/08, CXR was concerning for PNA. BNP was also elevated. The patient was placed back on abx for her PNA. Heart failure workup began on 02/10. Overnight on the she developed worsening SOB and was transferred to the ICU. She clinically improved after diuresis and placed on non-rebreather. Cardiac workup was ordered. Sepsis on admission secondary to left lower extremity cellulitis, concern for oligo arthritis. She is status post aspiration of the left knee which was not consistent with septic arthritis. The patient is currently afebrile, blood cultures negative to date. Synovial fluid knee and abscess of wrist with no growth. The patient was previously on vancomycin and Zosyn. CTA negative for PE , but showed extensive bilateral airspace disease, presumably infectious or inflammatory and moderate right and small left pleural effusions. Now on cefepime/azithro/flagyl. Hypoxia: secondary to PNA and CHF. much improved. Strict I&Os. on lasix 40mg IV q12hrs. Trop 0.03. Acute CHF: EF 35-40%. lasix IV 40mg q12hrs, fluid restriction 1500ml/day, low sodium diet. cards following, scheduled for cardiac cath today. Hypokalemia: resolved. Macrocytic anemia: Likely related to alcohol abuse. See [facility]WA protocol. The patient had a EGD with biopsy done on 02/08 for her anemia. Per report 2 cm hiatal hernia noted, class a esophagitis, mild gastritis in the gastric atrium with multiple biopsies obtained, normal duodenal mucosa retroflexion was performed and normal. For now the plan is to await biopsy results, continue PPI , capsule endoscopy as an outpatient if continued drop hemoglobin. GI has signed off. Hypertension: Continue lisinopril daily, Vasotec and clonidine when necessary. Diabetes: Sliding scale, diabetic diet. HbA1C 5.4. BS elevated secondary to steroid use. Neuropathy/foot pain: pt describes her pain as "pins and needles" she does have some decreased sensation. Will start her on gabapentin 100mg po TID and titrate up slowly. COPD exacerbation: Continue prednisone 20 mg twice a day. on Cefepime and Azithromy on 02/10. Anxiety & Insomnia: ativan 0.25 mg q6 prn, restoril for insomnia DVT prophylaxis: Chemical prophylaxis was held due to concern of anemia and concern for GI bleed Discharge [facility] cardiac catheterization today Kindra Hernandez MD Feb 14, 2017 08:17
[2017-02-14] MEDS: THIAMINE HCL 100 MG TAB PO SCH (08:23)
[2017-02-14] MEDS: GABAPENTIN 100 MG CAP PO SCH ×3 (08:23→17:55)
[2017-02-14] MEDS: PANTOPRAZOLE SOD 40 MG DELAYED RELEASE TAB PO SCH (08:23)
[2017-02-14] MEDS: predniSONE 20 MG TAB PO SCH ×2 (08:23→21:39)
[2017-02-14] MEDS: NICOTINE 21 MG/24 HR PATCH T-DERMAL SCH (08:24)
[2017-02-14] MEDS: POTASSIUM CHLORIDE 20 MEQ CONTROLLED RELEASE TAB PO SCH ×2 (08:24→21:44)
[2017-02-14] MEDS: AZITHROMYCIN INJ 500 MG in SODIUM CHLOR 0.9% 250 ML INJ 250 ML IV SCH (08:24)
[2017-02-14] MEDS: FUROSEMIDE 40 MG/4 ML VIAL IV PUSH SCH ×2 (08:24→17:55)
[2017-02-14] MEDS: DOCUSATE SODIUM 50 MG/SENNA 8.6 MG TAB PO SCH ×2 (08:25→21:39)
[2017-02-14] MEDS: SODIUM CHLORIDE 0.9% FLUSH 10 ML FLUSH IV FLUSH SCH ×2 (08:25→21:40)
[2017-02-14] MEDS: REMOVE OLD PATCH T-DERMAL SCH (08:25)
[2017-02-14] MEDS: LISINOPRIL 20 MG TAB PO SCH (08:25)
[2017-02-14] MEDS ORDERED: NITROGLYCERIN INJ 5 ML ONE (09:34)
[2017-02-14] MEDS ORDERED: HEPARIN-NS/PF INJ 500 ML ONE (09:34)
[2017-02-14] MEDS ORDERED: HEPARIN SODIUM - IV 10,000 UNITS/10 ML VIAL ONE (09:34)
[2017-02-14] MEDS ORDERED: VERAPAMIL HCL 5 MG/2 ML VIAL ONE (09:34)
[2017-02-14] MEDS ORDERED: MIDAZOLAM HCL 2 MG/2 ML VIAL ONE (09:54)
--- NOTE | 2017-02-14 11:19 | CATHPROC ---
[employer] HIS Report Study Information Study Number Admission Scheduled Start Study Start [id number] Feb 04 2017 5:13PM 02/13/2017 Feb 14 2017 9:18AM [facility] Cardiac Catheterization Admit Source Facility Department Emergency department [facility] Physician and Clinical Staff Initial MD Marques, Sunny Smalltalk Developer Maureen Vickers RN Other Hesher, Sharon,CECILIA Recorder Amanda Colvin,RT(R) Scrub Linnea RaymondRT(R) Procedures Performed Procedure Location (Site) Vessel Name Coronary Angiograms LCA Left Coronary Coronary Angiograms RCA Right Coronary Equipment Time Captain Waiter Description Size Mfg Part Number Used/Scraped [id number] 09:21 MUNOZ HARDY SWAN NUSRAT CATHETER FR 7 Used *[id number] TRANSDUCER, TRUWAVE [id number] 09:21 MUNOZ HARDY * Used W/STOCKCOCK *[id number] TRANSDUCER, TRUWAVE [id number] 09:21 MUNOZ HARDY * Used W/STOCKCOCK *[id number] 534-518T *[id number] 534-521T *[id number] 09:21 [employer] INDUSTRIES PACK, CCL CUSTOM * Used *[id number] BAND, RADIAL COMPRESSION TR [id number] 10:58 Fin Quiver MEDICAL 24CM Used SHORT 24 *[id number] 09:50 Fin [employer]iver MEDICAL WIRE, EXCHANGE 260CM 3MMJ 260CM Used *[id number] 09:57 NAMIC MANIFOLD, 4 PORT * Used *[id number] 09:21 NAMIC MANIFOLD, 4 PORT * Used *[id number] 09:21 NYCOMED OMNIPAQUE, 350 MG, 150ML 150ML [id number] Used [id number] 09:21 BELTRE MEDICAL BLANKET,WARM AIR CCL * Used *[id number] SHEATH, FR6 TRANSRADIAL RM*[id number] 09:49 TERUMO MEDICAL FR 6 Used SLENDER 10CM *[id number] SHEATH, FR6 TRANSRADIAL RM*[id number] 09:49 TERUMO MEDICAL FR 6 Used SLENDER 10CM *[id number] 09:21 TERUMO MEDICAL SHEATH, FR7 TERUMO (10CM) FR 7 Used *[id number] History: Current Medications Medication Dosage/Unit Route Frequency Last Date/Time Taken LISINOPRIL LASIX History: Allergies Allergy Reaction procaine History: Risk Factors Family History of Hypertension Dyslipidemia Previous ND Previous Heart Failure Premature CAD Yes No No No Yes Prior Valve Prior PCI Prior CABG Surgery No No No Cerebrovascular Peripheral Artery Chronic Lung On Dialysis Diabetes Disease Disease Disease No No No No No History: Symptoms/Diagnosis Selection Items SOB History: Stress Tests Stress or Imaging Studies Performed No History: Other Current Smoker Method Packs a Day Years Used Pack Years Yes Cigarettes 1 35 35 Labs Hgb (g/dl) Hct (%) WBC (l/cumm) 11.60-17.00 35.00-51.00 4.00-11.00 10.0 29.4 15.2 Glucose (mg/dl) BUN (mg/dl) Creatinine (mg/dl) BUN:Creatinine (1:x) 74.00-106.00 7.00-18.00 0.50-1.30 10.00-20.00 202 30 1.2 25 Na (meq/l) K (meq/l) 136.00-145.00 3.50-5.10 139 3.8 Troponin I (ng/ml) 0.02-0.05 0.03 Medication Medication Total Dose (Bolus/Oral) Medication Total Dosage/Unit 1% XYLOCAINE 60 mL FENTANYL 50 mcg RADIAL COCKTAIL 5 mL (Bolus) Medications (Bolus/Oral) Medication Time Given Dosage/Unit Administered By Reason 1% XYLOCAINE 02/14/2017 10:08:35 AM 20 mL Sunny Marques 20 mL 1% XYLOCAINE given in lab by Sunny Marques in Right Radial via Subcutaneous. FENTANYL 02/14/2017 10:09:42 AM 50 mcg Maureen Vickers 50 mcg FENTANYL given in lab by Maureen Vickers, RN in Left Antecubital via Peripheral IV. Ordered by Sunny Marques. RADIAL COCKTAIL 02/14/2017 10:10:14 AM 5 mL (Bolus) Sunny Marques 5 mL (Bolus) RADIAL COCKTAIL given in lab by Sunny Marques in Right Radial via Radial. Using [S olution Name]. Reason: Ntg 200mcg Verapamil 2.5mg Heparin 2300U. 1% XYLOCAINE 02/14/2017 10:12:58 AM 20 mL Sunny Marques 20 mL 1% XYLOCAINE given in lab by Sunny Marques in Right arm via Subcutaneous. 1% XYLOCAINE 02/14/2017 10:41:36 AM 20 mL Sunny Marques 20 mL 1% XYLOCAINE given in lab by Sunny Marques in Right Groin via Subcutaneous. Medication (Drip) Medication Time Given Dosage/Unit Concentration/Unit Diluent (ml) Solution IV Bolus 02/14/2017 11:04:36 AM 250 mL (Bolus) D5W .45 NaCl 250 mL (Bolus) IV Bolus given in lab by Maureen Vickers RN in Left Antecubital via Peripheral IV. [facility] D5W .45 NaCl. Ordered by Sunny Marques. IV Solutions 02/14/2017 9:29:26 AM 50 mL (IV) NaCl .9 IV Solutions given in lab by Linnea Ferro RN in Left Antecubital via Peripheral IV. Pump/Drip Flow using NaCl .9. Initial Case Assessment Cardiovascular HR Rhythm NIBP Chest Pain 84 SR 147/101 0 Edema Present Skin color Skin Moderate Normal Warm Dry Circulatory - Right Pulses Dorsalis Pedis Femoral Radial 1 1 2 Scale (0,1,2,3,4,d) Circulatory - Left Pulses Dorsalis Pedis Femoral Radial 1 1 Scale (0,1,2,3,4,d) Neurological State Oriented to time-place- Alert Moves all extremities person Respiration - General Respiration Rate SpO2 (%) O2 (lpm) (B/min) 13 98 2 Chronological Log Time Study Chronological Log 9:29:07 Patient arrived via Bed. 9:29:08 Patient Name, D.O.B, / Armband Verified By R.N. 9:29:09 Consent signed by the physician and the patient and verified by the [facility] staff. 9:29:11 Pre-op and post- op instructions given; patient acknowledges understanding of instructions . 9:29:12 Verbal Stimulation=2 Physical Stimulation=2 Airway=2 Respiration=2 TOTAL=8. (0=absent, 1=l imited, 2=present) 9:29:14 Allens test performed on the right radial and ulnar artery. 9:29:16 Patient has been NPO for More than 6Hrs. 9:29:17 Skin Breakdown- redness on buttocks 9:29:20 Patient Warmer Placed on the Table. 9:29:21 Bjorn Prominences Protected 9:29:23 A # 20 IV was noted in the Antecubital (left). Grade = 0 9:29:26 Arrived to lab with nicotine patch on posterior right shoulder. :: IV Solutions given in lab by Linnea Ferro RN in Left Antecubital via Peripheral IV. Pump/ Drip Flow using NaCl .9. 9::26 History and physical on the chart or being dictated. Assessment: Initial Case, HR=84 BPM, Rhythm=SR, ESPC=220/101 mmhg, Chest Pain=0, Edema=Mod, Col or=Normal, Skin = Warm, Dry Right Pulses: Rafael Ped=1, Femoral=1, Radial=2 9:29:27 Left Pulses: Rafael Ped=1, Femoral=1 Neurological: State=Alert, Ox3, YANG Respiration: Resp=13 B/min, SpO2=98 %, O2=2 lpm Vitals capture started with the following parameters, Patient=Adult, Interval=5 min, Initial Pr zvincp=473 mmHg, 9:35:53 Deflation Rate=5 mmHg, Cuff placed on Left Arm 9:36:23 HR=86 bpm, JJGY=204/101 mmhg, SpO2=92.0 %, Resp=10 B/min 9:41:20 HR=84 bpm, SMJX=968/104 mmhg, SpO2=97.0 %, Resp=16 B/min 9:42:32 Reference ECG taken 9:46:21 HR=80 bpm, TXTN=052/104 mmhg, SpO2=96.0 %, Resp=11 B/min 9:49:00 Right Radial and brachial and groin(s) prepped with 2% chlorhexidine, and draped after a 3 m in. waiting time. 9:51:22 HX=400 bpm, SNEH=630/99 mmhg, SpO2=95.0 %, Resp=20 B/min 9:52:00 MD paged 9:56:23 HR=81 bpm, ERVD=220/95 mmhg, SpO2=95.0 %, Resp=15 B/min 9:59:12 Pressure channel 1 zeroed. 10:00:00 MD arrived. 10:01:22 HR=75 bpm, WCZQ=618/96 mmhg, SpO2=95.0 %, Resp=11 B/min 10:06:23 HR=79 bpm, MQXG=691/98 mmhg, SpO2=97 %, Resp=14 B/min Time Out. Correct patient, correct procedure, correct physician, power injector loaded, or not loaded with contrast with 10:07:51 surgical team present. Time Out Concurred by MD and individual staff in procedure. 10:08:33 Case Start 10:08:35 20 mL 1% XYLOCAINE given in lab by Sunny Marques in Right Radial via Subcutaneous. 10:09:24 Access site was Right Radial Artery. 50 mcg FENTANYL given in lab by Maureen Vickers, RN in Left Antecubital via Peripheral IV. Orde red by Jerald, 10:09:42 Sunny Lee. A SHEATH, FR6 TRANSRADIAL SLENDER 10CM FR 6 was advanced into the Radial (right) using the Perc utaneous 10::43 technique. 5 mL (Bolus) RADIAL COCKTAIL given in lab by Sunny Marques in Right Radial via Radial. Us ing [Solution Name]. 10:10:14 Reason: Ntg 200mcg Verapamil 2.5mg Heparin 2300U. 10:11:26 HR=80 bpm, JYWE=309/82 mmhg, SpO2=95.0 %, Resp=20 B/min 10:12:58 20 mL 1% XYLOCAINE given in lab by Sunny Marques in Right arm via Subcutaneous. 10:16:23 HR=30 bpm, YNYA=105/81 mmhg, SpO2=94 %, Resp=10 B/min 10:21:22 HR=61 bpm, OPDB=084/86 mmhg, SpO2=96 %, Resp=13 B/min 10:26:21 HR=62 bpm, WSRZ=738/89 mmhg, SpO2=95 %, Resp=18 B/min 10:31:26 HR=68 bpm, CQXM=095/87 mmhg, SpO2=94 %, Resp=14 B/min 10:33:14 Brachial access via ultrasound aborted. A JR 4.0 INFINITI CATHETER FR 5 was advanced over a wire. OMNIPAQUE, 350 MG, 150ML 150ML was us ed for 10:34:51 injections. Recorded Pressure: LV, HR=70, Condition=Condition 1 10:35:13 (Left Ventricle) LV 137/3/16 Recorded Pressure: LV, Ao, HR=79, Condition=Condition 1 10:35:26 (Left Ventricle) LV 138/3/16, (Aorta) Ao 140/77/103 10:35:57 The RCA was injected and visualized at various angles. OMNIPAQUE, 350 MG, 150ML 150ML used . 10:36:25 HR=65 bpm, GPHX=791/91 mmhg, SpO2=91 %, Resp=14 B/min After removing the current catheter a JL 3.5 INFINITI CATHETER FR 5 was advanced over a WIRE, E XCHANGE 260CM 10:36:48 3MMJ 260CM. 10:38:11 The LCA was injected and visualized at various angles. OMNIPAQUE, 350 MG, 150ML 150ML used . Recorded Pressure: Ao, HR=79, Condition=Condition 1 10:38:34 (Aorta) Ao 132/76/99 10:41:24 HR=76 bpm, NUXY=007/87 mmhg, SpO2=90 %, Resp=14 B/min 10:41:36 20 mL 1% XYLOCAINE given in lab by Sunny Marques in Right Groin via Subcutaneous. 10:46:26 HR=79 bpm, TAZT=712/92 mmhg, SpO2=90 %, Resp=13 B/min 10:47:48 Access site was Right Femoral Vein. 10:47:59 A SHEATH, FR7 TERUMO (10CM) FR 7 was advanced into the Fem Vein (right) using the Percutane ous technique. A SWAN NUSRAT CATHETER FR 7 was advanced over a wire. OMNIPAQUE, 350 MG, 150ML 150ML was used for 10:49:01 injections. Recorded Pressure: PCW, HR=74, Condition=Condition 1 10:50:43 (Pulmonary Capillary Wedge) PCW 10:51:27 HR=72 bpm, OHRD=004/89 mmhg, SpO2=91.0 %, Resp=11 B/min 10:51:55 Saturation: Site=PA (Pulmonary Artery) , O2=52.8 %, Hgb=10 gm/dl, Condition=Condition 1. Us ed in calculation. 10:52:46 Saturation: Site=Ao (Aorta) , O2=86.4 %, Hgb=10 gm/dl, Condition=Condition 1. [facility]. Recorded Pressure: MPA, HR=64, Condition=Condition 1 10:53:04 (Main Pulmonary Artery) MPA 01/01/15 Recorded Pressure: RV, HR=71, Condition=Condition 1 10:54:45 (Right Ventricle) RV Recorded Pressure: RA, HR=60, Condition=Condition 1 10:55:11 (Right Atrium) RA 10:55:24 Nilwood Nusrat Catheter Removed 10:56:01 Case End 10:56:20 Activated Clotting Time Drawn 10:56:26 HR=40 bpm, MVCG=828/87 mmhg, Resp=13 B/min 10:57:53 ACT (Normal Range 90-180) = 160 Radial Compression Device Used. 11 mLs of air placed in BAND, RADIAL COMPRESSION TR SHORT 24 24 CM. Affected 10:58:05 hand ~O2 SATURATION~ % O2 saturation. 11:01:25 HR=78 bpm, CDAR=911/90 mmhg, SpO2=92 %, Resp=17 B/min 11:02:43 Venous sheath removed; pressure applied to access site. 250 mL (Bolus) IV Bolus given in lab by Maureen Vickers RN in Left Antecubital via Peripheral IV. Using D5W .45 NaCl. 11:04:36 Ordered by Sunny Marques 11:06:26 HR=75 bpm, CJWD=721/85 mmhg, SpO2=93 %, Resp=13 B/min 11:11:27 HR=76 bpm, LQEL=998/86 mmhg, SpO2=94 %, Resp=11 B/min 11:16:26 HR=78 bpm, JWTA=250/90 mmhg, SpO2=91 %, Resp=9 B/min 11:16:44 Sterile dressing applied to site 11:16:47 No case complications noted. 11:16:48 Cine recording checked. 11:16:55 Bedside Report will be given. 11:16:58 Contrast Scanned 11:17:00 A Left and Right Heart Cath was performed. 11:20:[facility] End Study - Contrast Media Used In Study Contrast Total Opened (mL) Total Used (mL) Total Wasted (mL) Omnipaque 20 20 0 End Study - Maximum Contrast Load Max Contrast Load (mL) 265.2 End Study - Radiation Exposure Fluoro Time (minutes) 2.2 End Study - Patient Disposition Complications Transferred To Interventional Outcome No Telemetry Bed No attempt made
--- NOTE | 2017-02-14 11:37 | MA ---
cc: SUNNY THOMPSON DO DATE: 02/14/2017 PROCEDURE Left heart catheterization, right heart catheterization, coronary angiogram, ultrasound-guided access. PREPROCEDURE DIAGNOSIS Acute systolic heart failure, new cardiomyopathy. POSTPROCEDURE DIAGNOSIS Nonischemic cardiomyopathy, ejection fraction 35-40%. MEDICATION Fentanyl 50 mcg, heparin 2300 units, verapamil 2.5 mg, nitro 200 mcg. CONTRAST USED 20 cc. FLUORO TIME 2.2 minutes. SEDATION Moderate sedation zero minutes. ESTIMATED BLOOD LOSS 10 cc. PROCEDURAL SUMMARY Betty Sunday is a pleasant 56-year-old female who presented to [facility] and was found to have acute systolic heart failure with a new cardiomyopathy. Because of this she was recommended cardiac catheterization to rule out significant ischemia as a cause. The risks, benefits and alternatives were explained to her and she consented as such. She was brought to the lab and prepped in the usual sterile fashion. The right radial artery was accessed using a modified Seldinger technique and placement of a 5/6 Z[place] Slender sheath. This was easily aspirated and flushed. The right brachial artery was attempted to get access with ultrasound guidance but was unable, most likely due to her significant diuresis over the past few days. A JR4 was advanced over a J-wire to the ascending aorta and across the aortic valve for measurement of left ventricular pressures. This was pulled back across the aortic valve showing no significant gradient of aortic stenosis. The JR4 was used for selective angiography of the right coronary artery. This was exchanged out for a JL 3.5 which was used for selective angiography of the left coronary artery. The JL 3.5 was removed over a J-wire. The right femoral vein was accessed using a modified Seldinger technique with ultrasound guidance and placement of a 7 Zambian sheath. This was easily aspirated and flushed. A Carney-Brianna catheter was advanced to a wedge position and hemodynamics as well as oxygen saturations were measured upon pullback in the standard fashion. The Carney-Brianna catheter was removed. ACT was drawn and in an appropriate range so the right femoral sheath was removed. A radial band was placed over the arteriotomy site for hemostasis. The patient left the optical lab technician cardiovascularly stable. FINDINGS CORONARY ANGIOGRAPHY Left Main: Normal size vessel with no significant disease. It trifurcates into an LAD, ramus and circumflex. LAD: Small to moderate size vessel with mild luminal irregularities throughout the midportion, but no significant disease. It gives off one diagonal which is overall small but has no significant disease. Ramus: Moderate size vessel with no significant disease. Left Circumflex: Normal size vessel with mild luminal irregularities throughout the midportion. It gives off one major obtuse marginal with no significant disease. RCA: Normal size vessel with no significant disease. It is a dominant vessel in nature. PDA has mild tortuosity but no disease. HEMODYNAMICS RA 5. RV 27/4. RVEDP 7. PA 25/9, mean PA 15. Wedge 11. LVEDP 16. Cardiac output 4.7. Cardiac index 2.7. IMPRESSION 1. Acute systolic heart failure, ejection fraction 35-40%. 2. New cardiomyopathy, nonischemic in nature. 3. Tobacco abuse. RECOMMENDATIONS 1. Sunday appears to have acute systolic heart failure with a new cardiomyopathy and was found to be nonischemic in nature. 2. Overall she has been well-diuresed and has just mildly elevated left filling pressures. 3. She has no significant coronary artery disease as a cause for her cardiomyopathy. 4. She will be started on appropriate heart failure medication and will have to watch her creatinine as this has been mildly elevated over the past few days. 5. She should have a repeat echocardiogram in the next 3-6 months to evaluate for resolution of her cardiomyopathy. 6. Tobacco cessation. Thank you for allowing me to see Betty Sunday. If there are any questions, please do not hesitate to call. Sunny Thompson DO VGP/BT /11:22 AM /11:32 AM
[2017-02-14] MEDS: oxyCODONE/ACETAMINOPHEN 5 MG/325 MG TAB PO PRN ×2 (12:06→18:51)
[2017-02-14] MEDS ORDERED: IOHEXOL 350 MG/ML 50 ML BTL (for Cath Lab) OTHER ONE (12:06)
[2017-02-14] MEDS: ACETAMINOPHEN 325 MG TAB PO PRN (15:03)
--- NOTE | 2017-02-14 16:54 | PD.CARD.PN ---
Subjective Subjective Remarks No events overnight Post-cath Feels well, no chest pain, SOB less Objective Medications Current Medications Medications (Trade) Dose Ordered Sig/Halie Route Start Time Stop Time Status Last Admin (Prinivil) 20 mg DAILY PO 02/05/17 09:00 02/13/17 08:52 (Vasotec Inj) 1.25 mg Q6H PRN IV PUSH 02/04/17 17:15 (Catapres) 0.1 mg Q6H PRN PO 02/04/17 17:15 02/08/17 13:17 (Vitamin B1) 100 mg DAILY PO 02/05/17 09:00 02/14/17 08:23 (Ativan Inj) 1 mg Q4H PRN IV PUSH 02/04/17 17:30 (Ativan) 2 mg Q2H PRN PO 02/04/17 17:30 02/08/17 21:24 (Ativan Inj) 2 mg Q2H PRN IV PUSH 02/04/17 17:30 02/11/17 21:55 (Ativan Inj) 2 mg Q1H PRN IV PUSH 02/04/17 17:30 (Ativan Inj) 2 mg Q15M PRN IV PUSH 02/04/17 17:30 (Haldol Inj) 2 mg Q15M PRN IM 02/04/17 17:30 (NS Flush) 2 ml UNSCH PRN IV FLUSH 02/04/17 17:30 (NS Flush) 2 ml BID IV FLUSH 02/04/17 21:00 02/14/17 08:25 (Tylenol) 650 mg Q4H PRN PO 02/04/17 17:30 02/14/17 15:03 (Zofran Inj) 4 mg Q6H PRN IVP 02/04/17 17:30 02/11/17 04:52 (Sharla-Colace) 1 tab BID PO 02/04/17 21:00 02/13/17 20:41 (Milk Of Magnesia Liq) 30 ml Q12H PRN PO 02/04/17 17:30 (Senokot) 17.2 mg Q12H PRN PO 02/04/17 17:30 (Dulcolax Supp) 10 mg DAILY PRN RECTAL 02/04/17 17:30 (Lactulose Liq) 30 ml DAILY PRN PO 02/04/17 17:30 (Habitrol 21 Mg Patch.24 Hr) 1 patch DAILY T-DERMAL 02/05/17 09:00 02/14/17 08:24 Miscellaneous Information 1 DAILY T-DERMAL 02/05/17 09:00 02/14/17 08:25 (D50w (Vial) Inj) 50 ml UNSCH PRN IV PUSH 02/04/17 17:30 (Glucagon Inj) 1 mg UNSCH PRN OTHER 02/04/17 17:30 (NovoLOG SUPPLEMENTAL SCALE) 1 ACHS SLIDING SCALE SQ 02/04/17 21:00 02/12/17 21:00 (Heparin Inj) 5,000 units Q12HR SQ 02/04/17 21:00 Future Hold 02/09/17 08:56 (Protonix) 40 mg DAILY PO 02/06/17 11:00 02/14/17 08:23 (Duoneb Neb) 1 ampule Q4HR NEB PRN NEB 02/08/17 15:45 02/11/17 00:19 (Deltasone) 20 mg BID PO 02/08/17 21:00 02/14/17 08:23 Azithromycin 500 mg/Sodium Chloride 250 ml @ 250 mls/hr Q24H IV 02/10/17 09:00 02/14/17 08:24 (Percocet 5-325 Mg) 1 tab Q6H PRN PO 02/10/17 12:00 02/14/17 12:06 Cefepime HCl 2000 mg/Sodium Chloride 100 ml @ 200 mls/hr Q12H IV 02/11/17 00:00 02/14/17 12:00 (Flagyl) 500 mg Q8HR PO 02/10/17 22:00 02/14/17 15:03 (Duoneb Neb) 1 ampule Q6HR NEB NEB 02/11/17 10:00 02/14/17 15:50 (Ativan) 0.5 mg Q8H PRN PO 02/11/17 08:15 02/13/17 20:41 (KCl) 20 meq Q12HR PO 02/11/17 18:00 02/14/17 08:24 Miscellaneous Information Patient in critical care unit? Ass... Q361D .XX 02/11/17 09:15 (Chlorhexidine 2% Cloth) 3 pack DAILY@04 TOPICAL 02/12/17 04:00 02/16/17 04:01 02/14/17 00:35 (Chlorhexidine 2% Cloth) 3 pack UNSCH PRN TOPICAL 02/11/17 09:15 02/16/17 09:07 (Lasix Inj) 40 mg BID@09,18 IV PUSH 02/11/17 15:00 02/14/17 08:24 (Neurontin) 100 mg TID PO 02/13/17 13:00 02/14/17 15:03 (Coreg) 3.125 mg Q12HR PO 02/14/17 21:00 Vital Signs / I&O Vital Signs Date Time Temp Pulse Resp B/P (MAP) Pulse Ox O2 Delivery O2 Flow Rate FiO2 02/14/17 06:00 82 02/14/17 04:00 97.9 82 16 138/81 (100) 92 02/14/17 04:00 92 Nasal Cannula 3.00 02/14/17 04:00 82 02/14/17 02:00 74 02/14/17 00:00 93 Nasal Cannula 3.00 02/14/17 00:00 76 02/14/17 00:00 98.9 76 18 124/71 (88) 93 02/13/17 22:00 76 02/13/17 21:58 95 Nasal Cannula 2.00 02/13/17 20:00 95 Nasal Cannula 3.00 02/13/17 20:00 78 02/13/17 20:00 98.4 78 22 134/78 (96) 95 02/13/17 18:00 80 I/O 02/13/17 02/13/17 02/13/17 02/14/17 02/14/17 02/14/17 07:00 15:00 23:00 07:00 15:00 23:00 Intake Total 500 ml 350 ml 240 ml 440 ml Output Total 1400 ml 2850 ml Balance -900 ml 350 ml -2610 ml 440 ml Intake Oral 400 ml 240 ml 240 ml IV Total 100 ml 350 ml 200 ml Output Urine Total 1400 ml 2850 ml Stool Total 0 ml # Voids 2 # Bowel Movements 0 0 0 Physical Exam GENERAL: NAD, AAOx3 SKIN: Warm and dry. HEAD: Atraumatic. Normocephalic. EYES: Pupils equal and round. No scleral icterus. No injection or drainage. ENT: No nasal bleeding or discharge. Mucous membranes pink and moist. NECK: Trachea midline. No JVD. CARDIOVASCULAR: Regular rate and rhythm. RESPIRATORY: No accessory muscle use. Decreased breath sounds bilaterally GASTROINTESTINAL: Abdomen soft, non-tender, nondistended. Hepatic and splenic margins not palpable. MUSCULOSKELETAL: Extremities without clubbing, cyanosis, or edema. No obvious deformities. NEUROLOGICAL: Awake and alert. No obvious cranial nerve deficits. Motor grossly within normal limits. Five out of 5 muscle strength in the arms and legs. Normal speech. PSYCHIATRIC: Appropriate mood and affect; insight and judgment normal. Laboratory Laboratory Tests Test 02/14/17 03:29 White Blood Count 15.2 TH/MM3 Red Blood Count 2.76 MIL/MM3 Hemoglobin 10.0 GM/DL Hematocrit 29.4 % Mean Corpuscular Volume 106.8 FL Mean Corpuscular Hemoglobin 36.2 PG Mean Corpuscular Hemoglobin Concent 33.9 % Red Cell Distribution Width 15.3 % Platelet Count 546 TH/MM3 Mean Platelet Volume 8.6 FL Neutrophils (%) (Auto) 88.3 % Lymphocytes (%) (Auto) 5.6 % Monocytes (%) (Auto) 5.9 % Eosinophils (%) (Auto) 0.1 % Basophils (%) (Auto) 0.1 % Neutrophils # (Auto) 13.4 TH/MM3 Lymphocytes # (Auto) 0.8 TH/MM3 Monocytes # (Auto) 0.9 TH/MM3 Eosinophils # (Auto) 0.0 TH/MM3 Basophils # (Auto) 0.0 TH/MM3 CBC Comment DIFF FINAL Differential Comment Blood Urea Nitrogen 30 MG/DL Creatinine 1.25 MG/DL Random Glucose 202 MG/DL Calcium Level 9.0 MG/DL Sodium Level 139 MEQ/L Potassium Level 3.8 MEQ/L Chloride Level 98 MEQ/L Carbon Dioxide Level 32.2 MEQ/L Anion Gap 9 MEQ/L Estimat Glomerular Filtration Rate 44 ML/MIN Assessment and Plan Problem List: (1) Tobacco abuse ICD Codes: Z72.0 - Tobacco use (2) Cardiomyopathy ICD Codes: I42.9 - Cardiomyopathy, unspecified (3) CHF (congestive heart failure) ICD Codes: I50.9 - Heart failure, unspecified (4) Bilateral pulmonary infiltrates on chest x-ray ICD Codes: R91.8 - Other nonspecific abnormal finding of lung field Assessment and Plan 1. Acute systolic heart failure/New-onset cardiomyopathy with an ejection fraction of 35-40%. Con't diuresis as possible RHC showing she has been diuresed well to this point 2. Tobacco cessation 3. NICM EF 35-40% Con't Lisinopril Start on Coreg 4. Repeat echo in 3-6 months to see if resolution Sunny Marques DO Feb 14, 2017 16:54
[2017-02-14] MEDS: CARVEDILOL 3.125 MG TAB PO SCH (21:39)
[2017-02-14] MEDS: LORazepam 0.5 MG TAB PO PRN (21:40)
[2017-02-15] VITALS (12 sets, daily range): BP systolic 96–122; BP diastolic 56–79; PULSE 71–97; RESP 12–22; TEMP 97.9–98.8; O2SAT 96–100
[2017-02-15] MEDS: CHLORHEXIDINE GLUCONATE 2 % 1 PACK (2 CLOTHS)(taper/protocol) TOPICAL SCH (00:15)
[2017-02-15] MEDS: CEFEPIME INJ 2,000 MG in SODIUM CHLORIDE 0.9% INJ 100 ML IV SCH ×3 (00:15→23:33)
[2017-02-15] MEDS: metroNIDAZOLE 500 MG TAB PO SCH (04:51)
[2017-02-15] MEDS: RESP: ALBUTEROL 2.5 MG/IPRATROPIUM 0.5 MG NEB (SCH) NEB ×2 (05:16→08:11)
[2017-02-15 06:09] LABS: AUTOMATED NEUTROPHIL # 13.8 TH/MM3 (1.8-7.7); BASOPHIL % 0.1 % (0.0-2.0); EOSINOPHIL # 0.1 TH/MM3 (0-0.4); EOSINOPHIL % 0.7 % (0.0-4.0); HEMATOCRIT 31.2 % (35.0-46.0); HEMO FLAGS DIFF FINAL; LYMPH % 6.6 % (9.0-44.0); LYMPHOCYTE # 1.1 TH/MM3 (1.0-4.8); MEAN CELL VOLUME 107.2 FL (80.0-100.0); MEAN CORPUSCULAR HEMOGLOBIN 35.9 PG (27.0-34.0); MEAN CORPUSCULAR HGB CONC 33.5 % (32.0-36.0); MONO % 6.3 % (0.0-8.0); NEUT % 86.3 % (16.0-70.0); PLATELET COUNT 513 TH/MM3 (150-450); RED BLOOD COUNT 2.91 MIL/MM3 (4.00-5.30); RED CELL DISTRIBUTION WIDTH 15.1 % (11.6-17.2); WHITE BLOOD COUNT 15.9 TH/MM3 (4.0-11.0)
[2017-02-15 06:25] LABS: POTASSIUM 3.6 MEQ/L (3.5-5.1)
[2017-02-15] MEDS: FUROSEMIDE 40 MG/4 ML VIAL IV PUSH SCH ×2 (08:59→18:14)
[2017-02-15] MEDS: AZITHROMYCIN INJ 500 MG in SODIUM CHLOR 0.9% 250 ML INJ 250 ML IV SCH (09:00)
[2017-02-15] MEDS: CARVEDILOL 3.125 MG TAB PO SCH ×2 (09:00→21:45)
[2017-02-15] MEDS: POTASSIUM CHLORIDE 20 MEQ CONTROLLED RELEASE TAB PO SCH ×2 (09:00→21:46)
[2017-02-15] MEDS: GABAPENTIN 100 MG CAP PO SCH ×3 (09:00→18:14)
[2017-02-15] MEDS: THIAMINE HCL 100 MG TAB PO SCH (09:00)
[2017-02-15] MEDS: predniSONE 20 MG TAB PO SCH (09:00)
[2017-02-15] MEDS: PANTOPRAZOLE SOD 40 MG DELAYED RELEASE TAB PO SCH (09:00)
[2017-02-15] MEDS: REMOVE OLD PATCH T-DERMAL SCH (09:00)
[2017-02-15] MEDS: LISINOPRIL 20 MG TAB PO SCH (09:00)
[2017-02-15] MEDS: SODIUM CHLORIDE 0.9% FLUSH 10 ML FLUSH IV FLUSH SCH ×2 (09:00→21:46)
[2017-02-15] MEDS: DOCUSATE SODIUM 50 MG/SENNA 8.6 MG TAB PO SCH ×2 (09:00→21:00)
[2017-02-15] MEDS: INSULIN ASPART SUPPLEMENTAL SCALE SQ SCH ×4 (09:01→21:00)
[2017-02-15] MEDS: NICOTINE 21 MG/24 HR PATCH T-DERMAL SCH (09:31)
[2017-02-15] MEDS: oxyCODONE/ACETAMINOPHEN 5 MG/325 MG TAB PO PRN (09:31)
--- NOTE | 2017-02-15 10:52 | HHI.PR ---
Subjective Remarks Follow-up for shortness of breath, CHF Shortness of breath a lot better, lower extremity edema better. No chest pain. Joint pains a lot better. Discussed with Dr. Marques TO transfer to [facility]. Good urine output. Objective Vitals Vital Signs Date Time Temp Pulse Resp B/P (MAP) Pulse Ox O2 Delivery O2 Flow Rate FiO2 02/15/17 08:11 97 Nasal Cannula 2.00 02/15/17 06:00 72 02/15/17 04:00 98.7 71 12 118/62 (80) 96 02/15/17 04:00 71 02/15/17 04:00 96 Nasal Cannula 2.00 02/15/17 02:00 71 02/15/17 00:00 73 02/15/17 00:00 98.8 73 14 96/56 (69) 98 02/15/17 00:00 98 Nasal Cannula 2.00 02/14/17 22:00 82 02/14/17 20:44 98 Nasal Cannula 1.50 02/14/17 20:00 79 02/14/17 20:00 97 Nasal Cannula 2.00 02/14/17 20:00 98.9 79 20 110/69 (83) 97 02/14/17 20:00 98.9 79 20 110/69 (83) 97 02/14/17 18:00 91 02/14/17 16:00 82 02/14/17 16:00 97 Nasal Cannula 2.00 02/14/17 16:00 98.1 82 12 100/58 (72) 97 02/14/17 14:00 80 02/14/17 12:00 98.3 76 13 133/76 (95) 96 02/14/17 12:00 96 Nasal Cannula 2.00 02/14/17 12:00 76 I/O 02/14/17 02/14/17 02/14/17 02/15/17 02/15/17 02/15/17 07:00 15:00 23:00 07:00 15:00 23:00 Intake Total 440 ml 480 ml 240 ml Output Total 1200 ml Balance 440 ml -720 ml 240 ml Intake Oral 240 ml 480 ml 240 ml IV Total 200 ml Output Urine Total 1200 ml # Voids 2 2 # Bowel Movements 0 Result Diagram: 02/15/1734702/15/17347 Objective Remarks GENERAL: Pleasant 56-year-old female, awake, alert and oriented x 3 CARDIOVASCULAR: Regular rate and rhythm. RESPIRATORY: Occasional wheezing in the upper lobes, crackles at bases. GASTROINTESTINAL: Abdomen soft, non-tender, nondistended. Hepatic and splenic margins not palpable. MUSCULOSKELETAL: Joint tenderness resolving. Trace edema lower extremities- improved significantly NEUROLOGICAL: Awake and alert 3. No obvious cranial nerve deficits. Motor grossly within normal limits. Normal speech. A/P Problem List: (1) Sepsis affecting skin ICD Code: A41.9 - Sepsis, unspecified organism (2) Cellulitis of left lower extremity ICD Code: L03.116 - Cellulitis of left lower limb Assessment and Plan This is a 56-year-old female medical history significant for hypertension and diabetes. She presented to the ER for diffuse lower extremity pain and swelling. Initially she started with a blister on her left heel and this progressed to cellulitis of the foot and ankle. Also reported some left elbow pain from overuse. Patient developed some SOB on 02/08, CXR was concerning for PNA. BNP was also elevated. The patient was placed back on abx for her PNA. Heart failure workup began on 02/10. Overnight on the she developed worsening SOB and was transferred to the ICU. She clinically improved after diuresis and placed on non-rebreather. Cardiac workup was ordered. Sepsis on admission secondary to left lower extremity cellulitis, concern for oligo arthritis. She is status post aspiration of the left knee which was not consistent with septic arthritis. The patient is currently afebrile, blood cultures negative to date. Synovial fluid knee and abscess of wrist with no growth. The patient was previously on vancomycin and Zosyn. CTA negative for PE , but showed extensive bilateral airspace disease, presumably infectious or inflammatory and moderate right and small left pleural effusions. Now on cefepime/azithro, infectious disease following Hypoxia: secondary to acute CHF exacerbation. much improved. Strict I&Os. on lasix 40mg IV q12hrs. Trop 0.03. Status post cardiac catheterization, unremarkable. Ejection fraction 35-40%. Discussed with Dr. Marques, continue Coreg and lisinopril. Repeat echocardiogram as outpatient. Ultrasound of the right groin tomorrow if right groin is routing equipment tender. Stop prednisone. Acute CHF: EF 35-40%. lasix IV 40mg q12hrs, fluid restriction 1500ml/day, low sodium diet. cards following Acute renal failure-likely cardiorenal, continue Lasix, creatinine stable. Monitor BMP tomorrow. Switch Lasix to oral, possibly tomorrow. Hypokalemia: resolved. Macrocytic anemia: Likely related to alcohol abuse. See [facility] protocol. The patient had a EGD with biopsy done on 02/08 for her anemia. Per report 2 cm hiatal hernia noted, class a esophagitis, mild gastritis in the gastric atrium with multiple biopsies obtained, normal duodenal mucosa retroflexion was performed and normal. For now the plan is to await biopsy results, continue PPI , capsule endoscopy as an outpatient if continued drop hemoglobin. GI has signed off. Hypertension: Continue lisinopril daily, Vasotec and clonidine when necessary. Diabetes: Sliding scale, diabetic diet. HbA1C 5.4. BS elevated secondary to steroid use. Neuropathy/foot pain: pt describes her pain as "pins and needles" she does have some decreased sensation. Continue gabapentin 100mg po TID and titrate up slowly. COPD exacerbation: Continue prednisone 20 mg twice a day. on Cefepime and Azithromycin on 02/10. Anxiety & Insomnia: ativan 0.25 mg q6 prn, restoril for insomnia DVT prophylaxis: Heparin Discharge Planning Transfer to [facility]. Start physical therapy Harmony Manuel MD Feb 15, 2017 10:52
[2017-02-15] MEDS: ACETAMINOPHEN 325 MG TAB PO PRN (14:55)
--- NOTE | 2017-02-15 16:14 | PD.CARD.PN ---
Subjective Subjective Remarks No events overnight Feels much better, no chest pain, SOB better Objective Medications Current Medications Medications (Trade) Dose Ordered Sig/Halie Route Start Time Stop Time Status Last Admin (Prinivil) 20 mg DAILY PO 02/05/17 09:00 02/15/17 09:00 (Vasotec Inj) 1.25 mg Q6H PRN IV PUSH 02/04/17 17:15 (Catapres) 0.1 mg Q6H PRN PO 02/04/17 17:15 02/08/17 13:17 (Vitamin B1) 100 mg DAILY PO 02/05/17 09:00 02/15/17 09:00 (Ativan Inj) 1 mg Q4H PRN IV PUSH 02/04/17 17:30 (Ativan) 2 mg Q2H PRN PO 02/04/17 17:30 02/08/17 21:24 (Ativan Inj) 2 mg Q2H PRN IV PUSH 02/04/17 17:30 02/11/17 21:55 (Ativan Inj) 2 mg Q1H PRN IV PUSH 02/04/17 17:30 (Ativan Inj) 2 mg Q15M PRN IV PUSH 02/04/17 17:30 (Haldol Inj) 2 mg Q15M PRN IM 02/04/17 17:30 (NS Flush) 2 ml UNSCH PRN IV FLUSH 02/04/17 17:30 (NS Flush) 2 ml BID IV FLUSH 02/04/17 21:00 02/15/17 09:00 (Tylenol) 650 mg Q4H PRN PO 02/04/17 17:30 02/15/17 14:55 (Zofran Inj) 4 mg Q6H PRN IVP 02/04/17 17:30 02/11/17 04:52 (Sharla-Colace) 1 tab BID PO 02/04/17 21:00 02/15/17 09:00 (Milk Of Magnesia Liq) 30 ml Q12H PRN PO 02/04/17 17:30 (Senokot) 17.2 mg Q12H PRN PO 02/04/17 17:30 (Dulcolax Supp) 10 mg DAILY PRN RECTAL 02/04/17 17:30 (Lactulose Liq) 30 ml DAILY PRN PO 02/04/17 17:30 (Habitrol 21 Mg Patch.24 Hr) 1 patch DAILY T-DERMAL 02/05/17 09:00 02/15/17 09:31 Miscellaneous Information 1 DAILY T-DERMAL 02/05/17 09:00 02/14/17 08:25 (D50w (Vial) Inj) 50 ml UNSCH PRN IV PUSH 02/04/17 17:30 (Glucagon Inj) 1 mg UNSCH PRN OTHER 02/04/17 17:30 (NovoLOG SUPPLEMENTAL SCALE) 1 ACHS SLIDING SCALE SQ 02/04/17 21:00 02/15/17 12:41 (Heparin Inj) 5,000 units Q12HR SQ 02/04/17 21:00 Future hold 02/09/17 08:56 (Protonix) 40 mg DAILY PO 02/06/17 11:00 02/15/17 09:00 (Duoneb Neb) 1 ampule Q4HR NEB PRN NEB 02/08/17 15:45 02/11/17 00:19 (Percocet 5-325 Mg) 1 tab Q6H PRN PO 02/10/17 12:00 02/15/17 09:31 Cefepime HCl 2000 mg/Sodium Chloride 100 ml @ 200 mls/hr Q12H IV 02/11/17 00:00 02/15/17 12:42 (Ativan) 0.5 mg Q8H PRN PO 02/11/17 08:15 02/14/17 21:40 (KCl) 20 meq Q12HR PO 02/11/17 18:00 02/15/17 09:00 Miscellaneous Information Patient in critical care unit? Ass... Q361D .XX 02/11/17 09:15 (Chlorhexidine 2% Cloth) 3 pack DAILY@04 TOPICAL 02/12/17 04:00 02/16/17 04:01 02/15/17 00:15 (Chlorhexidine 2% Cloth) 3 pack UNSCH PRN TOPICAL 02/11/17 09:15 02/16/17 09:07 (Lasix Inj) 40 mg BID@,18 IV PUSH 02/11/17 15:00 02/15/17 08:59 (Neurontin) 100 mg TID PO 02/13/17 13:00 02/15/17 12:41 (Coreg) 3.125 mg Q12HR PO 02/14/17 21:00 02/15/17 09:00 (Zithromax) 500 mg DAILY PO 02/16/17 09:00 Vital Signs / I&O Vital Signs Date Time Temp Pulse Resp B/P (MAP) Pulse Ox O2 Delivery O2 Flow Rate FiO2 02/15/17 12:00 97.9 97 22 121/59 (79) 99 02/15/17 08:11 97 Nasal Cannula 2.00 02/15/17 08:00 98.1 81 18 122/79 (93) 97 02/15/17 08:00 Nasal Cannula 2.00 02/15/17 08:00 02/15/17 06:00 72 02/15/17 04:00 98.7 71 12 118/62 (80) 96 02/15/17 04:00 71 02/15/17 04:00 96 Nasal Cannula 2.00 02/15/17 02:00 71 02/15/17 00:00 73 02/15/17 00:00 98.8 73 14 96/56 (69) 98 02/15/17 00:00 98 Nasal Cannula 2.00 02/14/17 22:00 82 02/14/17 20:44 98 Nasal Cannula 1.50 02/14/17 20:00 79 02/14/17 20:00 97 Nasal Cannula 2.00 02/14/17 20:00 98.9 79 20 110/69 (83) 97 02/14/17 20:00 98.9 79 20 110/69 (83) 97 02/14/17 18:00 91 I/O 02/14/17 02/14/17 02/14/17 02/15/17 02/15/17 02/15/17 07:00 15:00 23:00 07:00 15:00 23:00 Intake Total 440 ml 480 ml 240 ml Output Total 1200 ml Balance 440 ml -720 ml 240 ml Intake Oral 240 ml 480 ml 240 ml IV Total 200 ml Output Urine Total 1200 ml # Voids 2 2 # Bowel Movements 0 Physical Exam GENERAL: NAD, AAOx3 SKIN: Warm and dry. HEAD: Atraumatic. Normocephalic. EYES: Pupils equal and round. No scleral icterus. No injection or drainage. ENT: No nasal bleeding or discharge. Mucous membranes pink and moist. NECK: Trachea midline. No JVD. CARDIOVASCULAR: Regular rate and rhythm. RESPIRATORY: No accessory muscle use. Decreased breath sounds bilaterally GASTROINTESTINAL: Abdomen soft, non-tender, nondistended. Hepatic and splenic margins not palpable. MUSCULOSKELETAL: Extremities without clubbing, cyanosis, or edema. No obvious deformities. NEUROLOGICAL: Awake and alert. No obvious cranial nerve deficits. Motor grossly within normal limits. Five out of 5 muscle strength in the arms and legs. Normal speech. PSYCHIATRIC: Appropriate mood and affect; insight and judgment normal. Laboratory Laboratory Tests Test 02/15/17 03:48 White Blood Count 15.9 TH/MM3 Red Blood Count 2.91 MIL/MM3 Hemoglobin 10.5 GM/DL Hematocrit 31.2 % Mean Corpuscular Volume 107.2 FL Mean Corpuscular Hemoglobin 35.9 PG Mean Corpuscular Hemoglobin Concent 33.5 % Red Cell Distribution Width 15.1 % Platelet Count 513 TH/MM3 Mean Platelet Volume 8.8 FL Neutrophils (%) (Auto) 86.3 % Lymphocytes (%) (Auto) 6.6 % Monocytes (%) (Auto) 6.3 % Eosinophils (%) (Auto) 0.7 % Basophils (%) (Auto) 0.1 % Neutrophils # (Auto) 13.8 TH/MM3 Lymphocytes # (Auto) 1.1 TH/MM3 Monocytes # (Auto) 1.0 TH/MM3 Eosinophils # (Auto) 0.1 TH/MM3 Basophils # (Auto) 0.0 TH/MM3 CBC Comment DIFF FINAL Differential Comment Blood Urea Nitrogen 29 MG/DL Creatinine 1.24 MG/DL Random Glucose 181 MG/DL Calcium Level 9.5 MG/DL Sodium Level 138 MEQ/L Potassium Level 3.6 MEQ/L Chloride Level 98 MEQ/L Carbon Dioxide Level 30.0 MEQ/L Anion Gap 10 MEQ/L Estimat Glomerular Filtration Rate 45 ML/MIN Assessment and Plan Problem List: (1) Tobacco abuse ICD Codes: Z72.0 - Tobacco use (2) Cardiomyopathy ICD Codes: I42.9 - Cardiomyopathy, unspecified (3) CHF (congestive heart failure) ICD Codes: I50.9 - Heart failure, unspecified (4) Bilateral pulmonary infiltrates on chest x-ray ICD Codes: R91.8 - Other nonspecific abnormal finding of lung field Assessment and Plan 1. Acute systolic heart failure/New-onset cardiomyopathy with an ejection fraction of 35-40%. Con't diuresis as possible RHC showing she has been diuresed well to this point 2. Tobacco cessation 3. NICM EF 35-40% Con't Lisinopril Started on Coreg 4. Repeat echo in 3-6 months to see if resolution Sunny Marques DO Feb 15, 2017 16:14
[2017-02-15] MEDS: HEPARIN SODIUM - SQ 10,000 UNITS/ML VIAL SQ SCH (21:00)
[2017-02-15] MEDS: LORazepam 0.5 MG TAB PO PRN (21:45)
[2017-02-16] VITALS (8 sets, daily range): BP systolic 92–118; BP diastolic 55–65; PULSE 73–83; RESP 13–23; TEMP 97.9–98.3; O2SAT 95–99
[2017-02-16] MEDS: CHLORHEXIDINE GLUCONATE 2 % 1 PACK (2 CLOTHS)(taper/protocol) TOPICAL SCH (04:00)
[2017-02-16 07:32] LABS: BICARBONATE 30.5 MEQ/L (21.0-32.0); POTASSIUM 3.6 MEQ/L (3.5-5.1)
[2017-02-16] MEDS: INSULIN ASPART SUPPLEMENTAL SCALE SQ SCH ×4 (08:00→21:00)
[2017-02-16] MEDS: FUROSEMIDE 40 MG/4 ML VIAL IV PUSH SCH (08:36)
[2017-02-16] MEDS: SODIUM CHLORIDE 0.9% FLUSH 10 ML FLUSH IV FLUSH SCH ×2 (08:36→21:39)
[2017-02-16] MEDS: CARVEDILOL 3.125 MG TAB PO SCH ×2 (08:38→21:38)
[2017-02-16] MEDS: DOCUSATE SODIUM 50 MG/SENNA 8.6 MG TAB PO SCH ×2 (08:38→21:00)
[2017-02-16] MEDS: LISINOPRIL 20 MG TAB PO SCH (08:38)
[2017-02-16] MEDS: THIAMINE HCL 100 MG TAB PO SCH (08:38)
[2017-02-16] MEDS: POTASSIUM CHLORIDE 20 MEQ CONTROLLED RELEASE TAB PO SCH ×2 (08:39→21:37)
[2017-02-16] MEDS: GABAPENTIN 100 MG CAP PO SCH ×3 (08:39→18:00)
[2017-02-16] MEDS: REMOVE OLD PATCH T-DERMAL SCH (08:39)
[2017-02-16] MEDS: NICOTINE 21 MG/24 HR PATCH T-DERMAL SCH (08:39)
[2017-02-16] MEDS: PANTOPRAZOLE SOD 40 MG DELAYED RELEASE TAB PO SCH (08:39)
[2017-02-16] MEDS: HEPARIN SODIUM - SQ 10,000 UNITS/ML VIAL SQ SCH ×2 (08:40→21:00)
[2017-02-16] MEDS: oxyCODONE/ACETAMINOPHEN 5 MG/325 MG TAB PO PRN ×2 (08:47→21:38)
[2017-02-16] MEDS ORDERED: AZITHROMYCIN 250 MG TAB PO SCH (09:00)
--- NOTE | 2017-02-16 09:06 | PD.CARD.PN ---
Subjective Subjective Remarks No events overnight Feels much better, no chest pain, SOB better Up to chair Objective Medications Current Medications Medications (Trade) Dose Ordered Sig/Halie Route Start Time Stop Time Status Last Admin (Prinivil) 20 mg DAILY PO 02/05/17 09:00 02/16/17 08:38 (Vasotec Inj) 1.25 mg Q6H PRN IV PUSH 02/04/17 17:15 (Catapres) 0.1 mg Q6H PRN PO 02/04/17 17:15 02/08/17 13:17 (Vitamin B1) 100 mg DAILY PO 02/05/17 09:00 02/16/17 08:38 (Ativan Inj) 1 mg Q4H PRN IV PUSH 02/04/17 17:30 (Ativan) 2 mg Q2H PRN PO 02/04/17 17:30 02/08/17 21:24 (Ativan Inj) 2 mg Q2H PRN IV PUSH 02/04/17 17:30 02/11/17 21:55 (Ativan Inj) 2 mg Q1H PRN IV PUSH 02/04/17 17:30 (Ativan Inj) 2 mg Q15M PRN IV PUSH 02/04/17 17:30 (Haldol Inj) 2 mg Q15M PRN IM 02/04/17 17:30 (NS Flush) 2 ml UNSCH PRN IV FLUSH 02/04/17 17:30 (NS Flush) 2 ml BID IV FLUSH 02/04/17 21:00 02/16/17 08:36 (Tylenol) 650 mg Q4H PRN PO 02/04/17 17:30 02/15/17 14:55 (Zofran Inj) 4 mg Q6H PRN IVP 02/04/17 17:30 02/11/17 04:52 (Sharla-Colace) 1 tab BID PO 02/04/17 21:00 02/16/17 08:38 (Milk Of Magnesia Liq) 30 ml Q12H PRN PO 02/04/17 17:30 (Senokot) 17.2 mg Q12H PRN PO 02/04/17 17:30 (Dulcolax Supp) 10 mg DAILY PRN RECTAL 02/04/17 17:30 (Lactulose Liq) 30 ml DAILY PRN PO 02/04/17 17:30 (Habitrol 21 Mg Patch.24 Hr) 1 patch DAILY T-DERMAL 02/05/17 09:00 02/16/17 08:39 Miscellaneous Information 1 DAILY T-DERMAL 02/05/17 09:00 02/14/17 08:25 (D50w (Vial) Inj) 50 ml UNSCH PRN IV PUSH 02/04/17 17:30 (Glucagon Inj) 1 mg UNSCH PRN OTHER 02/04/17 17:30 (NovoLOG SUPPLEMENTAL SCALE) 1 ACHS SLIDING SCALE SQ 02/04/17 21:00 02/15/17 18:15 (Heparin Inj) 5,000 units Q12HR SQ 02/04/17 21:00 Future hold 02/09/17 08:56 (Protonix) 40 mg DAILY PO 02/06/17 11:00 02/16/17 08:39 (Duoneb Neb) 1 ampule Q4HR NEB PRN NEB 02/08/17 15:45 02/11/17 00:19 (Percocet 5-325 Mg) 1 tab Q6H PRN PO 02/10/17 12:00 02/16/17 08:47 Cefepime HCl 2000 mg/Sodium Chloride 100 ml @ 200 mls/hr Q12H IV 02/11/17 00:00 02/15/17 23:33 (Ativan) 0.5 mg Q8H PRN PO 02/11/17 08:15 02/15/17 21:45 (KCl) 20 meq Q12HR PO 02/11/17 18:00 02/16/17 08:39 Miscellaneous Information Patient in critical care unit? Ass... Q361D .XX 02/11/17 09:15 (Chlorhexidine 2% Cloth) 3 pack UNSCH PRN TOPICAL 02/11/17 09:15 02/16/17 09:07 (Lasix Inj) 40 mg BID@,18 IV PUSH 02/11/17 15:00 02/16/17 08:36 (Neurontin) 100 mg TID PO 02/13/17 13:00 02/16/17 08:39 (Coreg) 3.125 mg Q12HR PO 02/14/17 21:00 02/16/17 08:38 (Zithromax) 500 mg DAILY PO 02/16/17 09:00 02/16/17 08:38 Vital Signs / I&O Vital Signs Date Time Temp Pulse Resp B/P (MAP) Pulse Ox O2 Delivery O2 Flow Rate FiO2 02/16/17 08:15 98 Nasal Cannula 2.00 02/16/17 04:49 97 Nasal Cannula 2.00 02/16/17 04:00 97 Nasal Cannula 2.00 02/16/17 04:00 73 02/16/17 04:00 98.2 73 13 92/55 (67) 97 02/16/17 00:00 98.1 77 13 112/65 (81) 99 02/16/17 00:00 99 Nasal Cannula 2.00 02/16/17 00:00 77 02/15/17 23:52 97 Nasal Cannula 2.00 02/15/17 22:00 81 02/15/17 20:06 96 Nasal Cannula 2.00 02/15/17 20:00 77 02/15/17 20:00 98.2 77 17 107/58 (74) 99 02/15/17 20:00 99 Nasal Cannula 2.00 02/15/17 16:00 74 12 100 02/15/17 16:00 98.2 74 16 115/60 (78) 99 02/15/17 16:00 74 02/15/17 16:00 Nasal Cannula 2.00 02/15/17 16:00 100 02/15/17 16:00 74 02/15/17 12:00 Nasal Cannula 2.00 02/15/17 12:00 97.9 97 22 121/59 (79) 99 I/O 02/15/17 02/15/17 02/15/17 02/16/17 02/16/17 02/16/17 07:00 15:00 23:00 07:00 15:00 23:00 Intake Total 240 ml 1070 ml 340 ml Output Total 1200 ml 1000 ml Balance 240 ml -130 ml -660 ml Intake Oral 240 ml 720 ml 240 ml IV Total 350 ml 100 ml Output Urine Total 1200 ml 1000 ml # Voids 2 # Bowel Movements 1 Physical Exam GENERAL: NAD, AAOx3 SKIN: Warm and dry. HEAD: Atraumatic. Normocephalic. EYES: Pupils equal and round. No scleral icterus. No injection or drainage. ENT: No nasal bleeding or discharge. Mucous membranes pink and moist. NECK: Trachea midline. No JVD. CARDIOVASCULAR: Regular rate and rhythm. RESPIRATORY: No accessory muscle use. Decreased breath sounds bilaterally GASTROINTESTINAL: Abdomen soft, non-tender, nondistended. Hepatic and splenic margins not palpable. MUSCULOSKELETAL: Extremities without clubbing, cyanosis, or edema. No obvious deformities. NEUROLOGICAL: Awake and alert. No obvious cranial nerve deficits. Motor grossly within normal limits. Five out of 5 muscle strength in the arms and legs. Normal speech. PSYCHIATRIC: Appropriate mood and affect; insight and judgment normal. Laboratory Laboratory Tests Test 02/16/17 05:10 Blood Urea Nitrogen 34 MG/DL Creatinine 1.23 MG/DL Random Glucose 161 MG/DL Calcium Level 8.9 MG/DL Sodium Level 139 MEQ/L Potassium Level 3.6 MEQ/L Chloride Level 101 MEQ/L Carbon Dioxide Level 30.5 MEQ/L Anion Gap 8 MEQ/L Estimat Glomerular Filtration Rate 45 ML/MIN Assessment and Plan Problem List: (1) Tobacco abuse ICD Codes: Z72.0 - Tobacco use (2) Cardiomyopathy ICD Codes: I42.9 - Cardiomyopathy, unspecified (3) CHF (congestive heart failure) ICD Codes: I50.9 - Heart failure, unspecified (4) Bilateral pulmonary infiltrates on chest x-ray ICD Codes: R91.8 - Other nonspecific abnormal finding of lung field Assessment and Plan 1. Acute systolic heart failure/New-onset cardiomyopathy with an ejection fraction of 35-40%. Con't diuresis as possible, changed to daily Lasix RHC showing she has been diuresed well to this point Still requiring 2L O2 Up out of bed as much as possible 2. Tobacco cessation 3. NICM EF 35-40% Con't Lisinopril/Coreg 4. Repeat echo in 3-6 months to see if resolution 5. Will plan to see on Sunday if still here, if concerns over the weekend please call covering physician Sunny Marques DO Feb 16, 2017 09:06
[2017-02-16] MEDS: CEFEPIME INJ 2,000 MG in SODIUM CHLORIDE 0.9% INJ 100 ML IV SCH (14:21)
--- NOTE | 2017-02-16 16:43 | HHI.PR ---
Subjective Remarks FOLLOW UP CHF HAS HAD MEDICATIONS ADJUSTED BY CARDIOLOGY DW PATIENT AND RN NEEDS PT AND OT INCREASE ACTIVITY Objective Vitals Vital Signs Date Time Temp Pulse Resp B/P (MAP) Pulse Ox O2 Delivery O2 Flow Rate FiO2 02/16/17 12:00 98.3 76 17 100/60 (73) 95 02/16/17 09:47 16 02/16/17 08:15 98 Nasal Cannula 2.00 02/16/17 08:00 97.9 81 16 104/57 (73) 98 02/16/17 08:00 Room Air 02/16/17 04:49 97 Nasal Cannula 2.00 02/16/17 04:00 97 Nasal Cannula 2.00 02/16/17 04:00 73 02/16/17 04:00 98.2 73 13 92/55 (67) 97 02/16/17 00:00 98.1 77 13 112/65 (81) 99 02/16/17 00:00 99 Nasal Cannula 2.00 02/16/17 00:00 77 02/15/17 23:52 97 Nasal Cannula 2.00 02/15/17 22:00 81 02/15/17 20:06 96 Nasal Cannula 2.00 02/15/17 20:00 77 02/15/17 20:00 98.2 77 17 107/58 (74) 99 02/15/17 20:00 99 Nasal Cannula 2.00 I/O 02/15/17 02/15/17 02/15/17 02/16/17 02/16/17 02/16/17 07:00 15:00 23:00 07:00 15:00 23:00 Intake Total 240 ml 1070 ml 340 ml Output Total 1200 ml 1000 ml Balance 240 ml -130 ml -660 ml Intake Oral 240 ml 720 ml 240 ml IV Total 350 ml 100 ml Output Urine Total 1200 ml 1000 ml # Voids 2 # Bowel Movements 1 Result Diagram: 02/15/17 0348 02/16/17 0510 Other Results Laboratory Tests Test 02/14/17 03:29 02/15/17 03:48 02/16/17 05:10 White Blood Count 15.2 TH/MM3 15.9 TH/MM3 Red Blood Count 2.76 MIL/MM3 2.91 MIL/MM3 Hemoglobin 10.0 GM/DL 10.5 GM/DL Hematocrit 29.4 % 31.2 % Mean Corpuscular Volume 106.8 FL 107.2 FL Mean Corpuscular Hemoglobin 36.2 PG 35.9 PG Mean Corpuscular Hemoglobin Concent 33.9 % 33.5 % Red Cell Distribution Width 15.3 % 15.1 % Platelet Count 546 TH/MM3 513 TH/MM3 Mean Platelet Volume 8.6 FL 8.8 FL Neutrophils (%) (Auto) 88.3 % 86.3 % Lymphocytes (%) (Auto) 5.6 % 6.6 % Monocytes (%) (Auto) 5.9 % 6.3 % Eosinophils (%) (Auto) 0.1 % 0.7 % Basophils (%) (Auto) 0.1 % 0.1 % Neutrophils # (Auto) 13.4 TH/MM3 13.8 TH/MM3 Lymphocytes # (Auto) 0.8 TH/MM3 1.1 TH/MM3 Monocytes # (Auto) 0.9 TH/MM3 1.0 TH/MM3 Eosinophils # (Auto) 0.0 TH/MM3 0.1 TH/MM3 Basophils # (Auto) 0.0 TH/MM3 0.0 TH/MM3 CBC Comment DIFF FINAL DIFF FINAL Differential Comment Blood Urea Nitrogen 30 MG/DL 29 MG/DL 34 MG/DL Creatinine 1.25 MG/DL 1.24 MG/DL 1.23 MG/DL Random Glucose 202 MG/DL 181 MG/DL 161 MG/DL Calcium Level 9.0 MG/DL 9.5 MG/DL 8.9 MG/DL Sodium Level 139 MEQ/L 138 MEQ/L 139 MEQ/L Potassium Level 3.8 MEQ/L 3.6 MEQ/L 3.6 MEQ/L Chloride Level 98 MEQ/L 98 MEQ/L 101 MEQ/L Carbon Dioxide Level 32.2 MEQ/L 30.0 MEQ/L 30.5 MEQ/L Anion Gap 9 MEQ/L 10 MEQ/L 8 MEQ/L Estimat Glomerular Filtration Rate 44 ML/MIN 45 ML/MIN 45 ML/MIN Imaging Last Impressions Chest X-Ray 02/11/17 0000 Signed Impressions: Service Date/Time: Saturday, February 11, 2017 04:20 - CONCLUSION: No significant interval change in bilateral pulmonary consolidation and left pleural effusion. Yogi Burrell MD CT Angiography 02/11/17 0000 Signed Impressions: Service Date/Time: Saturday, February 11, 2017 16:27 - CONCLUSION: 1. Extensive bilateral airspace disease, presumably infectious or inflammatory. 2. Moderate right and small left pleural effusions. 3. The pulmonary consolidation and pleural effusions appear larger than what can be seen on the comparison CT of the abdomen a few days ago. 4. Nonspecific subcarinal lymphadenopathy. 5. No pulmonary embolus. Rowdy Reyes MD Wrist X-Ray 02/07/17 Signed Impressions: Service Date/Time: Tuesday, February 07, 2017 19:02 - CONCLUSION: Osteoarthritic change as described. Zhen Owen MD Aspiration 02/07/17 Signed Impressions: Service Date/Time: Tuesday, February 07, 2017 16:38 - CONCLUSION: Uncomplicated aspiration as above. Ruy Pereira MD Knee MRI 02/06/17 Signed Impressions: Service Date/Time: Monday, February 06, 2017 15:04 - CONCLUSION: 1. Joint effusion and subcutaneous edema. 2. No evidence of internal derangement Ruy Pereira MD Ankle MRI 02/06/17 Signed Impressions: Service Date/Time: Monday, February 06, 2017 15:04 - CONCLUSION: 1. 7 mm cutaneous lesion superficial to the posterior calcaneus without extension into the deep tissues. 2. Probable disruption of the deltoid ligament with associated contusion in the medial talus. 3. Diffuse soft tissue swelling about the ankle in the subcutaneous tissues.. Renato Morales MD Abdomen/Pelvis CT 02/06/17 Signed Impressions: Service Date/Time: Tuesday, February 07, 2017 01:15 - CONCLUSION: Lobular masses involving the left adrenal gland. Further characterization with chemical shift MRI suggested. Right renal cyst. Minimal nonspecific free pelvic fluid. Lung base infiltrates and effusions Rowdy Linder MD Abdomen X-Ray 02/06/17 Signed Impressions: Service Date/Time: Monday, February 06, 2017 14:22 - CONCLUSION: Negative exam with no metallic foreign bodies identified. Zhen Owen MD Lower Extremity Ultrasound 02/04/17 Signed Impressions: Service Date/Time: Saturday, February 04, 2017 14:49 - CONCLUSION: 1. No evidence of deep venous thrombosis. 2. Multiple moderate-sized Ronquillo's cyst. 3. Multiple lymph nodes in the left groin. Zhen Owen MD Objective Remarks GENERAL: Awake alert and oriented talkative and cooperative SKIN: Warm and dry. HEAD: Atraumatic. Normocephalic. EYES: Pupils equal and round. No scleral icterus. No injection or drainage. ENT: No nasal bleeding or discharge. Mucous membranes pink and moist. NECK: Trachea midline. No JVD. CARDIOVASCULAR: Regular rate and rhythm. S1 and S2 no S3-S4 no heave or thrill or rub or gallop RESPIRATORY: No accessory muscle use. Clear to auscultation. Breath sounds equal bilaterally. GASTROINTESTINAL: Abdomen soft, non-tender, nondistended. Hepatic and splenic margins not palpable. MUSCULOSKELETAL: Extremities without clubbing, cyanosis, or edema. No obvious deformities. NEUROLOGICAL: Awake and alert. No obvious cranial nerve deficits. Motor grossly within normal limits. Five out of 5 muscle strength in the arms and legs. Normal speech. PSYCHIATRIC: Appropriate mood and affect; insight and judgment normal. Somewhat anxious Procedures MINDA THOMPSON DO DATE: 02/14/2017 PROCEDURE Left heart catheterization, right heart catheterization, coronary angiogram, ultrasound-guided access. PREPROCEDURE DIAGNOSIS Acute systolic heart failure, new cardiomyopathy. POSTPROCEDURE DIAGNOSIS Nonischemic cardiomyopathy, ejection fraction 35-40%. MEDICATION Fentanyl 50 mcg, heparin 2300 units, verapamil 2.5 mg, nitro 200 mcg. CONTRAST USED 20 cc. FLUORO TIME 2.2 minutes. SEDATION Moderate sedation zero minutes. ESTIMATED BLOOD LOSS 10 cc. PROCEDURAL SUMMARY Sunday is a pleasant 56-year-old female who presented to [facility] and was found to have acute systolic heart failure with a new cardiomyopathy. Because of this she was recommended cardiac catheterization to rule out significant ischemia as a cause. The risks, benefits and alternatives were explained to her and she consented as such. She was brought to the lab and prepped in the usual sterile fashion. The right radial artery was accessed using a modified Seldinger technique and placement of a 5/6 [place] Slender sheath. This was easily aspirated and flushed. The right brachial artery was attempted to get access with ultrasound guidance but was unable, most likely due to her significant diuresis over the past few days. A JR4 was advanced over a J-wire to the ascending aorta and across the aortic valve for measurement of left ventricular pressures. This was pulled back across the aortic valve showing no significant gradient of aortic stenosis. The JR4 was used for selective angiography of the right coronary artery. This was exchanged out for a JL 3.5 which was used for selective angiography of the left coronary artery. The JL 3.5 was removed over a J-wire. The right femoral vein was accessed using a modified Seldinger technique with ultrasound guidance and placement of a 7 [place] sheath. This was easily aspirated and flushed. A [place] catheter was advanced to a wedge position and hemodynamics as well as oxygen saturations were measured upon pullback in the standard fashion. The [place]Brianna catheter was removed. ACT was drawn and in an appropriate range so the right femoral sheath was removed. A radial band was placed over the arteriotomy site for hemostasis. 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 FINDINGS CORONARY ANGIOGRAPHY Left Main: Normal size vessel with no significant disease. It trifurcates into an LAD, ramus and circumflex. LAD: Small to moderate size vessel with mild luminal irregularities throughout the midportion, but no significant disease. It gives off one diagonal which is overall small but has no significant disease. Ramus: Moderate size vessel with no significant disease. Left Circumflex: Normal size vessel with mild luminal irregularities throughout the midportion. It gives off one major obtuse marginal with no significant disease. RCA: Normal size vessel with no significant disease. It is a dominant vessel in nature. PDA has mild tortuosity but no disease. HEMODYNAMICS RA 5. RV 27/4. RVEDP 7. PA 25/9, mean PA 15. Wedge 11. LVEDP 16. Cardiac output 4.7. Cardiac index 2.7. IMPRESSION 1. Acute systolic heart failure, ejection fraction 35-40%. 2. New cardiomyopathy, nonischemic in nature. 3. Tobacco abuse. RECOMMENDATIONS 1. Ms. Sunday appears to have acute systolic heart failure with a new cardiomyopathy and was found to be nonischemic in nature. 2. Overall she has been well-diuresed and has just mildly elevated left filling pressures. 3. She has no significant coronary artery disease as a cause for her cardiomyopathy. 4. She will be started on appropriate heart failure medication and will have to watch her creatinine as this has been mildly elevated over the past few days. 5. She should have a repeat echocardiogram in the next 3-6 months to evaluate for resolution of her cardiomyopathy. 6. Tobacco cessation. Thank you for allowing me to see Betty Sunday. If there are any questions, please do not hesitate to call. EGD (02/08/17)--Class A esophagitis, 2 cm hiatal hernia, mild gastritis in gastric antrum with multiple biopsies obtained, normal duodenal mucosa retroflexion was performed and normal. Medications and IVs Current Medications Ketorolac Tromethamine (Toradol Inj) 15 mg ONCE ONCE IV PUSH Last administered on 02/04/17 15:21; Start 02/04/17 at 14:45; Stop 02/04/17 at 14 :46; Status DC Sodium Chloride 1,000 ml @ 999 mls/hr BOLUS ONCE IV Last administered on 15:20; Start 02/04/17 at 14:45; Stop 02/04/17 at 15:45; Status DC Sodium Chloride 1,000 ml @ 999 mls/hr BOLUS ONCE IV Last administered on 15:30; Start 02/04/17 at 15:30; Stop 02/04/17 at 16:30; Status DC Piperacillin Sod/ Tazobactam Sod 100 ml @ 200 mls/hr ONCE ONCE IV Last administered on 02/04/17 15:30; Start 02/04/17 at 15:30; Stop 02/04/17 at 15 :59; Status DC Vancomycin HCl 1000 mg/Sodium Chloride 250 ml @ 250 mls/hr ONCE ONCE IV Last administered on 02/04/17 18:23; Start 02/04/17 at 15:30; Stop 02/04/17 at 16 :29; Status DC Potassium Bicarb/ Potassium Chloride (K-Lyte Cl Eff) 50 meq ONCE ONCE PO Last administered on 02/04/17 15:45; Start 02/04/17 at 15:45; Stop 02/04/17 at 15:46; Status DC Potassium Chloride 100 ml @ 100 mls/hr Q1H IV Last administered on 02/04/17 23:39; Start 02/04/17 at 18:00; Stop 02/04/17 at 20:59; Status DC Potassium Chloride (KCl) 40 meq ONCE ONCE PO ; Start 02/04/17 at 18:15; Stop 02/04/17 at 18:28; Status DC Pharmacy Profile Note 0 ml @ 0 mls/hr UNSCH OTHER ; Start 02/04/17 at 17:15; Stop 02/09/17 at 14:27; Status DC Piperacillin Sod/ Tazobactam Sod 50 ml @ 100 mls/hr Q6H IV Last administered on 02/09/17 17:14; Start 02/04/17 at 21:00; Stop 02/09/17 at 19:09; Status DC Lisinopril (Prinivil) 20 mg DAILY PO Last administered on 02/16/17 08:38; Start 02/05/17 at 09:00 Enalaprilat (Vasotec Inj) 1.25 mg Q6H PRN IV PUSH SBP> OR = 180, DBP> OR = 100 ; Start 02/04/17 at 17:15 Clonidine (Catapres) 0.1 mg Q6H PRN PO SBP> OR = 180, DBP> OR = 100 Last administered on 02/08/17 13:17; Start 02/04/17 at 17:15 Folic Acid (Folate) 1 mg DAILY PO Last administered on 02/09/17 08:56; Start 02/05/17 at 09:00; Stop 02/10/17 at 08:59; Status DC Thiamine HCl (Vitamin B1) 100 mg DAILY PO Last administered on 02/16/17 08:38 ; Start 02/05/17 at 09:00 Multivitamins/ Minerals Therapeutic (Theragran M Tab) 1 tab DAILY PO Last administered on 02/09/17 08:56; Start 02/05/17 at 09:00; Stop 02/10/17 at 08: 59; Status DC Lorazepam (Ativan) 1 mg Q4H PRN PO CIWA 8 - 10 Last administered on 02/08/17 11:23; Start 02/04/17 at 17:30; Stop 02/08/17 at 15:59; Status DC Lorazepam (Ativan Inj) 1 mg Q4H PRN IV PUSH CIWA 8 - 10; Start 02/04/17 at 17: 30 Lorazepam (Ativan) 2 mg Q2H PRN PO CIWA 11-14 Last administered on 11/2/17at 21 :24; Start 02/04/17 at 17:30 Lorazepam (Ativan Inj) 2 mg Q2H PRN IV PUSH CIWA 11-14 Last administered on 21:55; Start 02/04/17 at 17:30 Lorazepam (Ativan Inj) 2 mg Q1H PRN IV PUSH CIWA 15-20; Start 02/04/17 at 17: 30 Lorazepam (Ativan Inj) 2 mg Q15M PRN IV PUSH CIWA > 20; Start 02/04/17 at 17: 30 Haloperidol Lactate (Haldol Inj) 2 mg Q15M PRN IM SEE LABEL COMMENTS; Start at 17:30 Sodium Chloride (NS Flush) 2 ml UNSCH PRN IV FLUSH FLUSH AFTER USING IV ACCESS ; Start 02/04/17 at 17:30 Sodium Chloride (NS Flush) 2 ml BID IV FLUSH Last administered on 02/16/17 08 :36; Start 02/04/17 at 21:00 Acetaminophen (Tylenol) 650 mg Q4H PRN PO TEMP > 100.4 Last administered on 14:55; Start 02/04/17 at 17:30 Ondansetron HCl (Zofran Inj) 4 mg Q6H PRN IVP NAUSEA OR VOMITING Last administered on 02/11/17 04:52; Start 02/04/17 at 17:30 Acetaminophen (Tylenol) 650 mg Q6H PRN PO PAIN SCALE 1 TO 2 Last administered on 02/09/17 20:46; Start 02/04/17 at 17:30; Stop 02/10/17 at 11:50; Status DC Ketorolac Tromethamine (Toradol Inj) 15 mg Q6H PRN IV PUSH Pain 3-5; if unable to take PO; Start 02/04/17 at 17:30; Stop 02/09/17 at 17:29; Status Cancel Ketorolac Tromethamine (Toradol Inj) 30 mg Q6H PRN IV PUSH Pain 6-10;if unable to take PO Last administered on 02/05/17 20:43; Start 02/04/17 at 17:30; Stop 02/06/17 at 11:00; Status DC Morphine Sulfate (Morphine Inj) 1 mg Q3H PRN IV PUSH BREAKTHROUGH PAIN Last administered on 02/10/17 14:04; Start 02/04/17 at 17:30; Stop 02/10/17 at 18: 38; Status DC Senna/Docusate Sodium (Sharla-Colace) 1 tab BID PO Last administered on 08:38; Start 02/04/17 at 21:00 Magnesium Hydroxide (Milk Of Magnesia Liq) 30 ml Q12H PRN PO Mild constipation ; Start 02/04/17 at 17:30 Sennosides (Senokot) 17.2 mg Q12H PRN PO Moderate constipation; Start at 17:30 Bisacodyl (Dulcolax Supp) 10 mg DAILY PRN RECTAL SEVERE CONSITIPATION; Start 02/04/17 at 17:30 Lactulose (Lactulose Liq) 30 ml DAILY PRN PO SEVERE CONSITIPATION; Start 02/04 at 17:30 Ibuprofen (Motrin) 400 mg Q6H PRN PO pain 3-5; Start 02/04/17 at 17:30; Status Cancel Ibuprofen (Motrin) 800 mg Q8H PRN PO pain 6-10 Last administered on 02/06/17 02:41; Start 02/04/17 at 17:30; Stop 02/06/17 at 11:00; Status DC Nicotine (Habitrol 21 Mg Patch.24 Hr) 1 patch DAILY T-DERMAL Last administered on 02/16/17 08:39; Start 02/05/17 at 09:00 Miscellaneous Information 1 DAILY T-DERMAL Last administered on 02/14/17 08:25 ; Start 02/05/17 at 09:00 Dextrose (D50w (Vial) Inj) 50 ml UNSCH PRN IV PUSH HYPOGLYCEMIA-SEE COMMENTS; Start 02/04/17 at 17:30 Glucagon (Glucagon Inj) 1 mg UNSCH PRN OTHER HYPOGLYCEMIA-SEE COMMENTS; Start 02/04/17 at 17:30 Insulin Aspart (NovoLOG SUPPLEMENTAL SCALE) 1 ACHS SLIDING SCALE SQ Last administered on 02/15/17 18:15; Start 02/04/17 at 21:00 Heparin Sodium (Porcine) (Heparin Inj) 5,000 units Q12HR SQ Last administered on 02/09/17 08:56; Start 02/04/17 at 21:00; Status Future hold Vancomycin HCl 1500 mg/Sodium Chloride 515 ml @ 257.5 mls/ hr DAILY@0600 ONCE IV Last administered on 02/05/17 05:12; Start 02/05/17 at 06:00; Stop 02/05 at 07:59; Status DC Miscellaneous Information SPECIFIC LAB TO BE DRAWN: VANCOMYCIN TRO... ONCE ONCE .XX Last administered on 02/07/17 06:30; Start 02/07/17 at 05:45; Stop 02/07/17 at 05:46; Status DC Vancomycin HCl 1500 mg/Sodium Chloride 515 ml @ 250 mls/hr Q24H IV Last administered on 02/06/17 05:58; Start 02/06/17 at 06:00; Stop 02/06/17 at 11 :34; Status DC Potassium Chloride 100 ml @ 100 mls/hr Q1H IV Last administered on 02/05/17 19:00; Start 02/05/17 at 17:00; Stop 02/05/17 at 19:59; Status DC Potassium Chloride/Sodium Chloride 1,000 ml @ 84 mls/hr [id number] IV Last administered on 02/08/17 00:39; Start 02/05/17 at 16:00; Stop 02/08/17 at 15: 59; Status DC Potassium Bicarbonate (Effer-K Eff) 50 meq ONCE ONCE PO Last administered on 02/06/17 11:33; Start 02/06/17 at 11:00; Stop 02/06/17 at 11:14; Status DC Pantoprazole Sodium (Protonix) 40 mg DAILY PO Last administered on 02/16/17 08:39; Start 02/06/17 at 11:00 Vancomycin HCl 1500 mg/Sodium Chloride 515 ml @ 250 mls/hr Q12H IV Last administered on 02/07/17 06:29; Start 02/06/17 at 18:00; Stop 02/07/17 at 08: 47; Status DC Diatrizoate Meglum/ Diatrizoate Sod ( Gastroview Liq) 18 ml ONCE ONCE PO Last administered on 02/06/17 22:49; Start 02/06/17 at 20:00; Stop 02/06/17 at 20:01; Status DC Vancomycin HCl 1000 mg/Sodium Chloride 250 ml @ 250 mls/hr Q18H IV Last administered on 02/08/17 05:54; Start 02/08/17 at 06:00; Stop 02/08/17 at 21:10 ; Status DC Miscellaneous Information SPECIFIC LAB TO BE DRAWN:VANCOMYCIN TROUGH DATE TO... ONCE ONCE .XX ; Start 02/10/17 at 11:45; Stop 02/10/17 at 11:46; Status Cancel Lactated Ringer's 1,000 ml @ 30 mls/hr Q24H PRN IV SEE LABEL COMMENTS; Start 02/08/17 at 09:45; Stop 02/08/17 at 15:39; Status DC Sodium Chloride 500 ml @ 30 mls/hr [id number] PRN IV SEE LABEL COMMENTS; Start at 09:45; Stop 02/09/17 at 17:59; Status DC Metoprolol Tartrate (Lopressor) 25 mg STONE GRADER PRN PO SEE LABEL COMMENTS; Start 02/08/17 at 09:45; Stop 02/11/17 at 09:44; Status DC Povidone Iodine (Betadine 5% Antisepsis Kit) 1 applic STONE GRADER PRN EACH NARE SEE LABEL COMMENTS; Start 02/08/17 at 09:45; Stop 02/11/17 at 09:44; Status DC Chlorhexidine Gluconate (Chlorhexidine 2% Cloth) 3 pack STONE GRADER PRN TOPICAL SEE LABEL COMMENTS; Start 02/08/17 at 09:45; Stop 02/11/17 at 09:44; Status DC Insulin Human Regular (NovoLIN R INJ) See Protocol Table ... STONE GRADER PRN SQ SEE PROTOCOL TABLE; Start 02/08/17 at 09:45; Stop 02/11/17 at 09:44; Status DC Miscellaneous Information ALL NURSING DEPARTME... UNSCH PRN .XX SEE LABEL COMMENTS; Start 02/08/17 at 09:47; Stop 02/09/17 at 09:56; Status DC Lidocaine HCl (Xylocaine-Mpf 2% Inj) 10 ml ONCE STAT INFIL Last administered on 02/08/17 12:20; Start 02/08/17 at 12:20; Stop 02/08/17 at 12:21; Status DC Miscellaneous Information SPECIFIC LAB TO BE DRAWN:VANCO TROUGH DATE TO BE DR... ONCE ONCE .XX ; Start 02/08/17 at 23:45; Stop 02/08/17 at 23:46; Status Cancel Albuterol/ Ipratropium (Duoneb Neb) 1 ampule Q4HR NEB PRN NEB wheezing Last administered on 02/11/17 00:19; Start 02/08/17 at 15:45 Albuterol/ Ipratropium (Duoneb Neb) 1 ampule Q8HR ALT NEB NEB Last administered on 02/11/17 04:02; Start 02/08/17 at 20:00; Stop 02/11/17 at 05:48 ; Status DC Furosemide (Lasix Inj) 20 mg ONCE ONCE IV PUSH Last administered on 02/08/17 17:19; Start 02/08/17 at 16:15; Stop 02/08/17 at 16:16; Status DC Prednisone (Deltasone) 20 mg BID PO Last administered on 02/15/17 09:00; Start 02/08/17 at 21:00; Stop 02/15/17 at 10:50; Status DC Vancomycin HCl 1000 mg/Sodium Chloride 250 ml @ 250 mls/hr Q24H IV Last administered on 02/09/17 12:40; Start 02/09/17 at 12:00; Stop 02/09/17 at 14:27 ; Status DC Miscellaneous Information SPECIFIC LAB TO BE SRINIVAS... ONCE ONCE .XX ; Start 02/11 at 11:45; Stop 02/11/17 at 11:46; Status Cancel Miscellaneous Information SPECIFIC LAB TO BE SRINIVAS... ONCE ONCE .XX ; Start 02/11 at 11:45; Stop 02/11/17 at 11:45; Status DC Sodium Chloride 1,000 ml @ 84 mls/hr [id number] IV Last administered on 06:10; Start 02/09/17 at 18:00; Stop 02/10/17 at 10:02; Status DC Lorazepam (Ativan) 0.5 mg ONCE ONCE PO Last administered on 02/09/17 20:46; Start 02/09/17 at 20:30; Stop 02/09/17 at 20:32; Status DC Azithromycin 500 mg/Sodium Chloride 250 ml @ 250 mls/hr Q24H IV Last administered on 02/15/17 09:00; Start 02/10/17 at 09:00; Stop 02/15/17 at 10:57 ; Status DC Cefepime HCl 2000 mg/Sodium Chloride 100 ml @ 200 mls/hr Q8H IV Last administered on 02/10/17 12:07; Start 02/10/17 at 10:00; Stop 02/10/17 at 15:33 ; Status DC Potassium Chloride (KCl) 60 meq ONCE ONCE PO Last administered on 02/10/17 12 :05; Start 02/10/17 at 10:00; Stop 02/10/17 at 10:04; Status DC Oxycodone/ Acetaminophen (Percocet 5-325 Mg) 1 tab Q6H PRN PO PAIN 3-10 Last administered on 02/16/17 08:47; Start 02/10/17 at 12:00 Cefepime HCl 2000 mg/Sodium Chloride 100 ml @ 200 mls/hr Q12H IV Last administered on 02/16/17 14:21; Start 02/11/17 at 00:00 Furosemide (Lasix Inj) 20 mg ONCE ONCE IV PUSH Last administered on 02/10/17 18:48; Start 02/10/17 at 18:30; Stop 02/10/17 at 18:39; Status DC Metronidazole (Flagyl) 500 mg Q8HR PO Last administered on 02/15/17 04:51; Start 02/10/17 at 22:00; Stop 02/15/17 at 10:50; Status DC Potassium Chloride (KCl) 20 meq ONCE ONCE PO Last administered on 02/10/17 18 :48; Start 02/10/17 at 18:45; Stop 02/10/17 at 18:46; Status DC Lorazepam (Ativan) 0.25 mg ONCE ONCE PO Last administered on 02/10/17 19:49; Start 02/10/17 at 18:45; Stop 02/10/17 at 18:46; Status DC Temazepam (Restoril) 7.5 mg ONCE ONCE PO Last administered on 02/10/17 21:49 ; Start 02/10/17 at 19:00; Stop 02/10/17 at 19:01; Status DC Furosemide (Lasix Inj) 20 mg ONCE ONCE IV PUSH Last administered on 02/11/17 04:25; Start 02/11/17 at 04:15; Stop 02/11/17 at 04:20; Status DC Lorazepam (Ativan Inj) 0.5 mg ONCE ONCE IV PUSH Last administered on 04:26; Start 02/11/17 at 04:15; Stop 02/11/17 at 04:20; Status DC Potassium Bicarbonate (Effer-K Eff) 50 meq ONCE ONCE PO Last administered on 02/11/17 04:29; Start 02/11/17 at 04:15; Stop 02/11/17 at 04:20; Status DC Albuterol/ Ipratropium (Duoneb Neb) 1 ampule Q6HR NEB NEB Last administered on 02/15/17 05:16; Start 02/11/17 at 10:00; Stop 02/15/17 at 09:59; Status DC Furosemide (Lasix Inj) 20 mg ONCE ONCE IV PUSH Last administered on 02/11/17 06:13; Start 02/11/17 at 06:00; Stop 02/11/17 at 06:01; Status DC Lorazepam (Ativan) 0.5 mg Q8H PRN PO anxiety Last administered on 02/15/17 21: 45; Start 02/11/17 at 08:15 Furosemide (Lasix Inj) 40 mg BID@09,18 IV PUSH ; Start 02/11/17 at 18:00; Stop 02/11/17 at 18:00; Status DC Potassium Chloride (KCl) 50 meq ONCE ONCE PO ; Start 02/11/17 at 09:00; Stop 02/11/17 at 11:07; Status DC Potassium Chloride (KCl) 20 meq Q12HR PO Last administered on 02/16/17 08:39 ; Start 02/11/17 at 18:00 Miscellaneous Information Patient in critical care unit? Ass... [id number] .XX ; Start 02/11/17 at 09:15 Chlorhexidine Gluconate (Chlorhexidine 2% Cloth) 3 pack DAILY@04 TOPICAL Last administered on 02/16/17 04:00; Start 02/12/17 at 04:00; Stop 02/16/17 at 04: 01; Status DC Chlorhexidine Gluconate (Chlorhexidine 2% Cloth) 3 pack UNSCH PRN TOPICAL HYGIENIC CARE; Start 02/11/17 at 09:15; Stop 02/16/17 at 09:07; Status DC Potassium Chloride 100 ml @ 50 mls/hr BOLUS ONCE IV Last administered on 02/11 13:15; Start 02/11/17 at 11:15; Stop 02/11/17 at 13:14; Status DC Furosemide (Lasix Inj) 40 mg BID@09,18 IV PUSH Last administered on 02/16/17 08:36; Start 02/11/17 at 15:00; Stop 02/16/17 at 18:00 Iohexol (Omnipaque 350 Inj) 100 ml STK-MED ONCE IVCONTRAST Last administered on 02/11/17 16:34; Start 02/11/17 at 16:34; Stop 02/11/17 at 16:35; Status DC Gabapentin (Neurontin) 100 mg TID PO Last administered on 02/16/17 13:00; Start 02/13/17 at 13:00 Heparin Sodium/ Sodium Chloride 500 ml @ As Directed STK-MED ONCE .ROUTE Last administered on 02/14/17 09:34; Start 02/14/17 at 09:34; Stop 02/14/17 at 09:35 ; Status DC Verapamil HCl (Isoptin Inj) 5 mg STK-MED ONCE .ROUTE Last administered on 10:10; Start 02/14/17 at 09:34; Stop 02/14/17 at 09:35; Status DC Heparin Sodium (Porcine) (Heparin Inj) 10,000 units STK-MED ONCE .ROUTE Last administered on 02/14/17 10:10; Start 02/14/17 at 09:34; Stop 02/14/17 at 09:35 ; Status DC Nitroglycerin 5 ml @ As Directed STK-MED ONCE .ROUTE Last administered on 10:10; Start 02/14/17 at 09:34; Stop 02/14/17 at 09:35; Status DC Midazolam HCl (Versed Inj) 2 mg STK-MED ONCE .ROUTE ; Start 02/14/17 at 09:54; Stop 02/14/17 at 09:55; Status DC Fentanyl Citrate (fentaNYL INJ) 100 mcg STK-MED ONCE .ROUTE Last administered on 02/14/17 10:09; Start 02/14/17 at 09:55; Stop 02/14/17 at 09:56; Status DC Carvedilol (Coreg) 3.125 mg Q12HR PO Last administered on 02/16/17 08:38; Start 02/14/17 at 21:00 Iohexol (OMNIPAQUE 350 INJ (Pairer Odds)) 50 ml STK-MED ONCE OTHER ; Start at 12:06; Stop 02/14/17 at 12:07; Status DC Azithromycin (Zithromax) 500 mg DAILY PO Last administered on 02/16/17 08:38 ; Start 02/16/17 at 09:00 Furosemide (Lasix Inj) 40 mg DAILY IV PUSH ; Start 02/17/17 at 09:00 Urinary Catheter: No Vascular Central Line Catheter: No A/P Problem List: (1) Sepsis affecting skin ICD Code: A41.9 - Sepsis, unspecified organism (2) Cellulitis of left lower extremity ICD Code: L03.116 - Cellulitis of left lower limb Assessment and Plan This is a 56-year-old female medical history significant for hypertension and diabetes. She presented to the ER for diffuse lower extremity pain and swelling. Initially she started with a blister on her left heel and this progressed to cellulitis of the foot and ankle. Also reported some left elbow pain from overuse. Patient developed some SOB on 02/08, CXR was concerning for PNA. BNP was also elevated. The patient was placed back on abx for her PNA. Heart failure workup began on 02/10. Overnight on the she developed worsening SOB and was transferred to the ICU. She clinically improved after diuresis and placed on non-rebreather. Cardiac workup was ordered. Sepsis on admission secondary to left lower extremity cellulitis, concern for oligo arthritis. She is status post aspiration of the left knee which was not consistent with septic arthritis. The patient is currently afebrile, blood cultures negative to date. Synovial fluid knee and abscess of wrist with no growth. The patient was previously on vancomycin and Zosyn. CTA negative for PE , but showed extensive bilateral airspace disease, presumably infectious or inflammatory and moderate right and small left pleural effusions. Now on cefepime/azithro, infectious disease following Hypoxia: secondary to acute CHF exacerbation. much improved. Strict I&Os. on lasix 40mg IV q12hrs. Trop 0.03. Status post cardiac catheterization, unremarkable. Ejection fraction 35-40%. Discussed with Dr. Thompson, continue Coreg and lisinopril. Repeat echocardiogram as outpatient. 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 Stop prednisone. Acute CHF: EF 35-40%. lasix IV 40mg q12hrs, fluid restriction 1500ml/day, low sodium diet. cards following will need to be switched to oral hopefully tomorrow Acute renal failure-likely cardiorenal, continue Lasix, creatinine stable. Monitor BMP tomorrow. Switch Lasix to oral, possibly tomorrow. Hypokalemia: resolved. Macrocytic anemia: Likely related to alcohol abuse. See [facility] protocol. The patient had a EGD with biopsy done on 02/08 for her anemia. Per report 2 cm hiatal hernia noted, class a esophagitis, mild gastritis in the gastric atrium with multiple biopsies obtained, normal duodenal mucosa retroflexion was performed and normal. For now the plan is to await biopsy results, continue PPI , capsule endoscopy as an outpatient if continued drop hemoglobin. GI has signed off. Hypertension: Continue lisinopril daily, Vasotec and clonidine when necessary. Diabetes: Sliding scale, diabetic diet. HbA1C 5.4. BS elevated secondary to steroid use. Neuropathy/foot pain: pt describes her pain as "pins and needles" she does have some decreased sensation. Continue gabapentin 100mg po TID and titrate up slowly. COPD exacerbation: Continue prednisone 20 mg twice a day. on Cefepime and Azithromycin on 02/10. Anxiety & Insomnia: ativan 0.25 mg q6 prn, restoril for insomnia DVT prophylaxis: Heparin Discharge Planning Physical therapy occupational therapy move out of ICU Case management for outpatient follow-up and help medications Pete Fajardo DO Feb 16, 2017 16:43
--- NOTE | 2017-02-16 17:16 | HHI.IDPN ---
Subjective Subjective Remarks cath negative for flow limiting lesions On RA, doing well No fever Antibiotics azithro cefepime Allergies: Coded Allergies: procaine (Verified Allergy, Unknown, 02/04/17) Objective . Vital Signs Date Time Temp Pulse Resp B/P (MAP) Pulse Ox O2 Delivery O2 Flow Rate FiO2 02/16/17 12:00 98.3 76 17 100/60 (73) 95 02/16/17 09:47 16 02/16/17 08:15 98 Nasal Cannula 2.00 02/16/17 08:00 97.9 81 16 104/57 (73) 98 02/16/17 08:00 Room Air 02/16/17 04:49 97 Nasal Cannula 2.00 02/16/17 04:00 97 Nasal Cannula 2.00 02/16/17 04:00 73 02/16/17 04:00 98.2 73 13 92/55 (67) 97 02/16/17 00:00 98.1 77 13 112/65 (81) 99 02/16/17 00:00 99 Nasal Cannula 2.00 02/16/17 00:00 77 02/15/17 23:52 97 Nasal Cannula 2.00 02/15/17 22:00 81 02/15/17 20:06 96 Nasal Cannula 2.00 02/15/17 20:00 77 02/15/17 20:00 98.2 77 17 107/58 (74) 99 02/15/17 20:00 99 Nasal Cannula 2.00 . Laboratory Tests Test 02/15/17 03:48 White Blood Count 15.9 TH/MM3 Red Blood Count 2.91 MIL/MM3 Hemoglobin 10.5 GM/DL Hematocrit 31.2 % Mean Corpuscular Volume 107.2 FL Mean Corpuscular Hemoglobin 35.9 PG Mean Corpuscular Hemoglobin Concent 33.5 % Red Cell Distribution Width 15.1 % Platelet Count 513 TH/MM3 Mean Platelet Volume 8.8 FL Neutrophils (%) (Auto) 86.3 % Lymphocytes (%) (Auto) 6.6 % Monocytes (%) (Auto) 6.3 % Eosinophils (%) (Auto) 0.7 % Basophils (%) (Auto) 0.1 % Neutrophils # (Auto) 13.8 TH/MM3 Lymphocytes # (Auto) 1.1 TH/MM3 Monocytes # (Auto) 1.0 TH/MM3 Eosinophils # (Auto) 0.1 TH/MM3 Basophils # (Auto) 0.0 TH/MM3 CBC Comment DIFF FINAL Differential Comment Laboratory Tests Test 02/15/17 03:48 02/16/17 05:10 Blood Urea Nitrogen 29 MG/DL 34 MG/DL Creatinine 1.24 MG/DL 1.23 MG/DL Random Glucose 181 MG/DL 161 MG/DL Calcium Level 9.5 MG/DL 8.9 MG/DL Sodium Level 138 MEQ/L 139 MEQ/L Potassium Level 3.6 MEQ/L 3.6 MEQ/L Chloride Level 98 MEQ/L 101 MEQ/L Carbon Dioxide Level 30.0 MEQ/L 30.5 MEQ/L Anion Gap 10 MEQ/L 8 MEQ/L Estimat Glomerular Filtration Rate 45 ML/MIN 45 ML/MIN Imaging Last Impressions Chest X-Ray 02/11/17 0000 Signed Impressions: Service Date/Time: Saturday, February 11, 2017 04:20 - CONCLUSION: No significant interval change in bilateral pulmonary consolidation and left pleural effusion. Yogi Burrell MD CT Angiography 02/11/17 0000 Signed Impressions: Service Date/Time: Saturday, February 11, 2017 16:27 - CONCLUSION: 1. Extensive bilateral airspace disease, presumably infectious or inflammatory. 2. Moderate right and small left pleural effusions. 3. The pulmonary consolidation and pleural effusions appear larger than what can be seen on the comparison CT of the abdomen a few days ago. 4. Nonspecific subcarinal lymphadenopathy. 5. No pulmonary embolus. Rowdy Reyes MD Wrist X-Ray 02/07/17 0000 Signed Impressions: Service Date/Time: Tuesday, February 07, 2017 19:02 - CONCLUSION: Osteoarthritic change as described. Zhen Owen MD Aspiration 02/07/17 0000 Signed Impressions: Service Date/Time: Tuesday, February 07, 2017 16:38 - CONCLUSION: Uncomplicated aspiration as above. Ruy Pereira MD Knee MRI 02/06/17 0000 Signed Impressions: Service Date/Time: Monday, February 06, 2017 15:04 - CONCLUSION: 1. Joint effusion and subcutaneous edema. 2. No evidence of internal derangement Ruy Pereira MD Ankle MRI 02/06/17 0000 Signed Impressions: Service Date/Time: Monday, February 06, 2017 15:04 - CONCLUSION: 1. 7 mm cutaneous lesion superficial to the posterior calcaneus without extension into the deep tissues. 2. Probable disruption of the deltoid ligament with associated contusion in the medial talus. 3. Diffuse soft tissue swelling about the ankle in the subcutaneous tissues.. Renato Morales MD Abdomen/Pelvis CT 02/06/17 0000 Signed Impressions: Service Date/Time: Tuesday, February 07, 2017 01:15 - CONCLUSION: Lobular masses involving the left adrenal gland. Further characterization with chemical shift MRI suggested. Right renal cyst. Minimal nonspecific free pelvic fluid. Lung base infiltrates and effusions Rowdy Linder MD Abdomen X-Ray 02/06/17 0000 Signed Impressions: Service Date/Time: Monday, February 06, 2017 14:22 - CONCLUSION: Negative exam with no metallic foreign bodies identified. Zhen Owen MD Lower Extremity Ultrasound 02/04/17 0000 Signed Impressions: Service Date/Time: Saturday, February 04, 2017 14:49 - CONCLUSION: 1. No evidence of deep venous thrombosis. 2. Multiple moderate-sized Ronquillo's cyst. 3. Multiple lymph nodes in the left groin. Zhen Owen MD Physical Exam CONSTITUTIONAL/GENERAL: This is an adequately nourished patient, in no apparent distress. TUBES/LINES/DRAINS: SKIN: No jaundice, rashes, or lesions. Skin temperature appropriate. Not diaphoretic. EYES: Pupils equal and round and reactive. Extraocular motions intact. No scleral icterus. No injection or drainage. Fundi not examined. CARDIOVASCULAR: Regular rate and rhythm without murmurs, gallops, or rubs. No JVD. Peripheral pulses symmetric. RESPIRATORY/CHEST: Symmetric, unlabored respirations. Clear to auscultation. Breath sounds equal bilaterally. GASTROINTESTINAL: Abdomen soft, non-tender, nondistended. No hepato-splenomegaly , or palpable masses. No guarding. Bowel sounds present. MUSCULOSKELETAL: Extremities without clubbing, cyanosis, no edema. + three bark cifuentes NEUROLOGICAL: Awake and alert. Motor and sensory grossly within normal limits. Follows commands. Clear speech Moves all extremities. PSYCHIATRIC: pleasant and cooperative Assessment & Plan Remarks Febrile illness with oligoarthrits: differentila dx include septic arthrits ( unusual to present simultaneously in multiple joints unless metastatic infection ) vs CTD - negative clx fluid cell count and diff not cw septic arthritis disruption of the deltoid ligament with associated contusion in the medial talus Fever : resolved Suspected PNA, sp tx 7 days of cefepime, azythro CTA negative for PE, but showed extensive bilateral airspace disease, presumably infectious or inflammatory and moderate right and small left pleural effusions. 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
[2017-02-16] MEDS: LORazepam 0.5 MG TAB PO PRN (21:38)
[2017-02-17] VITALS (9 sets, daily range): BP systolic 92–114; BP diastolic 50–65; PULSE 77–89; RESP 16–17; TEMP 96.9–98.2; O2SAT 94–99
[2017-02-17 06:47] LABS: ANION GAP 7 MEQ/L (5-15); AST (GOT) 19 U/L (15-37); BICARBONATE 25.6 MEQ/L (21.0-32.0); BLOOD UREA NITROGEN 35 MG/DL (7-18); CHLORIDE 105 MEQ/L (98-107); GLOMERULAR FILTRATION RATE 50 ML/MIN (>89); POTASSIUM 4.3 MEQ/L (3.5-5.1); SODIUM (NA) 138 MEQ/L (136-145)
[2017-02-17 06:58] LABS: ALKALINE PHOSPHATASE 80 U/L (45-117); ALT (GPT) 23 U/L (10-53); FREE T4 1.08 NG/DL (0.76-1.46); TOTAL BILIRUBIN ADULT 0.2 MG/DL (0.2-1.0)
[2017-02-17 07:08] LABS: AUTOMATED NEUTROPHIL # 9.4 TH/MM3 (1.8-7.7); BASOPHIL % 0.1 % (0.0-2.0); EOSINOPHIL # 0.5 TH/MM3 (0-0.4); EOSINOPHIL % 3.8 % (0.0-4.0); HEMATOCRIT 33.5 % (35.0-46.0); HEMO FLAGS DIFF FINAL; LYMPH % 13.7 % (9.0-44.0); LYMPHOCYTE # 1.7 TH/MM3 (1.0-4.8); MEAN CORPUSCULAR HEMOGLOBIN 35.1 PG (27.0-34.0); MEAN CORPUSCULAR HGB CONC 32.8 % (32.0-36.0); MONO % 7.4 % (0.0-8.0); PLATELET COUNT 452 TH/MM3 (150-450); RED BLOOD COUNT 3.13 MIL/MM3 (4.00-5.30); RED CELL DISTRIBUTION WIDTH 15.2 % (11.6-17.2); WHITE BLOOD COUNT 12.6 TH/MM3 (4.0-11.0)
[2017-02-17] MEDS: INSULIN ASPART SUPPLEMENTAL SCALE SQ SCH ×4 (08:00→21:00)
[2017-02-17] MEDS: NICOTINE 21 MG/24 HR PATCH T-DERMAL SCH (08:59)
[2017-02-17] MEDS: HEPARIN SODIUM - SQ 10,000 UNITS/ML VIAL SQ SCH ×2 (09:00→21:00)
[2017-02-17] MEDS: PANTOPRAZOLE SOD 40 MG DELAYED RELEASE TAB PO SCH (09:00)
[2017-02-17] MEDS: SODIUM CHLORIDE 0.9% FLUSH 10 ML FLUSH IV FLUSH SCH ×2 (09:00→21:31)
[2017-02-17] MEDS ORDERED: FUROSEMIDE 40 MG/4 ML VIAL IV PUSH SCH (09:00)
[2017-02-17] MEDS: DOCUSATE SODIUM 50 MG/SENNA 8.6 MG TAB PO SCH ×2 (09:00→21:00)
[2017-02-17] MEDS: REMOVE OLD PATCH T-DERMAL SCH (09:00)
[2017-02-17] MEDS: CARVEDILOL 3.125 MG TAB PO SCH (09:04)
[2017-02-17] MEDS: LISINOPRIL 20 MG TAB PO SCH (09:05)
[2017-02-17] MEDS: POTASSIUM CHLORIDE 20 MEQ CONTROLLED RELEASE TAB PO SCH ×2 (09:06→21:23)
[2017-02-17] MEDS: THIAMINE HCL 100 MG TAB PO SCH (09:06)
[2017-02-17] MEDS: GABAPENTIN 100 MG CAP PO SCH ×3 (09:06→18:00)
[2017-02-17] MEDS: oxyCODONE/ACETAMINOPHEN 5 MG/325 MG TAB PO PRN ×2 (09:07→21:29)
[2017-02-17] MEDS ORDERED: NICO21DI25 T-DERMAL (11:46)
[2017-02-17] MEDS ORDERED: LISI20TA PO (11:47)
[2017-02-17] MEDS ORDERED: CARV3.125 PO (11:50)
[2017-02-17] MEDS ORDERED: LISI10TA PO (11:51)
--- NOTE | 2017-02-17 11:52 | HHI.DCPOC ---
Discharge Care Plan Diagnosis: (1) Cellulitis of left lower extremity (2) Sepsis affecting skin (3) Left wrist pain (4) Hypokalemia (5) Bilateral pulmonary infiltrates on chest x-ray (6) Tobacco abuse (7) Cardiomyopathy (8) COPD exacerbation (9) Acute systolic heart failure Goals to Promote Your Health * To prevent worsening of your condition and complications * To maintain your health at the optimal level Directions to Meet Your Goals Take your medications as prescribed Follow your dietary instruction Follow activity as directed Keep your appointments as scheduled Take your immunizations and boosters as scheduled If your symptoms worsen call your PCP, if no PCP go to Urgent Care Center or Emergency Room Smoking is Dangerous to Your Health. Avoid second hand smoke Call the 24-hour hour crisis hotline for domestic abuse at Manav Torres MD Feb 17, 2017 11:52
--- NOTE | 2017-02-17 11:58 | HHI.DS ---
Discharge Summary Admission Date Feb 04, 2017 at 17:13 Discharge Date: Feb 18, 2017 Admitting Diagnosis left lower extremity cellulitis, sepsis (1) Sepsis affecting skin ICD Code: A41.9 - Sepsis, unspecified organism Diagnosis: Principal (2) Cellulitis of left lower extremity ICD Code: L03.116 - Cellulitis of left lower limb Diagnosis: Principal (3) Steroid-induced hyperglycemia ICD Code: R73.9 - Hyperglycemia, unspecified; T38.0X5A - Adverse effect of glucocorticoids and synthetic analogues, initial encounter Diagnosis: Principal (4) Hypokalemia ICD Code: E87.6 - Hypokalemia Diagnosis: Principal Status: Resolved (5) COPD exacerbation ICD Code: J44.1 - Chronic obstructive pulmonary disease with (acute) exacerbation Status: Resolved (6) Bilateral pulmonary infiltrates on chest x-ray ICD Code: R91.8 - Other nonspecific abnormal finding of lung field Diagnosis: Principal Status: Resolved (7) Tobacco abuse ICD Code: Z72.0 - Tobacco use Diagnosis: Principal Status: Chronic (8) Cardiomyopathy ICD Code: I42.9 - Cardiomyopathy, unspecified Diagnosis: Principal Status: Acute (9) Acute systolic heart failure ICD Code: I50.21 - Acute systolic (congestive) heart failure Diagnosis: Principal Status: Resolved (10) Impaired ambulation ICD Code: R26.2 - Difficulty in walking, not elsewhere classified Diagnosis: Principal Status: Acute Procedures MINDA THOMPSON DO DATE: 02/14/2017 PROCEDURE Left heart catheterization, right heart catheterization, coronary angiogram, ultrasound-guided access. PREPROCEDURE DIAGNOSIS Acute systolic heart failure, new cardiomyopathy. POSTPROCEDURE DIAGNOSIS Nonischemic cardiomyopathy, ejection fraction 35-40%. MEDICATION Fentanyl 50 mcg, heparin 2300 units, verapamil 2.5 mg, nitro 200 mcg. CONTRAST USED 20 cc. FLUORO TIME 2.2 minutes. SEDATION Moderate sedation zero minutes. ESTIMATED BLOOD LOSS 10 cc. PROCEDURAL SUMMARY Sunday is a pleasant 56-year-old female who presented to [facility] and was found to have acute systolic heart failure with a new cardiomyopathy. Because of this she was recommended cardiac catheterization to rule out significant ischemia as a cause. The risks, benefits and alternatives were explained to her and she consented as such. She was brought to the lab and prepped in the usual sterile fashion. The right radial artery was accessed using a modified Seldinger technique and placement of a 5/6 Swazi Slender sheath. This was easily aspirated and flushed. The right brachial artery was attempted to get access with ultrasound guidance but was unable, most likely due to her significant diuresis over the past few days. A JR4 was advanced over a J-wire to the ascending aorta and across the aortic valve for measurement of left ventricular pressures. This was pulled back across the aortic valve showing no significant gradient of aortic stenosis. The JR4 was used for selective angiography of the right coronary artery. This was exchanged out for a JL 3.5 which was used for selective angiography of the left coronary artery. The JL 3.5 was removed over a J-wire. The right femoral vein was accessed using a modified Seldinger technique with ultrasound guidance and placement of a 7 Swazi sheath. This was easily aspirated and flushed. A Cushing-Brianna catheter was advanced to a wedge position and hemodynamics as well as oxygen saturations were measured upon pullback in the standard fashion. The Cushing-Brianna catheter was removed. ACT was drawn and in an appropriate range so the right femoral sheath was removed. A radial band was placed over the arteriotomy site for hemostasis. The patient left the laboratory engineer cardiovascularly stable. FINDINGS CORONARY ANGIOGRAPHY Left Main: Normal size vessel with no significant disease. It trifurcates into an LAD, ramus and circumflex. LAD: Small to moderate size vessel with mild luminal irregularities throughout the midportion, but no significant disease. It gives off one diagonal which is overall small but has no significant disease. Ramus: Moderate size vessel with no significant disease. Left Circumflex: Normal size vessel with mild luminal irregularities throughout the midportion. It gives off one major obtuse marginal with no significant disease. RCA: Normal size vessel with no significant disease. It is a dominant vessel in nature. PDA has mild tortuosity but no disease. HEMODYNAMICS RA 5. RV 27/4. RVEDP 7. PA 25/9, mean PA 15. Wedge 11. LVEDP 16. Cardiac output 4.7. Cardiac index 2.7. IMPRESSION 1. Acute systolic heart failure, ejection fraction 35-40%. 2. New cardiomyopathy, nonischemic in nature. 3. Tobacco abuse. RECOMMENDATIONS 1. Sunday appears to have acute systolic heart failure with a new cardiomyopathy and was found to be nonischemic in nature. 2. Overall she has been well-diuresed and has just mildly elevated left filling pressures. 3. She has no significant coronary artery disease as a cause for her cardiomyopathy. 4. She will be started on appropriate heart failure medication and will have to watch her creatinine as this has been mildly elevated over the past few days. 5. She should have a repeat echocardiogram in the next 3-6 months to evaluate for resolution of her cardiomyopathy. 6. Tobacco cessation. Thank you for allowing me to see Betty Sunday. If there are any questions, please do not hesitate to call. EGD (02/08/17)--Class A esophagitis, 2 cm hiatal hernia, mild gastritis in gastric antrum with multiple biopsies obtained, normal duodenal mucosa retroflexion was performed and normal. Brief History - From Admission This is a 56-year-old female with history of hypertension and borderline diabetes mellitus. She complained of 10 day history of left lower extremity pain and swelling. Started with a blister in the left heel. She then noted progressive pain and swelling of the left foot, ankle and all the way to the knee associated with fever and chills. No purulent discharge. She also complained of left elbow pain from overuse as she was limping and had to use her left upper extremity more than usual. Ultrasound of the lower extremity revealed no DVT. She has been started on IV vancomycin and Zosyn in the emergency department. All other systems reviewed negative CBC/BMP: 02/17/17 0551 02/17/17 0551 Significant Findings Laboratory Tests Test 02/15/17 03:48 02/16/17 05:10 02/17/17 05:51 White Blood Count 15.9 TH/MM3 (4.0-11.0) 12.6 TH/MM3 (4.0-11.0) Red Blood Count 2.91 MIL/MM3 (4.00-5.30) 3.13 MIL/MM3 (4.00-5.30) Hemoglobin 10.5 GM/DL (11.6-15.3) 11.0 GM/DL (11.6-15.3) Hematocrit 31.2 % (35.0-46.0) 33.5 % (35.0-46.0) Mean Corpuscular Volume 107.2 FL (80.0-100.0) 107.0 FL (80.0-100.0) Mean Corpuscular Hemoglobin 35.9 PG (27.0-34.0) 35.1 PG (27.0-34.0) Platelet Count 513 TH/MM3 (150-450) 452 TH/MM3 (150-450) Neutrophils (%) (Auto) 86.3 % (16.0-70.0) 75.0 % (16.0-70.0) Lymphocytes (%) (Auto) 6.6 % (9.0-44.0) Neutrophils # (Auto) 13.8 TH/MM3 (1.8-7.7) 9.4 TH/MM3 (1.8-7.7) Monocytes # (Auto) 1.0 TH/MM3 (0-0.9) Blood Urea Nitrogen 29 MG/DL (7-18) 34 MG/DL (7-18) 35 MG/DL (7-18) Creatinine 1.24 MG/DL (0.50-1.00) 1.23 MG/DL (0.50-1.00) 1.13 MG/DL (0.50-1.00) Random Glucose 181 MG/DL (74-106) 161 MG/DL (74-106) 170 MG/DL (74-106) Estimat Glomerular Filtration Rate 45 ML/MIN (>89) 45 ML/MIN (>89) 50 ML/MIN (>89) Eosinophils # (Auto) 0.5 TH/MM3 (0-0.4) Albumin 2.6 GM/DL (3.4-5.0) Imaging Last Impressions Chest X-Ray 02/11/17 0000 Signed Impressions: Service Date/Time: Saturday, February 11, 2017 04:20 - CONCLUSION: No significant interval change in bilateral pulmonary consolidation and left pleural effusion. Yogi Burrell MD CT Angiography 02/11/17 0000 Signed Impressions: Service Date/Time: Saturday, February 11, 2017 16:27 - CONCLUSION: 1. Extensive bilateral airspace disease, presumably infectious or inflammatory. 2. Moderate right and small left pleural effusions. 3. The pulmonary consolidation and pleural effusions appear larger than what can be seen on the comparison CT of the abdomen a few days ago. 4. Nonspecific subcarinal lymphadenopathy. 5. No pulmonary embolus. Rowdy Reyes MD Wrist X-Ray 02/07/17 Signed Impressions: Service Date/Time: Tuesday, February 07, 2017 19:02 - CONCLUSION: Osteoarthritic change as described. Zhen Owen MD Aspiration 02/07/17 Signed Impressions: Service Date/Time: Tuesday, February 07, 2017 16:38 - CONCLUSION: Uncomplicated aspiration as above. Ruy Pereira MD Knee MRI 02/06/17 Signed Impressions: Service Date/Time: Monday, February 06, 2017 15:04 - CONCLUSION: 1. Joint effusion and subcutaneous edema. 2. No evidence of internal derangement Ruy Pereira MD Ankle MRI 02/06/17 Signed Impressions: Service Date/Time: Monday, February 06, 2017 15:04 - CONCLUSION: 1. 7 mm cutaneous lesion superficial to the posterior calcaneus without extension into the deep tissues. 2. Probable disruption of the deltoid ligament with associated contusion in the medial talus. 3. Diffuse soft tissue swelling about the ankle in the subcutaneous tissues.. Renato Morales MD Abdomen/Pelvis CT 02/06/17 Signed Impressions: Service Date/Time: Tuesday, February 07, 2017 01:15 - CONCLUSION: Lobular masses involving the left adrenal gland. Further characterization with chemical shift MRI suggested. Right renal cyst. Minimal nonspecific free pelvic fluid. Lung base infiltrates and effusions Rowdy Linder MD Abdomen X-Ray 02/06/17 Signed Impressions: Service Date/Time: Monday, February 06, 2017 14:22 - CONCLUSION: Negative exam with no metallic foreign bodies identified. Zhen Owen MD Lower Extremity Ultrasound 02/04/17 Signed Impressions: Service Date/Time: Saturday, February 04, 2017 14:49 - CONCLUSION: 1. No evidence of deep venous thrombosis. 2. Multiple moderate-sized Ronquillo's cyst. 3. Multiple lymph nodes in the left groin. Zhen Owen MD PE at Discharge GENERAL: Awake alert and oriented talkative and cooperative SKIN: Warm and dry. HEAD: Atraumatic. Normocephalic. EYES: Pupils equal and round. No scleral icterus. No injection or drainage. ENT: No nasal bleeding or discharge. Mucous membranes pink and moist. NECK: Trachea midline. No JVD. CARDIOVASCULAR: Regular rate and rhythm. S1 and S2 no S3-S4 no heave or thrill or rub or gallop RESPIRATORY: No accessory muscle use. Clear to auscultation. Breath sounds equal bilaterally. GASTROINTESTINAL: Abdomen soft, non-tender, nondistended. Hepatic and splenic margins not palpable. MUSCULOSKELETAL: Extremities without clubbing, cyanosis, or edema. No obvious deformities. NEUROLOGICAL: Awake and alert. No obvious cranial nerve deficits. Motor grossly within normal limits. Five out of 5 muscle strength in the arms and legs. Normal speech. PSYCHIATRIC: Appropriate mood and affect; insight and judgment normal. Somewhat anxious Pt update on day of discharge Patient states feels better. Denies chest pain, sob. able to ambulate with PT this am. Bp slightly lower, held am Lasix. Case management will 8 patient to obtain a blue card prior to discharge. The patient was instructed to follow-up at [facility]. The patient will also need outpatient pulmonary, GI and podiatry follow-up. Hospital Course This is a 56-year-old female medical history significant for hypertension and diabetes. She presented to the ER for diffuse lower extremity pain and swelling. Initially she started with a blister on her left heel and this progressed to cellulitis of the foot and ankle. Also reported some left elbow pain from overuse. Patient developed some SOB on 02/08, CXR was concerning for PNA. BNP was also elevated. The patient was placed back on abx for her PNA. Heart failure workup began on 02/10. Overnight on the she developed worsening SOB and was transferred to the ICU. She clinically improved after diuresis and placed on non-rebreather. Cardiac workup was ordered and it showed an individual fraction of 30-35%, cardiology was consulted. The patient diagnosed with a new onset cardiomyopathy. The patient is status post treatment with IV Lasix with marked improvement. The patient on day of discharge was satting 98% on room air. Patient status post acute respiratory failure with hypoxemia secondary to acute systolic CHF exacerbation and COPD axis patient, which was treated with IV diuretics and IV steroids tapered to prednisone which was discontinued prior to discharge. The patient status post post treatment with IV cefepime and IV azithromycin for suspected pneumonia. CT negative for PE but it showed extensive bilateral airspace disease presumably infectious or inflammatory and moderate right and small left pleural effusions which were likely secondary to CHF exacerbation. Patient was seen prior to discharge by PT who recommended no PT upon discharge. However recommended a wheeled walker and a shower chair which were prescribed. Acute renal failure-likely cardiorenal, creatinine was monitored during hospital stay, treated with Lasix and slowly improving. Creatinine down to 1.13 on day of discharge. BMP monitored throughout hospital stay. Hypokalemia: Likely secondary to IV Lasix use. Replaced and monitored. Macrocytic anemia: Likely related to alcohol abuse/patient was placed on CIWA protocol.. The patient had a EGD with biopsy done on 02/08 for her anemia. Per report 2 cm hiatal hernia noted, class a esophagitis, mild gastritis in the gastric atrium with multiple biopsies obtained, normal duodenal mucosa retroflexion was performed and normal. Pathology reported noninflammatory gastric antral mucosal biopsies with focal loss of epithelial mucin and associated degenerative epithelial changes suggestive of a healing erosion, negative for intestinal metaplasia and dysplasia. Zora stain negative for Helicobacter. The plan is for the patient to follow-up as an outpatient with GI , continue PPI, capsule endoscopy as an outpatient if continued drop hemoglobin. Hypertension: The patient also with lisinopril, Vasotec and clonidine as necessary. The patient was later started on carvedilol 3.125 milligrams by mouth daily. Given the patient's blood pressure became borderline hypotensive prior to discharge, the dose of lisinopril was increased to 10 mg by mouth daily , and the patient was discharged on Coreg to be held the case a systolic blood pressure was less than 160 or heart rate was less than 60. This was discussed with the patient and written on prescription patient indication. Patient also had elevated blood sugars with hemoglobin A1c of 5.4. Diabetes ruled out. Blood sugar elevation likely related to steroid use. Neuropathy/foot pain: pt describes her pain as "pins and needles" she does have some decreased sensation. Continue gabapentin 100mg po TID and titrate up slowly. COPD exacerbation: The patient status post cefepime and azithromycin treatment as well as steroid treatment. The patient will need to follow-up as an outpatient with her primary physician and possible referral to pulmonology for pulmonary function tests. Anxiety & Insomnia: Treated with ativan 0.25 mg q6 prn, restoril for insomnia Left wrist pain: In surgery consulted. The patient underwent left wrist aspiration with synovial fluid not concordant with septic arthritis. DVT prophylaxis: Placed on heparin SQ. Pt Condition on Discharge: Stable Discharge Disposition: Discharge Home Discharge Time: > 30 minutes Discharge Instructions Follow up Referrals: PCP Follow-up - 1 Week with [facility] New Medications: Lisinopril-Hctz (Lisinopril-Hctz) 10-12.5 Mg Tab 1 TAB PO DAILY for Blood Pressure Management, #30 TAB 0 Refills Carvedilol (Coreg) 3.125 Mg Tab 3.125 MG PO Q12HR for cardiomyopathy, #62 TAB hold if systolic blood pressure less [id number] or heart rate less than 60. Nicotine (Eq Nicotine) 21 Mg/24 Hour Dis 1 PATCH T-DERMAL DAILY for tobacco abuse, #30 PATCH Discontinued Medications: Lisinopril-Hctz (Lisinopril-Hctz) 20-12.5 Mg Tab 1 TAB PO DAILY for Blood Pressure Management, #30 TAB 0 Refills Manav Torres MD Feb 17, 2017 11:58
[2017-02-17] MEDS ORDERED: LISI10TA3 PO (12:21)
[2017-02-17] MEDS ORDERED: FURO20TA PO (12:21)
[2017-02-17] MEDS ORDERED: SODIUM CHLOR 0.9% 250 ML INJ 250 ML IV ONE ×2 (12:45→15:45)
--- NOTE | 2017-02-17 15:44 | HHI.PR ---
Subjective Remarks late entry - patient seen earlier at 11:58 am Patient denies cp/sob. BP low Objective Vitals Vital Signs Date Time Temp Pulse Resp B/P (MAP) Pulse Ox O2 Delivery O2 Flow Rate FiO2 02/17/17 14:54 97.2 85 17 95/50 (65) 98 02/17/17 14:38 98 02/17/17 12:00 97.3 83 17 100/52 (68) 98 02/17/17 08:00 97.6 89 17 98/51 (67) 98 02/17/17 07:32 97 02/17/17 00:54 96.9 77 16 114/60 (78) 94 02/16/17 20:00 98.1 83 16 118/56 (76) 96 02/16/17 16:01 98.2 80 23 108/60 (76) I/O 02/16/17 02/16/17 02/16/17 02/17/17 02/17/17 02/17/17 07:00 15:00 23:00 07:00 15:00 23:00 Intake Total 340 ml 960 ml 250 ml Output Total 1000 ml Balance -660 ml 960 ml 250 ml Intake Oral 240 ml 960 ml IV Total 100 ml 250 ml Output Urine Total 1000 ml # Voids 4 2 # Bowel Movements 1 Result Diagram: 02/17/17 0551 02/17/17 0551 Imaging Last Impressions Chest X-Ray 02/11/17 0000 Signed Impressions: Service Date/Time: Saturday, February 11, 2017 04:20 - CONCLUSION: No significant interval change in bilateral pulmonary consolidation and left pleural effusion. Yogi Burrell MD CT Angiography 02/11/17 0000 Signed Impressions: Service Date/Time: Saturday, February 11, 2017 16:27 - CONCLUSION: 1. Extensive bilateral airspace disease, presumably infectious or inflammatory. 2. Moderate right and small left pleural effusions. 3. The pulmonary consolidation and pleural effusions appear larger than what can be seen on the comparison CT of the abdomen a few days ago. 4. Nonspecific subcarinal lymphadenopathy. 5. No pulmonary embolus. Rowdy Reyes MD Wrist X-Ray 02/07/17 0000 Signed Impressions: Service Date/Time: Tuesday, February 07, 2017 19:02 - CONCLUSION: Osteoarthritic change as described. Zhen Owen MD Aspiration 02/07/17 0000 Signed Impressions: Service Date/Time: Tuesday, February 07, 2017 16:38 - CONCLUSION: Uncomplicated aspiration as above. Ruy Pereira MD Knee MRI 02/06/17 0000 Signed Impressions: Service Date/Time: Monday, February 06, 2017 15:04 - CONCLUSION: 1. Joint effusion and subcutaneous edema. 2. No evidence of internal derangement Ruy Pereira MD Ankle MRI 02/06/17 0000 Signed Impressions: Service Date/Time: Monday, February 06, 2017 15:04 - CONCLUSION: 1. 7 mm cutaneous lesion superficial to the posterior calcaneus without extension into the deep tissues. 2. Probable disruption of the deltoid ligament with associated contusion in the medial talus. 3. Diffuse soft tissue swelling about the ankle in the subcutaneous tissues.. Renato Morales MD Abdomen/Pelvis CT 02/06/17 0000 Signed Impressions: Service Date/Time: Tuesday, February 07, 2017 01:15 - CONCLUSION: Lobular masses involving the left adrenal gland. Further characterization with chemical shift MRI suggested. Right renal cyst. Minimal nonspecific free pelvic fluid. Lung base infiltrates and effusions Rowdy Linder MD Abdomen X-Ray 02/06/17 Signed Impressions: Service Date/Time: Monday, February 06, 2017 14:22 - CONCLUSION: Negative exam with no metallic foreign bodies identified. Zhen Owen MD Lower Extremity Ultrasound 02/04/17 0000 Signed Impressions: Service Date/Time: Saturday, February 04, 2017 14:49 - CONCLUSION: 1. No evidence of deep venous thrombosis. 2. Multiple moderate-sized Ronquillo's cyst. 3. Multiple lymph nodes in the left groin. Zhen Owen MD Objective Remarks GENERAL: Awake alert and oriented talkative and cooperative SKIN: Warm and dry. HEAD: Atraumatic. Normocephalic. EYES: Pupils equal and round. No scleral icterus. No injection or drainage. ENT: No nasal bleeding or discharge. Mucous membranes pink and moist. NECK: Trachea midline. No JVD. CARDIOVASCULAR: Regular rate and rhythm. S1 and S2 no S3-S4 no heave or thrill or rub or gallop RESPIRATORY: No accessory muscle use. Clear to auscultation. Breath sounds equal bilaterally. GASTROINTESTINAL: Abdomen soft, non-tender, nondistended. Hepatic and splenic margins not palpable. MUSCULOSKELETAL: Extremities without clubbing, cyanosis, or edema. No obvious deformities. NEUROLOGICAL: Awake and alert. No obvious cranial nerve deficits. Motor grossly within normal limits. Five out of 5 muscle strength in the arms and legs. Normal speech. PSYCHIATRIC: Appropriate mood and affect; insight and judgment normal. Calm Procedures MINDA THOMPSON DO DATE: 02/14/2017 PROCEDURE Left heart catheterization, right heart catheterization, coronary angiogram, ultrasound-guided access. PREPROCEDURE DIAGNOSIS Acute systolic heart failure, new cardiomyopathy. POSTPROCEDURE DIAGNOSIS Nonischemic cardiomyopathy, ejection fraction 35-40%. IMPRESSION 1. Acute systolic heart failure, ejection fraction 35-40%. 2. New cardiomyopathy, nonischemic in nature. 3. Tobacco abuse. RECOMMENDATIONS 1. Sunday appears to have acute systolic heart failure with a new cardiomyopathy and was found to be nonischemic in nature. 2. Overall she has been well-diuresed and has just mildly elevated left filling pressures. 3. She has no significant coronary artery disease as a cause for her cardiomyopathy. 4. She will be started on appropriate heart failure medication and will have to watch her creatinine as this has been mildly elevated over the past few days. 5. She should have a repeat echocardiogram in the next 3-6 months to evaluate for resolution of her cardiomyopathy. 6. Tobacco cessation. Thank you for allowing me to see Betty Sunday. If there are any questions, please do not hesitate to call. EGD (02/08/17)--Class A esophagitis, 2 cm hiatal hernia, mild gastritis in gastric antrum with multiple biopsies obtained, normal duodenal mucosa retroflexion was performed and normal. Medications and IVs Current Medications Medications (Trade) Dose Ordered Sig/Halie Route Start Time Stop Time Status Last Admin (Prinivil) 20 mg DAILY PO 02/05/17 09:00 Future Hold 02/17/17 09:05 (Vasotec Inj) 1.25 mg Q6H PRN IV PUSH 02/04/17 17:15 (Catapres) 0.1 mg Q6H PRN PO 02/04/17 17:15 02/08/17 13:17 (Vitamin B1) 100 mg DAILY PO 02/05/17 09:00 02/17/17 09:06 (Ativan Inj) 1 mg Q4H PRN IV PUSH 02/04/17 17:30 (Ativan) 2 mg Q2H PRN PO 02/04/17 17:30 02/08/17 21:24 (Ativan Inj) 2 mg Q2H PRN IV PUSH 02/04/17 17:30 02/11/17 21:55 (Ativan Inj) 2 mg Q1H PRN IV PUSH 02/04/17 17:30 (Ativan Inj) 2 mg Q15M PRN IV PUSH 02/04/17 17:30 (Haldol Inj) 2 mg Q15M PRN IM 02/04/17 17:30 (NS Flush) 2 ml UNSCH PRN IV FLUSH 02/04/17 17:30 (NS Flush) 2 ml BID IV FLUSH 02/04/17 21:00 02/17/17 09:00 (Tylenol) 650 mg Q4H PRN PO 02/04/17 17:30 02/15/17 14:55 (Zofran Inj) 4 mg Q6H PRN IVP 02/04/17 17:30 02/11/17 04:52 (Sharla-Colace) 1 tab BID PO 02/04/17 21:00 02/16/17 08:38 (Milk Of Magnesia Liq) 30 ml Q12H PRN PO 02/04/17 17:30 (Senokot) 17.2 mg Q12H PRN PO 02/04/17 17:30 (Dulcolax Supp) 10 mg DAILY PRN RECTAL 02/04/17 17:30 (Lactulose Liq) 30 ml DAILY PRN PO 02/04/17 17:30 (Habitrol 21 Mg Patch.24 Hr) 1 patch DAILY T-DERMAL 02/05/17 09:00 02/17/17 08:59 Miscellaneous Information 1 DAILY T-DERMAL 02/05/17 09:00 02/17/17 09:00 (D50w (Vial) Inj) 50 ml UNSCH PRN IV PUSH 02/04/17 17:30 (Glucagon Inj) 1 mg UNSCH PRN OTHER 02/04/17 17:30 (NovoLOG SUPPLEMENTAL SCALE) 1 ACHS SLIDING SCALE SQ 02/04/17 21:00 02/15/17 18:15 (Heparin Inj) 5,000 units Q12HR SQ 02/04/17 21:00 Future hold 02/09/17 08:56 (Protonix) 40 mg DAILY PO 02/06/17 11:00 02/16/17 08:39 (Duoneb Neb) 1 ampule Q4HR NEB PRN NEB 02/08/17 15:45 02/11/17 00:19 (Percocet 5-325 Mg) 1 tab Q6H PRN PO 02/10/17 12:00 02/17/17 09:07 (Ativan) 0.5 mg Q8H PRN PO 02/11/17 08:15 02/16/17 21:38 (KCl) 20 meq Q12HR PO 02/11/17 18:00 02/17/17 09:06 Miscellaneous Information Patient in critical care unit? Ass... [id number] .XX 02/11/17 09:15 (Neurontin) 100 mg TID PO 02/13/17 13:00 02/17/17 09:06 (Coreg) 3.125 mg Q12HR PO 02/14/17 21:00 Future Hold 02/17/17 09:04 (Lasix Inj) 40 mg DAILY IV PUSH 02/17/17 09:00 Future Hold A/P Problem List: (1) Sepsis affecting skin ICD Code: A41.9 - Sepsis, unspecified organism (2) Cellulitis of left lower extremity ICD Code: L03.116 - Cellulitis of left lower limb (3) Steroid-induced hyperglycemia ICD Code: R73.9 - Hyperglycemia, unspecified; T38.0X5A - Adverse effect of glucocorticoids and synthetic analogues, initial encounter (4) Hypokalemia ICD Code: E87.6 - Hypokalemia Status: Resolved (5) COPD exacerbation ICD Code: J44.1 - Chronic obstructive pulmonary disease with (acute) exacerbation Status: Resolved (6) Bilateral pulmonary infiltrates on chest x-ray ICD Code: R91.8 - Other nonspecific abnormal finding of lung field Status: Resolved (7) Tobacco abuse ICD Code: Z72.0 - Tobacco use Status: Chronic (8) Cardiomyopathy ICD Code: I42.9 - Cardiomyopathy, unspecified Status: Acute (9) Acute systolic heart failure ICD Code: I50.21 - Acute systolic (congestive) heart failure Status: Resolved (10) Hypotension ICD Code: I95.9 - Hypotension, unspecified Assessment and Plan This is a 56-year-old female medical history significant for hypertension and diabetes. She presented to the ER for diffuse lower extremity pain and swelling. Initially she started with a blister on her left heel and this progressed to cellulitis of the foot and ankle. Also reported some left elbow pain from overuse. Patient developed some SOB on 02/08, CXR was concerning for PNA. BNP was also elevated. The patient was placed back on abx for her PNA. Heart failure workup began on 02/10. Overnight on the she developed worsening SOB and was transferred to the ICU. She clinically improved after diuresis and placed on non-rebreather. Cardiac workup was ordered. Sepsis on admission secondary to left lower extremity cellulitis, concern for oligo arthritis. She is status post aspiration of the left knee which was not consistent with septic arthritis. The patient is currently afebrile, blood cultures negative to date. Synovial fluid knee and abscess of wrist with no growth. The patient was previously on vancomycin and Zosyn. CTA negative for PE , but showed extensive bilateral airspace disease, presumably infectious or inflammatory and moderate right and small left pleural effusions. 02/17 Sp Cefepime and IV Azithromycin treatment. SOB/hypoxemia: secondary to acute CHF exacerbation. much improved. Strict I&Os. on lasix 40mg IV q12hrs. Trop 0.03. Status post cardiac catheterization, unremarkable. Ejection fraction 35-40%. Seen by cardiology started on Coreg, lisinopril continued. Repeat echocardiogram as outpatient. Prednisone discontinued 02/16. Patient on room air sating well. Acute CHF: EF 35-40%. lasix IV 40mg q12hrs, fluid restriction 1500ml/day, low sodium diet. 02/17 Hold lasix due to low bp. Acute renal failure-likely cardiorenal, continue Lasix, creatinine stable. Monitor BMP tomorrow. Switch Lasix to oral, possibly tomorrow. Hypokalemia: resolved. Macrocytic anemia: Likely related to alcohol abuse. See [facility] protocol. The patient had a EGD with biopsy done on 02/08 for her anemia. Per report 2 cm hiatal hernia noted, class a esophagitis, mild gastritis in the gastric atrium with multiple biopsies obtained, normal duodenal mucosa retroflexion was performed and normal. For now the plan is to await biopsy results, continue PPI , capsule endoscopy as an outpatient if continued drop hemoglobin. GI has signed off. Hypertension: Continue lisinopril daily, Vasotec and clonidine when necessary. Diabetes: Sliding scale, diabetic diet. HbA1C 5.4. BS elevated secondary to steroid use. Neuropathy/foot pain: pt describes her pain as "pins and needles" she does have some decreased sensation. Continue gabapentin 100mg po TID and titrate up slowly. COPD exacerbation: SP IV antibiotic and oral prednisone treatment. resolved Anxiety & Insomnia: ativan 0.25 mg q6 prn, restoril for insomnia 02/17/17 Hypotension: Hold BP medications and IV lasix due to hypotension. Will give IV fluid bolus of 250 ml of normal saline until bp better. DVT prophylaxis: Heparin Discharge Planning DC pending stabilization of BP. Manav Torres MD Feb 17, 2017 15:44
[2017-02-17] MEDS: ACETAMINOPHEN 325 MG TAB PO PRN (15:54)
[2017-02-17] MEDS: LORazepam 0.5 MG TAB PO PRN (21:28)
[2017-02-18] VITALS: BP 109/61; PULSE 78; RESP 16; TEMP 97.9; O2SAT 98
[2017-02-18 08:00] VITALS: BP 113/55; PULSE 89; RESP 15; TEMP 97.5; O2SAT 96
[2017-02-18] MEDS: INSULIN ASPART SUPPLEMENTAL SCALE SQ SCH ×2 (08:00→12:00)
[2017-02-18] MEDS: GABAPENTIN 100 MG CAP PO SCH ×2 (09:00→13:00)
[2017-02-18] MEDS: REMOVE OLD PATCH T-DERMAL SCH (09:00)
[2017-02-18] MEDS: HEPARIN SODIUM - SQ 10,000 UNITS/ML VIAL SQ SCH (09:00)
[2017-02-18] MEDS: PANTOPRAZOLE SOD 40 MG DELAYED RELEASE TAB PO SCH (09:00)
[2017-02-18] MEDS: DOCUSATE SODIUM 50 MG/SENNA 8.6 MG TAB PO SCH (09:00)
[2017-02-18] MEDS: NICOTINE 21 MG/24 HR PATCH T-DERMAL SCH (09:33)
[2017-02-18] MEDS: THIAMINE HCL 100 MG TAB PO SCH (09:33)
[2017-02-18] MEDS: POTASSIUM CHLORIDE 20 MEQ CONTROLLED RELEASE TAB PO SCH (09:33)
[2017-02-18] MEDS: ACETAMINOPHEN 325 MG TAB PO PRN (09:35)
[2017-02-18] MEDS: SODIUM CHLORIDE 0.9% FLUSH 10 ML FLUSH IV FLUSH SCH (09:35)
[2017-02-18 10:26] LABS: HEMOGLOBIN A1a 1.3 %; HEMOGLOBIN A1b 0.9 %; HEMOGLOBIN Ao 83.5 %; HEMOGLOBIN F 1.1 %; HEMOGLOBIN LA1C 2.7 %; HEMOGLOBIN P3 5.6 %
[2017-02-18] MEDS ORDERED: WALKER WHEELS/F1 MIS (11:00)
[2017-02-18] MEDS ORDERED: shower chair (11:02)
[2017-02-18 12:00] VITALS: BP 101/59; PULSE 87; RESP 16; TEMP 97.9; O2SAT 97
== END 2017-02-18 14:22 | disposition home or self-care (01) | DRG 871 ==
LOC: NEPC 14:15 → NEDA 17:13 → N05A 19:04 → HIMW 02-11 07:30 → N07B 02-16 19:18
PROVIDERS: ADMIT Internal Medicine; ATTEND Hospitalist
PROC: 0S9D3ZX Drainage of Left Knee Joint, Percutaneous Approach, Diagnostic (ICD-10-PCS; principal; 2017-02-07)
PROC: 0R9P3ZX Drainage of Left Wrist Joint, Percutaneous Approach, Diagnostic (ICD-10-PCS; 2017-02-08)
PROC: 0DB68ZX Excision of Stomach, Via Natural or Artificial Opening Endoscopic, Diagnostic (ICD-10-PCS; 2017-02-08)
PROC: 5A09357 Assistance with Respiratory Ventilation, Less than 24 Consecutive Hours, Continuous Positive Airway Pressure (ICD-10-PCS; 2017-02-11)
PROC: 4A023N8 Measurement of Cardiac Sampling and Pressure, Bilateral, Percutaneous Approach (ICD-10-PCS; 2017-02-14)
PROC: B2111ZZ Fluoroscopy of Multiple Coronary Arteries using Low Osmolar Contrast (ICD-10-PCS; 2017-02-14)
DX: A41.9 Sepsis, unspecified organism (principal); I50.21 Acute systolic (congestive) heart failure; N17.9 Acute kidney failure, unspecified; J18.9 Pneumonia, unspecified organism; I42.8 Other cardiomyopathies; E87.2 Acidosis; J44.0 Chronic obstructive pulmonary disease with (acute) lower respiratory infection; I95.9 Hypotension, unspecified; I11.0 Hypertensive heart disease with heart failure; L03.116 Cellulitis of left lower limb; J44.1 Chronic obstructive pulmonary disease with (acute) exacerbation; E86.0 Dehydration; E87.6 Hypokalemia; D53.9 Nutritional anemia, unspecified; F41.9 Anxiety disorder, unspecified; M25.422 Effusion, left elbow; M25.532 Pain in left wrist; K20.9 Esophagitis, unspecified; K44.9 Diaphragmatic hernia without obstruction or gangrene; K29.60 Other gastritis without bleeding; G47.00 Insomnia, unspecified; R09.02 Hypoxemia; F10.10 Alcohol abuse, uncomplicated; F17.210 Nicotine dependence, cigarettes, uncomplicated; E11.65 Type 2 diabetes mellitus with hyperglycemia; G62.9 Polyneuropathy, unspecified; T38.0X5A Adverse effect of glucocorticoids and synthetic analogues, initial encounter; T50.2X5A Adverse effect of carbonic-anhydrase inhibitors, benzothiadiazides and other diuretics, initial encounter; M71.22 Synovial cyst of popliteal space [Baker], left knee; Z88.4 Allergy status to anesthetic agent
CPT/HCPCS: 20610; 36600; 71010; 71275; 73110; 73721; 74000; 74176; 76937; 77003; 80048; 80053; 80202; 80307; 81001; 82565; 82607; 82728; 82746; 82784; 82805; 82810; 82948; 83036; 83516; 83540; 83550; 83605; 83735; 83880; 84100; 84132; 84439; 84443; 84484; 85002; 85025; 85379; 85652; 86038; 86140; 86200; 86430; 86850; 86900; 86901; 87040; 87070; 87205; 87641; 88305; 88312; 89051; 89060; 93005; 93306; 93460; 93971; 94002; 94640; 94664; 96361; 96365; 96375; C1769; C1893; J0456; J0692; J1644; J1815; J1885; J1940; J2060; J2250; J2270; J2405; J2543; J3010; J3370; J3480; J7030; J7040; J7050; J7512; Q9963; Q9967

== ENCOUNTER 2017-04-06 12:57 | Emergency (ER) | payer SELFPAY ==
[~2017-04-06] VITALS: Ht 165.1 cm; Wt 56.5 kg
[~2017-04-06 12:57] MED LIST: CARV3.125 PO; FURO20TA PO; LISI10TA3 PO; NICO21DI25 T-DERMAL; WALKER WHEELS/F1 MIS; shower chair
[2017-04-06 12:58] VITALS: BP 134/63; PULSE 88; RESP 18; TEMP 98.7; O2SAT 96
--- NOTE | 2017-04-06 14:50 | PD ---
HPI Chief Complaint: Edema Time Seen by Provider: 14:42 Travel History International Travel<30 days: No Contact w/Intl Traveler<30days: No Traveled to known affect area: No History of Present Illness HPI 56-year-old female presents to the emergency Department with complaint of right arm swelling and Day. Unknown injury. Thought maybe she sprained her wrist and has been treating it as she did injure it. The pain and swelling started in her right wrist and has since worsened. She was discharged from [place] in February after staying for 3 weeks for left lower extremity edema; states she was admitted and worked up for her heart being enlarged and having water around her heart. Denies fever, vomiting; although she said she woke up sweating last night and may have had a fever. Denies paresthesias, loss of sensation to the affected extremity. Reports decreased range of motion at the elbow and wrist secondary to pain and swelling. Denies history of DVT/PE. Denies anticoagulant therapy. Denies chest pain, shortness of breath. Has taken ibuprofen for symptom management. Rates pain 10/10. Pain is worse with movement. Not really relieved with rest either. Stabbing sensation. Has an appointment for follow-up with manager [facility] and did her lab work this morning. Allergies to procaine. Has no other medical complaints. No other modifying factors or associated signs and symptoms. PFSH Past Medical History Anxiety: No Depression: Yes Cancer: No Diabetes: Yes (pre-diabetic) Patient Takes Glucophage: No Endocrine: Yes Genitourinary: No Hypertension: Yes Immune Disorder: No Musculoskeletal: Yes Psychiatric: Yes Respiratory: No Migraines: Yes ?: Not Menopausal: Yes Past Surgical History Abdominal Surgery: Yes (Exploratory surgery) Other Surgery: Yes Social History Alcohol Use: Yes Tobacco Use: Yes Substance Use: No Allergies-Medications (Allergen,Severity, Reaction): Coded Allergies: procaine (Verified Allergy, Unknown, 02/04/17) Reported Meds & Prescriptions Reported Meds & Active Scripts Active Fenton (Hydrocodone-Acetaminophen) 5 Mg-325 Mg Tab 1 Tab PO Q4H PRN Clindamycin (Clindamycin HCl) 150 Mg Cap 300 Mg PO Q6H 10 Days [shower chair] Unit Walker with Front Wheels (Device) 1 Mis Mis Ea .ROUTE DIRECTED Furosemide 20 Mg Tab 20 Mg PO DAILY Lisinopril 10 Mg Tab 10 Mg PO DAILY Coreg (Carvedilol) 3.125 Mg Tab 3.125 Mg PO Q12HR hold if systolic blood pressure less [id number] or heart rate less than 60. Eq Nicotine (Nicotine) 21 Mg/24 Hour Dis 1 Patch T-DERMAL DAILY Review of Systems Except as stated in HPI: all other systems reviewed are Neg Physical Exam Narrative GENERAL: Well-nourished, well-developed female patient, in no acute distress SKIN: Warm and dry. HEAD: Atraumatic. Normocephalic. EYES: Pupils equal and round. No scleral icterus. No injection or drainage. ENT: Mucosa pink and moist. Airway patent. NECK: Trachea midline. CARDIOVASCULAR: Regular rate. RESPIRATORY: No accessory muscle use. GASTROINTESTINAL: Flat. MUSCULOSKELETAL: Left arm is edematous, tender to touch, and warm to touch from the fingertips to the elbow; no obvious deformities; 2+ radial pulse; sensory intact; decreased flexion and patient unable to completely extend the arm at the elbow. No obvious deformities. No clubbing. No cyanosis. No edema. NEUROLOGICAL: Awake and alert. Oriented 3. No obvious cranial nerve deficits. Motor grossly within normal limits. Normal speech. PSYCHIATRIC: Appropriate mood and affect; insight and judgment normal. Data Data Last Documented VS Vital Signs Date Time Temp Pulse Resp B/P (MAP) Pulse Ox O2 Delivery O2 Flow Rate FiO2 04/06/17 17:15 04/06/17 12:58 98.7 88 18 96 Room Air Orders Orders Basic Metabolic Panel (Bmp) (04/06/17 14:50) Complete Blood Count With Diff (04/06/17 14:50) Iv Access Insert/Monitor (04/06/17 14:50) Sodium Chloride 0.9% Flush (Ns Flush) (04/06/17 15:00) Elbow, Limited (Ap&Lat) (04/06/17 14:50) Wrist, Complete (Qgh2yqy) (04/06/17 14:50) Us Arm Venous Doppler (04/06/17 ) Acetamin-Hydrocod 325-5 Mg (Fenton 5-325 (04/06/17 15:00) Ed Discharge Order (04/06/17 17:07) Labs Laboratory Tests Test 04/06/17 15:25 White Blood Count 9.1 TH/MM3 Red Blood Count 2.96 MIL/MM3 Hemoglobin 10.1 GM/DL Hematocrit 29.0 % Mean Corpuscular Volume 98.0 FL Mean Corpuscular Hemoglobin 34.2 PG Mean Corpuscular Hemoglobin Concent 34.9 % Red Cell Distribution Width 14.2 % Platelet Count 331 TH/MM3 Mean Platelet Volume 7.9 FL Neutrophils (%) (Auto) 75.1 % Lymphocytes (%) (Auto) 14.6 % Monocytes (%) (Auto) 7.4 % Eosinophils (%) (Auto) 2.2 % Basophils (%) (Auto) 0.7 % Neutrophils # (Auto) 6.8 TH/MM3 Lymphocytes # (Auto) 1.3 TH/MM3 Monocytes # (Auto) 0.7 TH/MM3 Eosinophils # (Auto) 0.2 TH/MM3 Basophils # (Auto) 0.1 TH/MM3 CBC Comment DIFF FINAL Differential Comment Blood Urea Nitrogen 15 MG/DL Creatinine 1.03 MG/DL Random Glucose 109 MG/DL Calcium Level 9.6 MG/DL Sodium Level 140 MEQ/L Potassium Level 3.9 MEQ/L Chloride Level 102 MEQ/L Carbon Dioxide Level 28.8 MEQ/L Anion Gap 9 MEQ/L Estimat Glomerular Filtration Rate 56 ML/MIN [facility] Medical Decision Making Medical Screen Exam Complete: Yes Emergency Medical Condition: Yes Medical Record Reviewed: Yes Differential Diagnosis Arm injury, cellulitis, DVT Narrative Course 56-year-old female with left arm pain and swelling from the elbow to the fingertips. I discussed the patient with Dr. Schmidt he agrees with my plan of care. Right elbow x-ray, right wrist x-ray, right venous Doppler ultrasound , IV site, CBC, BMP ordered. Lortab ordered. 1653: CBC unremarkable. BMP unremarkable. Right elbow x-ray, right wrist x- ray, right upper extremity venous ultrasound concludes: Wrist X-Ray 04/06/17 1450 Signed Impressions: Service Date/Time: Thursday, April 06, 2017 15:29 - CONCLUSION: Mild osteopenia and minimal degenerative change. Zhen Owen MD Elbow X-Ray 04/06/17 1450 Signed Impressions: Service Date/Time: Thursday, April 06, 2017 15:31 - CONCLUSION: Soft tissue swelling over the olecranon which could indicate bursitis. Zhen Owen MD Upper Extremity Ultrasound 04/06/17 0000 Signed Impressions: Service Date/Time: Thursday, April 06, 2017 16:00 - CONCLUSION: Negative for upper extremity deep venous thrombosis. Renato Morales MD Provided a copy of the x-ray and ultrasound reports. I discussed findings and patient with Dr. Schmidt and he agrees the patient can be discharged home with a prescription for pain medication and antibiotics. Clindamycin, Fenton prescribed for home. Instructed patient to elevate the affected extremity and to follow-up with primary care provider on Sunday. I offered the patient an arm sling and she declined. Instructed patient to follow up with primary care provider. Patient verbalizes understanding and agreement with treatment plan. Patient is medically cleared and stable for discharge. Discussed reasons to return to the emergency department. Patient agrees with treatment plan. The patients vital signs are stable and the patient is stable for outpatient follow- up and treatment. Patient discharged home, stable and in no acute distress. Diagnosis Primary Impression: Edema of upper extremity Referrals: Primary Care Physician Patient Instructions: Edema (ED), General Instructions Additional Instructions: Pain medication as prescribed Antibiotics as prescribed Elevate affected extremity Follow-up with primary care provider in one to 2 days Follow-up with manager solution Return to the emergency department immediately for worsening of symptoms Med/Other Pt SpecificInfo: Prescription(s) given Scripts Hydrocodone-Acetaminophen (Fenton) 5 Mg-325 Mg Tab 1 TAB PO Q4H Y for PAIN, #15 TAB 0 Refills Prov: Abida Farmer 04/06/17 Clindamycin (Clindamycin) 150 Mg Cap 300 MG PO Q6H for Infection for 10 Days, #80 CAP 0 Refills Prov: Abida Farmer 04/06/17 Disposition: 01 DISCHARGE HOME Condition: Stable Abida Farmer Apr 06, 2017 14:50
[2017-04-06] MEDS ORDERED: ACETAMINOPHEN/HYDROcodone 325 MG/5 MG TAB PO ONE (15:00)
[2017-04-06] MEDS ORDERED: SODIUM CHLORIDE 0.9% FLUSH 10 ML FLUSH IV FLUSH PRN (15:00)
[2017-04-06 15:42] LABS: AUTOMATED NEUTROPHIL # 6.8 TH/MM3 (1.8-7.7); BASOPHIL # 0.1 TH/MM3 (0-0.2); BASOPHIL % 0.7 % (0.0-2.0); EOSINOPHIL # 0.2 TH/MM3 (0-0.4); EOSINOPHIL % 2.2 % (0.0-4.0); HEMOGLOBIN 10.1 GM/DL (11.6-15.3); LYMPH % 14.6 % (9.0-44.0); LYMPHOCYTE # 1.3 TH/MM3 (1.0-4.8); MEAN CORPUSCULAR HEMOGLOBIN 34.2 PG (27.0-34.0); MEAN CORPUSCULAR HGB CONC 34.9 % (32.0-36.0); MEAN PLATELET VOLUME 7.9 FL (7.0-11.0); MONO % 7.4 % (0.0-8.0); MONOCYTE # 0.7 TH/MM3 (0-0.9); NEUT % 75.1 % (16.0-70.0); PLATELET COUNT 331 TH/MM3 (150-450); RED BLOOD COUNT 2.96 MIL/MM3 (4.00-5.30); RED CELL DISTRIBUTION WIDTH 14.2 % (11.6-17.2); WHITE BLOOD COUNT 9.1 TH/MM3 (4.0-11.0)
--- NOTE | 2017-04-06 15:48 | RADRPT ---
EXAM DATE/TIME: 04/06/2017 15:29 [facility] COMPARISON: No previous studies available for comparison. INDICATIONS : Right wrist pain and swelling, no injury. MEDICAL HISTORY : None. SURGICAL HISTORY : None. ENCOUNTER: Initial ACUITY: 4 - 6 days PAIN SCORE: 10/10 LOCATION: Right distal wrist FINDINGS: Three view examination of the right wrist demonstrates no soft tissue swelling, dislocation, or fract ure. The carpal bones are in normal alignment. Minimal degenerative changes are present with slight sclerosis. Bony mineralization is normal. CONCLUSION: Mild osteopenia and minimal degenerative change. Zhen Owen MD on April 06, 2017 at 15:46 Board Certified Radiologist. This report was verified electronically.
--- NOTE | 2017-04-06 15:49 | RADRPT ---
EXAM DATE/TIME: 04/06/2017 15:31 [facility] COMPARISON: No previous studies available for comparison. INDICATIONS : Right elbow pain and swelling, no injury. MEDICAL HISTORY : None. SURGICAL HISTORY : None. ENCOUNTER: Initial ACUITY: 4 - 6 days PAIN SCORE: 8/10 LOCATION: Right elbow FINDINGS: Limited AP and lateral views of the right elbow were obtained and demonstrate normal mineralization a nd alignment. There is focal soft tissue swelling over the olecranon with no radiopaque foreign body. The radial head is intact and there is no evidence of a joint effusion. CONCLUSION: Soft tissue swelling over the olecranon which could indicate bursitis. Zhen Owen MD on April 06, 2017 at 15:47 Board Certified Radiologist. This report was verified electronically.
[2017-04-06 16:18] LABS: BICARBONATE 28.8 MEQ/L (21.0-32.0); CALCIUM 9.6 MG/DL (8.5-10.1); CREATININE 1.03 MG/DL (0.50-1.00)
--- NOTE | 2017-04-06 16:43 | RADRPT ---
EXAM DATE/TIME: 04/06/2017 16:00 [facility] COMPARISON: No previous studies available for comparison. INDICATIONS : Right arm edema. MEDICAL HISTORY : Hypertension. Dizziness. Diabetes. Depression. Blood transfusion. SURGICAL HISTORY : Exploratory surgery. ENCOUNTER: Initial ACUITY: 1 week PAIN SCORE: 7/10 LOCATION: Right arm. FINDINGS: There is spontaneous flow documented in the brachial, basilic, cephalic, axillary, and subclavian vei ns. The vessels are compressible and augmentation response is documented. No filling defects are se en. The flow is phasic with respiration. Direction of flow in the jugular vein is caudal. CONCLUSION: Negative for upper extremity deep venous thrombosis. Renato Morales MD on April 06, 2017 at 16:40 Board Certified Radiologist. This report was verified electronically.
[2017-04-06] MEDS ORDERED: NORC5TAB PO (16:59)
[2017-04-06] MEDS ORDERED: CLIN150C14 PO (16:59)
== END 2017-04-06 17:23 | disposition home or self-care (01) ==
LOC: NEPD 12:57
DX: R60.0 Localized edema (principal); M85.88 Other specified disorders of bone density and structure, other site; F32.9 Major depressive disorder, single episode, unspecified; R73.03 Prediabetes; I10 Essential (primary) hypertension; Z72.0 Tobacco use; Z79.899 Other long term (current) drug therapy
CPT/HCPCS: 73070; 73110; 80048; 85025; 93971; 99285